=== PATIENT | male | born 1960 | race Caucasian/White ===

== ENCOUNTER 2020-04-16 09:23 | Outpatient (REF) | payer MEDICARE, MEDICAID, SELFPAY ==
[2020-04-16 09:49] LABS: MANUAL DIFF FLAG NO
[2020-04-16 09:50] LABS: Basophils Percent Auto 0.5 % (0-2); Eosinophils Absolute Auto 0.1 X10*3/uL (0.0-0.4); Hematocrit 41.1 % (42-52); Hemoglobin 13.5 g/dl (14.0-18.0); Imm Gran Abs Auto 0.03 X10*3/uL (0.00-0.03); Imm Gran Pct Auto 0.5 % (0.0-0.4); Lymphocytes Absolute Auto 1.3 X10*3/uL (1.2-4.9); Lymphocytes Percent Auto 20.7 % (20-40); Mean Corpuscular HGB Conc 32.8 g/dl (31.0-36.0); Mean Corpuscular Hemoglobin 26.8 pg (27.0-33.0); Mean Corpuscular Volume 81.5 fL (80-98); Mean Platelet Volume 10.6 fL (9.4-12.4); Monocytes Absolute Auto 0.4 X10*3/uL (0.1-1.2); Monocytes Percent Auto 6.7 % (2-11); Neutrophils Absolute Auto 4.5 X10*3/uL (2.0-8.3); Neutrophils Percent Auto 69.6 % (45-73); Platelet Count 139 X10*3/uL (160-400); Red Blood Count 5.04 X10*6/uL (4.60-5.80); White Blood Count 6.4 X10*3/uL (4.8-10.8)
[2020-04-16 10:25] LABS: Alanine Aminotransferase 26 U/L (0-40); Albumin Level 4.1 g/dL (3.5-5.0); Alkaline Phosphatase 112 U/L (39-117); Anion Gap 13 (12-20); Aspartate Amino Transferase 18 U/L (5-37); Bilirubin Total 0.5 mg/dL (0.0-1.0); Blood Urea Nitrogen 20 mg/dL (9-16); Calcium 8.1 mg/dL (8.4-10.2); Carbon Dioxide 23 mmol/L (22-29); Chloride 107 mmol/L (96-108); Estimated Glomerular Filt Rate 36; Glucose Random 222 mg/dL (60-115); Magnesium 2.1 mg/dL (1.6-2.6); Phosphorus 2.4 mg/dL (2.7-4.5); Sodium 139 mmol/L (135-145); Total Protein 6.4 g/dL (6.5-8.0)
[2020-04-17 11:41] LABS: Sirolimus 5.8 ng/mL (3.0-18.0)
== END 2020-04-16 09:24 | disposition home or self-care (01) ==
LOC: HO.LABR 09:23
PROVIDERS: PCP Internal Medicine; Visit Provider Internal Medicine
DX: Z94.4 Liver transplant status (principal)
CPT/HCPCS: 36415; 80053; 80195; 83735; 84100; 85025

== ENCOUNTER 2020-06-04 10:21 | Outpatient (REF) | payer MEDICARE, MEDICAID, SELFPAY ==
[2020-06-04 12:14] LABS: Cholesterol 275 mg/dL; HDL Cholesterol 34 mg/dL; LDL Cholesterol Calculated 198 mg/dl; Triglycerides 219 mg/dL
[2020-06-04 13:42] LABS: Reflex LDLD? No
[2020-06-05 07:23] LABS: Sirolimus 6.6 ng/mL (3.0-18.0)
== END 2020-06-04 10:22 | disposition home or self-care (01) ==
LOC: HO.LABR 10:21
PROVIDERS: Absent Provider Internal Medicine Endocrinology, Diabetes & Metabolism; PCP Internal Medicine; Visit Provider Internal Medicine
DX: E78.2 Mixed hyperlipidemia (principal)
CPT/HCPCS: 36415; 80061; 80195

== ENCOUNTER 2020-07-05 09:16 | Outpatient (REF) | payer MEDICARE, MEDICAID, SELFPAY ==
[2020-07-05 09:47] LABS: MANUAL DIFF FLAG NO
[2020-07-05 09:51] LABS: Basophils Percent Auto 0.3 % (0-2); Eosinophils Absolute Auto 0.2 X10*3/uL (0.0-0.4); Eosinophils Percent Auto 2.7 % (0-4); Hematocrit 40.4 % (42-52); Hemoglobin 13.3 g/dl (14.0-18.0); Imm Gran Abs Auto 0.03 X10*3/uL (0.00-0.03); Imm Gran Pct Auto 0.4 % (0.0-0.4); Lymphocytes Absolute Auto 1.3 X10*3/uL (1.2-4.9); Lymphocytes Percent Auto 19.4 % (20-40); Mean Corpuscular HGB Conc 32.9 g/dl (31.0-36.0); Mean Corpuscular Hemoglobin 27.1 pg (27.0-33.0); Mean Corpuscular Volume 82.3 fL (80-98); Mean Platelet Volume 11.3 fL (9.4-12.4); Monocytes Absolute Auto 0.5 X10*3/uL (0.1-1.2); Monocytes Percent Auto 7.1 % (2-11); Neutrophils Absolute Auto 4.7 X10*3/uL (2.0-8.3); Neutrophils Percent Auto 70.1 % (45-73); Platelet Count 150 X10*3/uL (160-400); Red Blood Count 4.91 X10*6/uL (4.60-5.80); Red Cell Distribution Width 14.2 % (11.0-16.0); White Blood Count 6.8 X10*3/uL (4.8-10.8)
[2020-07-05 10:18] LABS: Alanine Aminotransferase 40 U/L (0-40); Alkaline Phosphatase 112 U/L (39-117); Anion Gap 13 (12-20); Aspartate Amino Transferase 26 U/L (5-37); Bilirubin Total 0.6 mg/dL (0.0-1.0); Blood Urea Nitrogen 19 mg/dL (9-16); Calcium 8.5 mg/dL (8.4-10.2); Carbon Dioxide 23 mmol/L (22-29); Chloride 107 mmol/L (96-108); Estimated Glomerular Filt Rate 39; Glucose Random 212 mg/dL (60-115); Magnesium 2.1 mg/dL (1.6-2.6); Phosphorus 2.7 mg/dL (2.7-4.5); Potassium 4.2 mmol/L (3.3-5.1); Sodium 139 mmol/L (135-145); Total Protein 6.4 g/dL (6.5-8.0)
[2020-07-06 04:32] LABS: Sirolimus 3.8 ng/mL (3.0-18.0)
== END 2020-07-05 09:17 | disposition home or self-care (01) ==
LOC: HO.LAB 09:16
PROVIDERS: PCP Internal Medicine; Visit Provider Internal Medicine
DX: Z94.4 Liver transplant status (principal)
CPT/HCPCS: 36415; 80053; 80195; 83735; 84100; 85025

== ENCOUNTER 2020-09-02 09:13 | Outpatient (REF) | payer MEDICARE, MEDICAID, SELFPAY ==
[2020-09-02 11:05] LABS: Basophils Percent Auto 0.4 % (0-2); Monocytes Absolute Auto 0.4 X10*3/uL (0.1-1.2); Red Cell Distribution Width 14.1 % (11.0-16.0)
[2020-09-02 11:07] LABS: Eosinophils Absolute Auto 0.1 X10*3/uL (0.0-0.4); Eosinophils Percent Auto 2.6 % (0-4); Hematocrit 41.2 % (42-52); Hemoglobin 13.7 g/dl (14.0-18.0); Imm Gran Abs Auto 0.03 X10*3/uL (0.00-0.03); Imm Gran Pct Auto 0.6 % (0.0-0.4); Lymphocytes Absolute Auto 1.2 X10*3/uL (1.2-4.9); Lymphocytes Percent Auto 23.5 % (20-40); Mean Corpuscular HGB Conc 33.3 g/dl (31.0-36.0); Mean Corpuscular Hemoglobin 28.1 pg (27.0-33.0); Mean Corpuscular Volume 84.6 fL (80-98); Mean Platelet Volume 11.2 fL (9.4-12.4); Monocytes Percent Auto 8.1 % (2-11); Neutrophils Absolute Auto 3.2 X10*3/uL (2.0-8.3); Neutrophils Percent Auto 64.8 % (45-73); Platelet Count 122 X10*3/uL (160-400); Red Blood Count 4.87 X10*6/uL (4.60-5.80); White Blood Count 4.9 X10*3/uL (4.8-10.8)
[2020-09-02 11:09] LABS: MANUAL DIFF FLAG NO
[2020-09-02 11:25] LABS: Alanine Aminotransferase 25 U/L (0-40); Alkaline Phosphatase 102 U/L (39-117); Anion Gap 15 (12-20); Aspartate Amino Transferase 16 U/L (5-37); Bilirubin Total 0.4 mg/dL (0.0-1.0); Blood Urea Nitrogen 22 mg/dL (9-16); Calcium 8.3 mg/dL (8.4-10.2); Carbon Dioxide 21 mmol/L (22-29); Chloride 108 mmol/L (96-108); Estimated Glomerular Filt Rate 38; Glucose Random 167 mg/dL (60-115); Phosphorus 2.3 mg/dL (2.7-4.5); Sodium 140 mmol/L (135-145); Total Protein 6.3 g/dL (6.5-8.0)
== END 2020-09-02 09:14 | disposition home or self-care (01) ==
LOC: HO.LABR 09:13
PROVIDERS: PCP Internal Medicine; Visit Provider Internal Medicine
DX: Z94.4 Liver transplant status (principal); Z79.899 Other long term (current) drug therapy
CPT/HCPCS: 36415; 80053; 80195; 83735; 84100; 85025

== ENCOUNTER 2020-10-11 10:31 | Outpatient (REF) | payer MEDICARE, MEDICAID, SELFPAY ==
[2020-10-11 11:17] LABS: MANUAL DIFF FLAG NO
[2020-10-11 11:45] LABS: Cholesterol 263 mg/dL; HDL Cholesterol 33 mg/dL; Triglycerides 425 mg/dL
[2020-10-11 11:59] LABS: Alanine Aminotransferase 29 U/L (0-40); Albumin Level 4.2 g/dL (3.5-5.0); Alkaline Phosphatase 115 U/L (39-117); Anion Gap 13 (12-20); Aspartate Amino Transferase 20 U/L (5-37); Bilirubin Total 0.7 mg/dL (0.0-1.0); Blood Urea Nitrogen 19 mg/dL (9-16); Calcium 8.9 mg/dL (8.4-10.2); Carbon Dioxide 22 mmol/L (22-29); Chloride 106 mmol/L (96-108); Estimated Glomerular Filt Rate 40; Glucose Random 142 mg/dL (60-115); Magnesium 2.2 mg/dL (1.6-2.6); Phosphorus 2.4 mg/dL (2.7-4.5); Potassium 4.3 mmol/L (3.3-5.1); Sodium 137 mmol/L (135-145); Total Protein 6.9 g/dL (6.5-8.0)
[2020-10-11 12:02] LABS: Basophils Percent Auto 0.4 % (0-2); Eosinophils Absolute Auto 0.1 X10*3/uL (0.0-0.4); Eosinophils Percent Auto 1.9 % (0-4); Hematocrit 42.7 % (42-52); Hemoglobin 14.2 g/dl (14.0-18.0); Imm Gran Abs Auto 0.03 X10*3/uL (0.00-0.03); Imm Gran Pct Auto 0.4 % (0.0-0.4); Lymphocytes Absolute Auto 1.4 X10*3/uL (1.2-4.9); Lymphocytes Percent Auto 18.6 % (20-40); Mean Corpuscular HGB Conc 33.3 g/dl (31.0-36.0); Mean Corpuscular Volume 84.2 fL (80-98); Mean Platelet Volume 11.1 fL (9.4-12.4); Monocytes Absolute Auto 0.6 X10*3/uL (0.1-1.2); Monocytes Percent Auto 7.6 % (2-11); Neutrophils Absolute Auto 5.2 X10*3/uL (2.0-8.3); Neutrophils Percent Auto 71.1 % (45-73); Platelet Count 158 X10*3/uL (160-400); Red Blood Count 5.07 X10*6/uL (4.60-5.80); Red Cell Distribution Width 13.2 % (11.0-16.0); White Blood Count 7.3 X10*3/uL (4.8-10.8)
[2020-10-11 13:03] LABS: Reflex LDLD? Yes
[2020-10-12 05:41] LABS: Sirolimus 2.7 ng/mL (3.0-18.0)
[2020-10-12 12:57] LABS: LDL Cholesterol Direct 170 mg/dL (<100)
== END 2020-10-11 10:32 | disposition home or self-care (01) ==
LOC: HO.LAB 10:31
PROVIDERS: Absent Provider Internal Medicine Endocrinology, Diabetes & Metabolism; PCP Internal Medicine; Visit Provider Internal Medicine
DX: E78.2 Mixed hyperlipidemia (principal); Z94.4 Liver transplant status
CPT/HCPCS: 36415; 80053; 80061; 80195; 83721; 83735; 84100; 85025

== ENCOUNTER 2020-12-02 09:40 | Outpatient (REF) | payer MEDICARE, MEDICAID, SELFPAY ==
[2020-12-02 10:01] LABS: MANUAL DIFF FLAG NO
[2020-12-02 10:10] LABS: Basophils Percent Auto 0.3 % (0-2); Eosinophils Absolute Auto 0.2 X10*3/uL (0.0-0.4); Eosinophils Percent Auto 2.5 % (0-4); Hematocrit 41.3 % (42-52); Hemoglobin 14.1 g/dl (14.0-18.0); Imm Gran Abs Auto 0.02 X10*3/uL (0.00-0.03); Imm Gran Pct Auto 0.3 % (0.0-0.4); Lymphocytes Absolute Auto 1.2 X10*3/uL (1.2-4.9); Lymphocytes Percent Auto 18.2 % (20-40); Mean Corpuscular HGB Conc 34.1 g/dl (31.0-36.0); Mean Corpuscular Hemoglobin 29.1 pg (27.0-33.0); Mean Corpuscular Volume 85.3 fL (80-98); Mean Platelet Volume 11.1 fL (9.4-12.4); Monocytes Absolute Auto 0.4 X10*3/uL (0.1-1.2); Monocytes Percent Auto 6.7 % (2-11); Neutrophils Absolute Auto 4.6 X10*3/uL (2.0-8.3); Platelet Count 153 X10*3/uL (160-400); Red Blood Count 4.84 X10*6/uL (4.60-5.80); Red Cell Distribution Width 13.1 % (11.0-16.0); White Blood Count 6.4 X10*3/uL (4.8-10.8)
[2020-12-02 10:33] LABS: Alanine Aminotransferase 22 U/L (0-40); Albumin Level 4.1 g/dL (3.5-5.0); Alkaline Phosphatase 115 U/L (39-117); Anion Gap 13 (12-20); Aspartate Amino Transferase 17 U/L (5-37); Bilirubin Total 0.4 mg/dL (0.0-1.0); Blood Urea Nitrogen 20 mg/dL (9-16); Calcium 8.7 mg/dL (8.4-10.2); Carbon Dioxide 21 mmol/L (22-29); Chloride 110 mmol/L (96-108); Estimated Glomerular Filt Rate 37; Glucose Random 198 mg/dL (60-115); Phosphorus 2.5 mg/dL (2.7-4.5); Potassium 4.1 mmol/L (3.3-5.1); Sodium 140 mmol/L (135-145); Total Protein 6.7 g/dL (6.5-8.0)
[2020-12-03 18:37] LABS: Sirolimus 2.8 ng/mL (3.0-18.0)
== END 2020-12-02 09:41 | disposition home or self-care (01) ==
LOC: HO.LABR 09:40
PROVIDERS: PCP Internal Medicine; Visit Provider Internal Medicine
DX: Z94.4 Liver transplant status (principal)
CPT/HCPCS: 36415; 80053; 80195; 83735; 84100; 85025

== ENCOUNTER 2021-02-02 08:42 | Outpatient (REF) | payer MEDICARE, MEDICAID, SELFPAY ==
[2021-02-02 09:44] LABS: MANUAL DIFF FLAG NO
[2021-02-02 09:47] LABS: Basophils Percent Auto 0.3 % (0-2); Eosinophils Absolute Auto 0.1 X10*3/uL (0.0-0.4); Eosinophils Percent Auto 1.6 % (0-4); Hematocrit 42.8 % (42-52); Hemoglobin 14.7 g/dl (14.0-18.0); Imm Gran Abs Auto 0.02 X10*3/uL (0.00-0.03); Imm Gran Pct Auto 0.3 % (0.0-0.4); Lymphocytes Absolute Auto 1.5 X10*3/uL (1.2-4.9); Mean Corpuscular HGB Conc 34.3 g/dl (31.0-36.0); Mean Corpuscular Hemoglobin 28.9 pg (27.0-33.0); Mean Corpuscular Volume 84.3 fL (80-98); Mean Platelet Volume 11.1 fL (9.4-12.4); Monocytes Absolute Auto 0.4 X10*3/uL (0.1-1.2); Monocytes Percent Auto 6.4 % (2-11); Neutrophils Absolute Auto 4.4 X10*3/uL (2.0-8.3); Neutrophils Percent Auto 68.4 % (45-73); Platelet Count 156 X10*3/uL (160-400); Red Blood Count 5.08 X10*6/uL (4.60-5.80); Red Cell Distribution Width 13.2 % (11.0-16.0); White Blood Count 6.4 X10*3/uL (4.8-10.8)
[2021-02-02 10:25] LABS: Alanine Aminotransferase 24 U/L (0-40); Albumin Level 4.1 g/dL (3.5-5.0); Alkaline Phosphatase 119 U/L (39-117); Anion Gap 11 (12-20); Aspartate Amino Transferase 15 U/L (5-37); Bilirubin Total 0.5 mg/dL (0.0-1.0); Blood Urea Nitrogen 19 mg/dL (9-16); Carbon Dioxide 23 mmol/L (22-29); Chloride 109 mmol/L (96-108); Estimated Glomerular Filt Rate 38; Glucose Random 185 mg/dL (60-115); Magnesium 2.1 mg/dL (1.6-2.6); Potassium 3.9 mmol/L (3.3-5.1); Sodium 139 mmol/L (135-145); Total Protein 6.7 g/dL (6.5-8.0)
[2021-02-02 10:45] LABS: Phosphorus 2.3 mg/dL (2.7-4.5)
[2021-02-03 10:12] LABS: Sirolimus 4.1 ng/mL (3.0-18.0)
== END 2021-02-02 08:43 | disposition home or self-care (01) ==
LOC: HO.LABR 08:42
PROVIDERS: PCP Internal Medicine; Visit Provider Internal Medicine
DX: Z94.4 Liver transplant status (principal)
CPT/HCPCS: 36415; 80053; 80195; 83735; 84100; 85025

== ENCOUNTER 2021-03-30 09:28 | Outpatient (REF) | payer MEDICARE, MEDICAID, SELFPAY ==
[2021-03-30 09:45] LABS: MANUAL DIFF FLAG NO
[2021-03-30 10:30] LABS: Basophils Percent Auto 0.2 % (0-2); Eosinophils Absolute Auto 0.1 X10*3/uL (0.0-0.4); Eosinophils Percent Auto 1.4 % (0-4); Hematocrit 41.8 % (42.0-52.0); Hemoglobin 14.2 g/dl (14.0-18.0); Imm Gran Abs Auto 0.03 X10*3/uL (0.00-0.03); Imm Gran Pct Auto 0.5 % (0.0-0.4); Lymphocytes Absolute Auto 1.2 X10*3/uL (1.2-4.9); Mean Corpuscular Hemoglobin 28.6 pg (27.0-33.0); Mean Corpuscular Volume 84.1 fL (80.0-98.0); Mean Platelet Volume 11.4 fL (9.4-12.4); Monocytes Absolute Auto 0.5 X10*3/uL (0.1-1.2); Monocytes Percent Auto 6.9 % (2-11); Neutrophils Absolute Auto 4.7 x10*3/uL (2.0-8.3); Platelet Count 159 X10*3/uL (160-400); Red Blood Count 4.97 X10*6/uL (4.60-5.80); Red Cell Distribution Width 13.1 % (11.0-16.0); White Blood Count 6.5 X10*3/uL (4.8-10.8)
[2021-03-30 10:44] LABS: Alanine Aminotransferase 27 U/L (0-40); Albumin Level 4.3 g/dL (3.5-5.0); Alkaline Phosphatase 134 U/L (39-117); Anion Gap 12 (12-20); Aspartate Amino Transferase 22 U/L (5-37); Bilirubin Total 0.7 mg/dL (0.0-1.0); Blood Urea Nitrogen 15 mg/dL (9-16); Calcium 8.6 mg/dL (8.4-10.2); Carbon Dioxide 23 mmol/L (22-29); Chloride 108 mmol/L (96-108); Estimated Glomerular Filt Rate 37; Glucose Random 184 mg/dL (60-115); Magnesium 2.1 mg/dL (1.6-2.6); Phosphorus 2.3 mg/dL (2.7-4.5); Sodium 139 mmol/L (135-145); Total Protein 6.7 g/dL (6.5-8.0)
[2021-03-30 10:48] LABS: Cholesterol 171 mg/dL; HDL Cholesterol 32 mg/dL; LDL Cholesterol Calculated 94 mg/dl; Triglycerides 227 mg/dL
[2021-03-30 11:02] LABS: TSH reflex Free T4 2.19 uIU/mL (0.32-4.0)
[2021-03-30 11:03] LABS: Reflex LDLD? No
[2021-03-30 11:13] LABS: Vitamin B12 745 pg/mL (200-900)
[2021-03-31 11:31] LABS: Sirolimus 3.1 ng/mL (3.0-18.0)
== END 2021-03-30 09:29 | disposition home or self-care (01) ==
LOC: HO.LAB 09:28
PROVIDERS: Absent Provider Nurse Practitioner; PCP Internal Medicine; Visit Provider Internal Medicine
DX: Z94.4 Liver transplant status (principal); Z79.899 Other long term (current) drug therapy
CPT/HCPCS: 36415; 80053; 80061; 80195; 82607; 83735; 84100; 84443; 85025

== ENCOUNTER 2021-07-13 09:03 | Outpatient (REF) | payer MEDICARE, MEDICAID, SELFPAY ==
[2021-07-13 09:28] LABS: MANUAL DIFF FLAG NO
[2021-07-13 09:34] LABS: Basophils Percent Auto 0.2 % (0-2); Eosinophils Absolute Auto 0.1 X10*3/uL (0.0-0.4); Eosinophils Percent Auto 2.1 % (0-4); Hemoglobin 14.2 g/dl (14.0-18.0); Imm Gran Abs Auto 0.02 X10*3/uL (0.00-0.03); Imm Gran Pct Auto 0.4 % (0.0-0.4); Lymphocytes Absolute Auto 1.2 X10*3/uL (1.2-4.9); Lymphocytes Percent Auto 21.5 % (20-40); Mean Corpuscular HGB Conc 33.8 g/dl (31.0-36.0); Mean Corpuscular Hemoglobin 29.1 pg (27.0-33.0); Mean Corpuscular Volume 86.1 fL (80.0-98.0); Mean Platelet Volume 10.7 fL (9.4-12.4); Monocytes Absolute Auto 0.4 X10*3/uL (0.1-1.2); Monocytes Percent Auto 7.8 % (2-11); Neutrophils Absolute Auto 3.8 x10*3/uL (2.0-8.3); Platelet Count 145 X10*3/uL (160-400); Red Blood Count 4.88 X10*6/uL (4.60-5.80); Red Cell Distribution Width 12.9 % (11.0-16.0); White Blood Count 5.6 X10*3/uL (4.8-10.8)
[2021-07-13 10:53] LABS: Alanine Aminotransferase 42 U/L (0-40); Albumin Level 4.1 g/dL (3.5-5.0); Alkaline Phosphatase 125 U/L (39-117); Anion Gap 13 (12-20); Aspartate Amino Transferase 25 U/L (5-37); Bilirubin Total 0.6 mg/dL (0.0-1.0); Blood Urea Nitrogen 16 mg/dL (9-16); Calcium 9.1 mg/dL (8.4-10.2); Carbon Dioxide 23 mmol/L (22-29); Chloride 109 mmol/L (96-108); Estimated Glomerular Filt Rate 40; Glucose Random 141 mg/dL (60-115); Magnesium 2.1 mg/dL (1.6-2.6); Phosphorus 2.2 mg/dL (2.7-4.5); Potassium 4.2 mmol/L (3.3-5.1); Sodium 141 mmol/L (135-145); Total Protein 6.8 g/dL (6.5-8.0)
[2021-07-14 10:11] LABS: Sirolimus 2.3 ng/mL (3.0-18.0)
== END 2021-07-13 09:04 | disposition home or self-care (01) ==
LOC: HO.LABR 09:03
PROVIDERS: PCP Internal Medicine; Visit Provider Internal Medicine
DX: Z94.4 Liver transplant status (principal); Z79.899 Other long term (current) drug therapy
CPT/HCPCS: 36415; 80053; 80195; 83735; 84100; 85025

== ENCOUNTER 2021-10-18 10:44 | Outpatient (REF) | payer MEDICARE, MEDICAID, SELFPAY ==
[2021-10-18 11:01] LABS: MANUAL DIFF FLAG NO
[2021-10-18 11:13] LABS: Basophils Percent Auto 0.3 % (0-2); Eosinophils Absolute Auto 0.1 X10*3/uL (0.0-0.4); Eosinophils Percent Auto 1.2 % (0-4); Hematocrit 40.5 % (42.0-52.0); Hemoglobin 13.7 g/dl (14.0-18.0); Imm Gran Abs Auto 0.02 X10*3/uL (0.00-0.03); Imm Gran Pct Auto 0.3 % (0.0-0.4); Lymphocytes Absolute Auto 1.2 X10*3/uL (1.2-4.9); Lymphocytes Percent Auto 18.7 % (20-40); Mean Corpuscular HGB Conc 33.8 g/dl (31.0-36.0); Mean Corpuscular Hemoglobin 28.9 pg (27.0-33.0); Mean Corpuscular Volume 85.4 fL (80.0-98.0); Mean Platelet Volume 10.6 fL (9.4-12.4); Monocytes Absolute Auto 0.5 X10*3/uL (0.1-1.2); Monocytes Percent Auto 7.7 % (2-11); Neutrophils Absolute Auto 4.6 x10*3/uL (2.0-8.3); Neutrophils Percent Auto 71.8 % (45-73); Platelet Count 141 X10*3/uL (160-400); Red Blood Count 4.74 X10*6/uL (4.60-5.80); White Blood Count 6.5 X10*3/uL (4.8-10.8)
[2021-10-18 12:02] LABS: Alanine Aminotransferase 23 U/L (0-40); Alkaline Phosphatase 123 U/L (39-117); Anion Gap 10 (12-20); Aspartate Amino Transferase 16 U/L (5-37); Bilirubin Total 0.4 mg/dL (0.0-1.0); Blood Urea Nitrogen 18 mg/dL (9-16); Calcium 9.1 mg/dL (8.4-10.2); Carbon Dioxide 23 mmol/L (22-29); Chloride 110 mmol/L (96-108); Estimated Glomerular Filt Rate 39; Glucose Random 107 mg/dL (60-115); Magnesium 2.3 mg/dL (1.6-2.6); Potassium 4.2 mmol/L (3.3-5.1); Sodium 139 mmol/L (135-145); Total Protein 6.7 g/dL (6.5-8.0)
[2021-10-18 12:20] LABS: Phosphorus 2.2 mg/dL (2.7-4.5)
[2021-10-19 21:25] LABS: Sirolimus 2.6 ng/mL (3.0-18.0)
== END 2021-10-18 10:45 | disposition home or self-care (01) ==
LOC: HO.LABR 10:44
PROVIDERS: PCP Internal Medicine; Visit Provider Internal Medicine
DX: Z94.4 Liver transplant status (principal); Z79.899 Other long term (current) drug therapy
CPT/HCPCS: 36415; 80053; 80195; 83735; 84100; 85025

== ENCOUNTER 2021-12-01 09:25 | Outpatient (REF) | payer MEDICARE, MEDICAID, SELFPAY ==
[2021-12-01 09:52] LABS: MANUAL DIFF FLAG NO
[2021-12-01 09:57] LABS: Basophils Percent Auto 0.3 % (0-2); Eosinophils Absolute Auto 0.1 X10*3/uL (0.0-0.4); Eosinophils Percent Auto 1.9 % (0-4); Hematocrit 41.5 % (42.0-52.0); Imm Gran Abs Auto 0.02 X10*3/uL (0.00-0.03); Imm Gran Pct Auto 0.3 % (0.0-0.4); Lymphocytes Absolute Auto 1.2 X10*3/uL (1.2-4.9); Lymphocytes Percent Auto 18.8 % (20-40); Mean Corpuscular HGB Conc 33.7 g/dl (31.0-36.0); Mean Corpuscular Hemoglobin 28.6 pg (27.0-33.0); Mean Corpuscular Volume 84.7 fL (80.0-98.0); Mean Platelet Volume 10.2 fL (9.4-12.4); Monocytes Absolute Auto 0.5 X10*3/uL (0.1-1.2); Monocytes Percent Auto 7.4 % (2-11); Neutrophils Absolute Auto 4.6 x10*3/uL (2.0-8.3); Neutrophils Percent Auto 71.3 % (45-73); Platelet Count 152 X10*3/uL (160-400); Red Cell Distribution Width 12.9 % (11.0-16.0); White Blood Count 6.4 X10*3/uL (4.8-10.8)
[2021-12-01 10:17] LABS: Alanine Aminotransferase 32 U/L (0-40); Albumin Level 4.2 g/dL (3.5-5.0); Alkaline Phosphatase 138 U/L (39-117); Anion Gap 12 (12-20); Aspartate Amino Transferase 23 U/L (5-37); Bilirubin Total 0.5 mg/dL (0.0-1.0); Blood Urea Nitrogen 17 mg/dL (9-16); Calcium 8.6 mg/dL (8.4-10.2); Carbon Dioxide 25 mmol/L (22-29); Chloride 108 mmol/L (96-108); Estimated Glomerular Filt Rate 37; Glucose Random 140 mg/dL (60-115); Phosphorus 2.9 mg/dL (2.7-4.5); Potassium 4.9 mmol/L (3.3-5.1); Sodium 140 mmol/L (135-145); Total Protein 6.8 g/dL (6.5-8.0)
[2021-12-03 05:22] LABS: Sirolimus 2.1 ng/mL (3.0-18.0)
[2021-12-07 13:22] LABS: Vitamin D 25-OH, D2 <4 ng/mL; Vitamin D 25-OH, D3 35 ng/mL; Vitamin D 25-OH, Total 35 ng/mL (30-100)
== END 2021-12-01 09:26 | disposition home or self-care (01) ==
LOC: HO.LABR 09:25
PROVIDERS: PCP Internal Medicine; Visit Provider Internal Medicine
DX: Z94.4 Liver transplant status (principal); Z79.899 Other long term (current) drug therapy; E55.9 Vitamin D deficiency, unspecified
CPT/HCPCS: 36415; 80053; 80195; 82306; 83735; 84100; 85025

== ENCOUNTER 2022-03-24 09:42 | Outpatient (REF) | payer MEDICARE, MEDICAID, SELFPAY ==
[2022-03-24 10:00] LABS: MANUAL DIFF FLAG NO
[2022-03-24 10:34] LABS: Basophils Percent Auto 0.3 % (0-2); Eosinophils Absolute Auto 0.1 X10*3/uL (0.0-0.4); Eosinophils Percent Auto 1.4 % (0-4); Hematocrit 41.1 % (42.0-52.0); Hemoglobin 13.8 g/dl (14.0-18.0); Imm Gran Abs Auto 0.02 X10*3/uL (0.00-0.03); Imm Gran Pct Auto 0.3 % (0.0-0.4); Lymphocytes Absolute Auto 1.3 X10*3/uL (1.2-4.9); Lymphocytes Percent Auto 20.5 % (20-40); Mean Corpuscular HGB Conc 33.6 g/dl (31.0-36.0); Mean Corpuscular Hemoglobin 28.6 pg (27.0-33.0); Mean Corpuscular Volume 85.3 fL (80.0-98.0); Mean Platelet Volume 11.2 fL (9.4-12.4); Monocytes Absolute Auto 0.4 X10*3/uL (0.1-1.2); Monocytes Percent Auto 6.4 % (2-11); Neutrophils Absolute Auto 4.5 x10*3/uL (2.0-8.3); Neutrophils Percent Auto 71.1 % (45-73); Platelet Count 144 X10*3/uL (160-400); Red Blood Count 4.82 X10*6/uL (4.60-5.80); Red Cell Distribution Width 12.7 % (11.0-16.0); White Blood Count 6.3 X10*3/uL (4.8-10.8)
[2022-03-24 11:16] LABS: Alanine Aminotransferase 24 U/L (0-40); Alkaline Phosphatase 138 U/L (39-117); Anion Gap 16 (12-20); Aspartate Amino Transferase 18 U/L (5-37); Bilirubin Total 0.4 mg/dL (0.0-1.0); Blood Urea Nitrogen 17 mg/dL (9-16); Calcium 8.7 mg/dL (8.4-10.2); Carbon Dioxide 22 mmol/L (22-29); Chloride 107 mmol/L (96-108); Estimated Glomerular Filt Rate 39; Glucose Random 172 mg/dL (60-115); Magnesium 2.1 mg/dL (1.6-2.6); Phosphorus 2.3 mg/dL (2.7-4.5); Potassium 4.1 mmol/L (3.3-5.1); Sodium 141 mmol/L (135-145); Total Protein 6.5 g/dL (6.5-8.0)
[2022-03-26 05:23] LABS: Sirolimus 3.1 ng/mL (3.0-18.0)
== END 2022-03-24 09:43 | disposition home or self-care (01) ==
LOC: HO.LABR 09:42
PROVIDERS: PCP Internal Medicine; Visit Provider Internal Medicine
DX: Z94.4 Liver transplant status (principal); Z79.899 Other long term (current) drug therapy
CPT/HCPCS: 36415; 80053; 80195; 83735; 84100; 85025

== ENCOUNTER 2022-06-14 08:43 | Outpatient (REF) | payer MEDICARE, MEDICAID, SELFPAY ==
[2022-06-14 08:52] LABS: MANUAL DIFF FLAG NO
[2022-06-14 09:21] LABS: Basophils Percent Auto 0.3 % (0-2); Eosinophils Absolute Auto 0.1 X10*3/uL (0.0-0.4); Eosinophils Percent Auto 1.1 % (0-4); Hematocrit 42.4 % (42.0-52.0); Hemoglobin 14.4 g/dl (14.0-18.0); Imm Gran Abs Auto 0.02 X10*3/uL (0.00-0.03); Imm Gran Pct Auto 0.3 % (0.0-0.4); Lymphocytes Absolute Auto 1.8 X10*3/uL (1.2-4.9); Lymphocytes Percent Auto 24.8 % (20-40); Mean Corpuscular Hemoglobin 28.7 pg (27.0-33.0); Mean Corpuscular Volume 84.5 fL (80.0-98.0); Mean Platelet Volume 10.8 fL (9.4-12.4); Monocytes Absolute Auto 0.5 X10*3/uL (0.1-1.2); Neutrophils Absolute Auto 4.8 x10*3/uL (2.0-8.3); Neutrophils Percent Auto 66.5 % (45-73); Platelet Count 169 X10*3/uL (160-400); Red Blood Count 5.02 X10*6/uL (4.60-5.80); Red Cell Distribution Width 12.8 % (11.0-16.0); White Blood Count 7.1 X10*3/uL (4.8-10.8)
[2022-06-14 09:39] LABS: Alanine Aminotransferase 32 U/L (0-40); Albumin Level 4.3 g/dL (3.5-5.0); Alkaline Phosphatase 139 U/L (39-117); Anion Gap 15 (12-20); Aspartate Amino Transferase 19 U/L (5-37); Bilirubin Total 0.7 mg/dL (0.0-1.0); Blood Urea Nitrogen 29 mg/dL (9-16); Calcium 9.3 mg/dL (8.4-10.2); Carbon Dioxide 24 mmol/L (22-29); Chloride 109 mmol/L (96-108); Estimated Glomerular Filt Rate 33; Glucose Random 182 mg/dL (60-115); Magnesium 2.1 mg/dL (1.6-2.6); Phosphorus 2.7 mg/dL (2.7-4.5); Potassium 4.5 mmol/L (3.3-5.1); Sodium 143 mmol/L (135-145); Total Protein 6.8 g/dL (6.5-8.0)
[2022-06-15 11:42] LABS: Sirolimus 3.6 ng/mL (3.0-18.0)
== END 2022-06-14 08:44 | disposition home or self-care (01) ==
LOC: HO.LABR 08:43
PROVIDERS: PCP Internal Medicine; Visit Provider Internal Medicine
DX: Z94.4 Liver transplant status (principal); Z79.899 Other long term (current) drug therapy
CPT/HCPCS: 36415; 80053; 80195; 83735; 84100; 85025

== ENCOUNTER 2022-09-18 09:41 | Outpatient (REF) | payer MEDICARE, MEDICAID, SELFPAY ==
[2022-09-18 10:07] LABS: MANUAL DIFF FLAG NO
[2022-09-18 10:42] LABS: Basophils Percent Auto 0.3 % (0-2); Eosinophils Absolute Auto 0.1 X10*3/uL (0.0-0.4); Eosinophils Percent Auto 1.1 % (0-4); Hematocrit 41.3 % (42.0-52.0); Hemoglobin 13.8 g/dl (14.0-18.0); Imm Gran Abs Auto 0.02 X10*3/uL (0.00-0.03); Imm Gran Pct Auto 0.3 % (0.0-0.4); Lymphocytes Absolute Auto 1.2 X10*3/uL (1.2-4.9); Lymphocytes Percent Auto 18.8 % (20-40); Mean Corpuscular HGB Conc 33.4 g/dl (31.0-36.0); Mean Corpuscular Hemoglobin 28.4 pg (27.0-33.0); Mean Platelet Volume 11.6 fL (9.4-12.4); Monocytes Absolute Auto 0.4 X10*3/uL (0.1-1.2); Monocytes Percent Auto 6.1 % (2-11); Neutrophils Absolute Auto 4.8 x10*3/uL (2.0-8.3); Neutrophils Percent Auto 73.4 % (45-73); Platelet Count 131 X10*3/uL (160-400); Red Blood Count 4.86 X10*6/uL (4.60-5.80); Red Cell Distribution Width 12.9 % (11.0-16.0); White Blood Count 6.5 X10*3/uL (4.8-10.8)
== END 2022-09-18 09:42 | disposition home or self-care (01) ==
LOC: HO.LAB 09:41
PROVIDERS: PCP Internal Medicine; Visit Provider Internal Medicine
DX: Z94.4 Liver transplant status (principal)
CPT/HCPCS: 36415; 85025

== ENCOUNTER 2022-12-27 09:37 | Outpatient (REF) | payer MEDICARE, MEDICAID, SELFPAY ==
[2022-12-27 10:01] LABS: MANUAL DIFF FLAG NO
[2022-12-27 10:54] LABS: Basophils Percent Auto 0.3 % (0-2); Eosinophils Absolute Auto 0.1 X10*3/uL (0.0-0.4); Eosinophils Percent Auto 1.3 % (0-4); Hematocrit 42.7 % (42.0-52.0); Hemoglobin 13.9 g/dl (14.0-18.0); Imm Gran Abs Auto 0.02 X10*3/uL (0.00-0.03); Imm Gran Pct Auto 0.3 % (0.0-0.4); Lymphocytes Absolute Auto 1.4 X10*3/uL (1.2-4.9); Lymphocytes Percent Auto 22.4 % (20-40); Mean Corpuscular HGB Conc 32.6 g/dl (31.0-36.0); Mean Corpuscular Hemoglobin 27.9 pg (27.0-33.0); Mean Corpuscular Volume 85.7 fL (80.0-98.0); Mean Platelet Volume 11.3 fL (9.4-12.4); Monocytes Absolute Auto 0.4 X10*3/uL (0.1-1.2); Monocytes Percent Auto 6.7 % (2-11); Neutrophils Absolute Auto 4.4 x10*3/uL (2.0-8.3); Platelet Count 141 X10*3/uL (160-400); Red Blood Count 4.98 X10*6/uL (4.60-5.80); Red Cell Distribution Width 13.2 % (11.0-16.0); White Blood Count 6.3 X10*3/uL (4.8-10.8)
[2022-12-27 11:23] LABS: Alanine Aminotransferase 17 U/L (0-40); Albumin Level 4.1 g/dL (3.5-5.0); Alkaline Phosphatase 125 U/L (39-117); Anion Gap 14 (12-20); Aspartate Amino Transferase 14 U/L (5-37); Bilirubin Total 0.5 mg/dL (0.0-1.0); Blood Urea Nitrogen 17 mg/dL (9-16); Calcium 9.5 mg/dL (8.4-10.2); Carbon Dioxide 26 mmol/L (22-29); Chloride 108 mmol/L (96-108); Estimated Glomerular Filt Rate 35; Glucose Random 184 mg/dL (60-115); Magnesium 2.3 mg/dL (1.6-2.6); Phosphorus 2.2 mg/dL (2.7-4.5); Potassium 4.8 mmol/L (3.3-5.1); Sodium 143 mmol/L (135-145); Total Protein 7.1 g/dL (6.5-8.0)
[2022-12-29 04:34] LABS: Sirolimus 2.7 ng/mL (3.0-18.0)
== END 2022-12-27 09:38 | disposition home or self-care (01) ==
LOC: HO.LAB 09:37
PROVIDERS: PCP Internal Medicine; Visit Provider Internal Medicine
DX: D89.9 Disorder involving the immune mechanism, unspecified (principal); Z94.4 Liver transplant status; Z79.899 Other long term (current) drug therapy
CPT/HCPCS: 36415; 80053; 80195; 83735; 84100; 85025

== ENCOUNTER 2023-04-18 10:12 | Outpatient (REF) | payer MEDICARE, MEDICAID, SELFPAY ==
[2023-04-18 10:28] LABS: MANUAL DIFF FLAG NO
[2023-04-18 11:47] LABS: Basophils Percent Auto 0.5 % (0-2); Eosinophils Absolute Auto 0.1 X10*3/uL (0.0-0.4); Eosinophils Percent Auto 1.3 % (0-4); Imm Gran Abs Auto 0.02 X10*3/uL (0.00-0.03); Imm Gran Pct Auto 0.3 % (0.0-0.4); Lymphocytes Absolute Auto 1.4 X10*3/uL (1.2-4.9); Lymphocytes Percent Auto 23.7 % (20-40); Mean Corpuscular HGB Conc 33.3 g/dl (31.0-36.0); Mean Corpuscular Hemoglobin 29.1 pg (27.0-33.0); Mean Corpuscular Volume 87.3 fL (80.0-98.0); Mean Platelet Volume 10.9 fL (9.4-12.4); Monocytes Absolute Auto 0.4 X10*3/uL (0.1-1.2); Monocytes Percent Auto 7.3 % (2-11); Neutrophils Percent Auto 66.9 % (45-73); Platelet Count 153 X10*3/uL (160-400); Red Blood Count 4.81 X10*6/uL (4.60-5.80); Red Cell Distribution Width 12.9 % (11.0-16.0)
[2023-04-18 12:32] LABS: Alanine Aminotransferase 19 U/L (0-40); Albumin Level 4.1 g/dL (3.5-5.0); Alkaline Phosphatase 116 U/L (39-117); Anion Gap 13 (12-20); Aspartate Amino Transferase 14 U/L (5-37); Bilirubin Total 0.4 mg/dL (0.0-1.0); Blood Urea Nitrogen 22 mg/dL (9-16); Calcium 9.1 mg/dL (8.4-10.2); Carbon Dioxide 27 mmol/L (22-29); Chloride 107 mmol/L (96-108); Estimated Glomerular Filt Rate 40; Glucose Random 152 mg/dL (60-115); Magnesium 2.1 mg/dL (1.6-2.6); Phosphorus 2.7 mg/dL (2.7-4.5); Potassium 4.5 mmol/L (3.3-5.1); Sodium 142 mmol/L (135-145)
[2023-04-19 14:08] LABS: Sirolimus 3.1 ng/mL (3.0-18.0)
== END 2023-04-18 10:13 | disposition home or self-care (01) ==
LOC: HO.LAB 10:12
PROVIDERS: PCP Internal Medicine; Visit Provider Internal Medicine
DX: D89.9 Disorder involving the immune mechanism, unspecified (principal); Z94.4 Liver transplant status; Z79.899 Other long term (current) drug therapy
CPT/HCPCS: 36415; 80053; 80195; 83735; 84100; 85025

== ENCOUNTER 2023-07-05 09:49 | Outpatient (REF) | payer MEDICARE, MEDICAID, SELFPAY ==
[2023-07-05 10:01] LABS: MANUAL DIFF FLAG NO
[2023-07-05 11:10] LABS: Basophils Percent Auto 0.2 % (0-2); Eosinophils Absolute Auto 0.1 X10*3/uL (0.0-0.4); Eosinophils Percent Auto 1.6 % (0-4); Hematocrit 41.3 % (42.0-52.0); Hemoglobin 13.8 g/dl (14.0-18.0); Imm Gran Abs Auto 0.02 X10*3/uL (0.00-0.03); Imm Gran Pct Auto 0.4 % (0.0-0.4); Lymphocytes Absolute Auto 1.4 X10*3/uL (1.2-4.9); Lymphocytes Percent Auto 26.2 % (20-40); Mean Corpuscular HGB Conc 33.4 g/dl (31.0-36.0); Mean Corpuscular Hemoglobin 28.9 pg (27.0-33.0); Mean Corpuscular Volume 86.6 fL (80.0-98.0); Monocytes Absolute Auto 0.5 X10*3/uL (0.1-1.2); Monocytes Percent Auto 9.1 % (2-11); Neutrophils Absolute Auto 3.4 x10*3/uL (2.0-8.3); Neutrophils Percent Auto 62.5 % (45-73); Platelet Count 135 X10*3/uL (160-400); Red Blood Count 4.77 X10*6/uL (4.60-5.80); Red Cell Distribution Width 12.9 % (11.0-16.0); White Blood Count 5.5 X10*3/uL (4.8-10.8)
[2023-07-05 11:29] LABS: Alanine Aminotransferase 21 U/L (0-40); Albumin Level 3.9 g/dL (3.5-5.0); Alkaline Phosphatase 109 U/L (39-117); Anion Gap 12 (12-20); Aspartate Amino Transferase 15 U/L (5-37); Bilirubin Total 0.4 mg/dL (0.0-1.0); Blood Urea Nitrogen 18 mg/dL (9-16); Calcium 8.8 mg/dL (8.4-10.2); Carbon Dioxide 24 mmol/L (22-29); Chloride 112 mmol/L (96-108); Estimated Glomerular Filt Rate 40; Glucose Random 162 mg/dL (60-115); Magnesium 2.1 mg/dL (1.6-2.6); Sodium 144 mmol/L (135-145); Total Protein 6.6 g/dL (6.5-8.0)
[2023-07-06 10:04] LABS: Sirolimus 2.4 ng/mL (3.0-18.0)
== END 2023-07-05 09:50 | disposition home or self-care (01) ==
LOC: HO.LABR 09:49
PROVIDERS: PCP Internal Medicine; Visit Provider Internal Medicine
DX: D89.9 Disorder involving the immune mechanism, unspecified (principal); Z94.4 Liver transplant status; Z79.899 Other long term (current) drug therapy
CPT/HCPCS: 36415; 80053; 80195; 83735; 85025

== ENCOUNTER 2023-09-27 09:24 | Outpatient (REF) | payer MEDICARE, MEDICAID, SELFPAY ==
[2023-09-27 09:47] LABS: MANUAL DIFF FLAG NO
[2023-09-27 10:20] LABS: Basophils Percent Auto 0.3 % (0-2); Eosinophils Absolute Auto 0.1 X10*3/uL (0.0-0.4); Hematocrit 39.6 % (42.0-52.0); Hemoglobin 13.8 g/dl (14.0-18.0); Imm Gran Abs Auto 0.03 X10*3/uL (0.00-0.03); Imm Gran Pct Auto 0.4 % (0.0-0.4); Lymphocytes Absolute Auto 1.3 X10*3/uL (1.2-4.9); Mean Corpuscular HGB Conc 34.8 g/dl (31.0-36.0); Mean Corpuscular Hemoglobin 29.8 pg (27.0-33.0); Mean Corpuscular Volume 85.5 fL (80.0-98.0); Mean Platelet Volume 11.1 fL (9.4-12.4); Monocytes Absolute Auto 0.5 X10*3/uL (0.1-1.2); Monocytes Percent Auto 6.5 % (2-11); Neutrophils Absolute Auto 5.1 x10*3/uL (2.0-8.3); Neutrophils Percent Auto 73.8 % (45-73); Platelet Count 145 X10*3/uL (160-400); Red Blood Count 4.63 X10*6/uL (4.60-5.80)
[2023-09-27 10:53] LABS: Alanine Aminotransferase 23 U/L (0-40); Alkaline Phosphatase 123 U/L (39-117); Anion Gap 16 (12-20); Aspartate Amino Transferase 16 U/L (5-37); Bilirubin Total 0.4 mg/dL (0.0-1.0); Blood Urea Nitrogen 18 mg/dL (9-16); Calcium 8.8 mg/dL (8.4-10.2); Carbon Dioxide 20 mmol/L (22-29); Chloride 110 mmol/L (96-108); Estimated Glomerular Filt Rate 43; Glucose Random 163 mg/dL (60-115); Magnesium 2.1 mg/dL (1.6-2.6); Potassium 3.8 mmol/L (3.3-5.1); Sodium 142 mmol/L (135-145); Total Protein 6.7 g/dL (6.5-8.0)
== END 2023-09-27 09:25 | disposition home or self-care (01) ==
LOC: HO.LAB 09:24
PROVIDERS: Visit Provider Internal Medicine
DX: Z94.4 Liver transplant status (principal); D89.9 Disorder involving the immune mechanism, unspecified
CPT/HCPCS: 36415; 80053; 80195; 83735; 85025

== ENCOUNTER 2024-01-10 09:19 | Outpatient (REF) | payer MEDICARE, MEDICAID, SELFPAY ==
[2024-01-10 09:38] LABS: MANUAL DIFF FLAG NO
[2024-01-10 09:53] LABS: Basophils Percent Auto 0.5 % (0-2); Eosinophils Absolute Auto 0.1 X10*3/uL (0.0-0.4); Eosinophils Percent Auto 1.8 % (0-4); Hemoglobin 13.5 g/dl (14.0-18.0); Imm Gran Abs Auto 0.02 X10*3/uL (0.00-0.03); Imm Gran Pct Auto 0.3 % (0.0-0.4); Lymphocytes Absolute Auto 1.3 X10*3/uL (1.2-4.9); Lymphocytes Percent Auto 21.1 % (20-40); Mean Corpuscular HGB Conc 34.6 g/dl (31.0-36.0); Mean Corpuscular Hemoglobin 29.3 pg (27.0-33.0); Mean Corpuscular Volume 84.8 fL (80.0-98.0); Mean Platelet Volume 11.1 fL (9.4-12.4); Monocytes Absolute Auto 0.4 X10*3/uL (0.1-1.2); Monocytes Percent Auto 6.9 % (2-11); Neutrophils Absolute Auto 4.3 x10*3/uL (2.0-8.3); Neutrophils Percent Auto 69.4 % (45-73); Platelet Count 129 X10*3/uL (160-400); Red Cell Distribution Width 12.7 % (11.0-16.0); White Blood Count 6.2 X10*3/uL (4.8-10.8)
[2024-01-10 10:21] LABS: Alanine Aminotransferase 17 U/L (0-40); Albumin Level 3.9 g/dL (3.5-5.0); Alkaline Phosphatase 120 U/L (39-117); Anion Gap 12 (12-20); Aspartate Amino Transferase 13 U/L (5-37); Bilirubin Total 0.4 mg/dL (0.0-1.0); Blood Urea Nitrogen 16 mg/dL (9-16); Calcium 8.7 mg/dL (8.4-10.2); Carbon Dioxide 24 mmol/L (22-29); Chloride 109 mmol/L (96-108); Estimated Glomerular Filt Rate 38; Glucose Random 251 mg/dL (60-115); Sodium 141 mmol/L (135-145); Total Protein 6.6 g/dL (6.5-8.0)
[2024-01-11 20:09] LABS: Sirolimus 2.2 ng/mL (3.0-18.0)
== END 2024-01-10 09:20 | disposition home or self-care (01) ==
LOC: HO.LABR 09:19
PROVIDERS: PCP Internal Medicine; Visit Provider Internal Medicine
DX: Z94.4 Liver transplant status (principal); Z79.899 Other long term (current) drug therapy
CPT/HCPCS: 36415; 80053; 80195; 83735; 85025

== ENCOUNTER 2024-04-15 11:22 | Outpatient (REF) | payer MEDICARE, MEDICAID, SELFPAY ==
[2024-04-15 11:59] LABS: MANUAL DIFF FLAG NO
[2024-04-15 12:29] LABS: Basophils Percent Auto 0.4 % (0-2); Eosinophils Absolute Auto 0.1 X10*3/uL (0.0-0.4); Hematocrit 40.3 % (42.0-52.0); Hemoglobin 13.7 g/dl (14.0-18.0); Imm Gran Abs Auto 0.02 X10*3/uL (0.00-0.03); Imm Gran Pct Auto 0.3 % (0.0-0.4); Lymphocytes Absolute Auto 1.3 X10*3/uL (1.2-4.9); Lymphocytes Percent Auto 18.9 % (20-40); Mean Corpuscular Hemoglobin 29.3 pg (27.0-33.0); Mean Corpuscular Volume 86.1 fL (80.0-98.0); Mean Platelet Volume 10.8 fL (9.4-12.4); Monocytes Absolute Auto 0.5 X10*3/uL (0.1-1.2); Monocytes Percent Auto 6.7 % (2-11); Neutrophils Absolute Auto 5.1 x10*3/uL (2.0-8.3); Neutrophils Percent Auto 72.7 % (45-73); Platelet Count 142 X10*3/uL (160-400); Red Blood Count 4.68 X10*6/uL (4.60-5.80); Red Cell Distribution Width 12.8 % (11.0-16.0)
[2024-04-15 12:52] LABS: Alanine Aminotransferase 23 U/L (0-40); Albumin Level 4.1 g/dL (3.5-5.0); Alkaline Phosphatase 136 U/L (39-117); Anion Gap 12 (12-20); Aspartate Amino Transferase 22 U/L (5-37); Bilirubin Total 0.4 mg/dL (0.0-1.0); Blood Urea Nitrogen 15 mg/dL (9-16); Calcium 9.1 mg/dL (8.4-10.2); Carbon Dioxide 24 mmol/L (22-29); Chloride 107 mmol/L (96-108); Estimated Glomerular Filt Rate 40; Glucose Random 177 mg/dL (60-115); Magnesium 2.1 mg/dL (1.6-2.6); Potassium 4.4 mmol/L (3.3-5.1); Sodium 139 mmol/L (135-145); Total Protein 6.6 g/dL (6.5-8.0)
[2024-04-16 15:43] LABS: Sirolimus 4.4 ng/mL (3.0-18.0)
== END 2024-04-15 11:23 | disposition home or self-care (01) ==
LOC: HO.LABR 11:22
PROVIDERS: Visit Provider Internal Medicine
DX: Z94.4 Liver transplant status (principal)
CPT/HCPCS: 36415; 80053; 80195; 83735; 85025

== ENCOUNTER 2024-06-20 09:09 | Outpatient (REF) | payer MEDICARE, MEDICAID, SELFPAY ==
[2024-06-20 09:22] LABS: MANUAL DIFF FLAG NO
[2024-06-20 09:30] LABS: Basophils Percent Auto 0.4 % (0-2); Eosinophils Absolute Auto 0.1 X10*3/uL (0.0-0.4); Eosinophils Percent Auto 2.3 % (0-4); Hematocrit 38.8 % (42.0-52.0); Hemoglobin 13.5 g/dl (14.0-18.0); Imm Gran Abs Auto 0.02 X10*3/uL (0.00-0.03); Imm Gran Pct Auto 0.4 % (0.0-0.4); Lymphocytes Absolute Auto 1.5 X10*3/uL (1.2-4.9); Lymphocytes Percent Auto 26.2 % (20-40); Mean Corpuscular HGB Conc 34.8 g/dl (31.0-36.0); Mean Corpuscular Volume 83.4 fL (80.0-98.0); Mean Platelet Volume 10.1 fL (9.4-12.4); Monocytes Absolute Auto 0.5 X10*3/uL (0.1-1.2); Monocytes Percent Auto 8.7 % (2-11); Neutrophils Absolute Auto 3.5 x10*3/uL (2.0-8.3); Platelet Count 130 X10*3/uL (160-400); Red Blood Count 4.65 X10*6/uL (4.60-5.80); Red Cell Distribution Width 12.6 % (11.0-16.0); White Blood Count 5.6 X10*3/uL (4.8-10.8)
--- OUTSIDE RECORDS SUMMARY | 2024-06-20 09:37 | XMS_ITS | Encounter Summary ---
Author Organization [facility] Address [address] [place] [address] Care Team Providers Care Filer Finish Name Role Phone Nikhil Parisi Primary Care Provider [phone] Encounter Details Date Type Department Care Team (Late st Contact Info) Description 05/22/2024 Mindset Studiohart Message [facility] [address] [place] [address] Mychart, Generic Provider [address] [place], [place] [id number] Important medication hold for procedure with Dr. Francis on 05/28/2024 Social History Tobacco Use Types Packs/Day Years Used Date Smoking Tobacco: Never Smokeless Tobacco: Never Comments:: Alcohol Use Standard Drinks/Week Comments No 0 (1 standard drink = 0.6 oz pur e alcohol) Sex and Gender Information Value Date Recorded Sex Assigned at Male 2021 11:20 AM EDT Legal Sex Male 6:55 AM EDT Gender Identity Male 2021 11:20 AM EDT Sexual Orientation Choose not to disclose 2020 11:20 AM EDT Occupation Industry Job Start Date Job End Date On disability Not on file Not on file Not on file documented as of this encounter Plan of Treatment Upcoming Encounters Date Type Department Care Team (Late st Contact Info) Description 06/26/2024 10:30 AM EST Follow-Up [facility] [address] [place] [address] Herman Francis MD [address] [place] [address] 05/05/2025 8:30 AM EST Office Visit [facility] [address] [place], [place] [phone] Car Park Attendant: Sandra Schaffer, Abraham Ellison MD [address], [place] [phone] documented as of this encounter Visit Diagnoses Not on filedocumented in this encounter Additional Health Concerns 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
--- OUTSIDE RECORDS SUMMARY | 2024-06-20 09:37 | XMS_ITS | Encounter Summary ---
Author Organization [facility] Address [address] [place] [address] Care Team Providers Care Brass Chaser Name Role Phone Nikhil Parisi Primary Care Provider [phone] Reason for Visit * Reason Onset Date Comments Transportation 05/22/2024 Encounter Details Date Type Department Care Team (Late st Contact Info) Description 05/22/2024 Documentation [facility] Transplant Department [address] [place] [id number] Adia Elizondo LICSW [address] [place] [address] Trans[address] [address] Transportation Social History Tobacco Use Types Packs/Day Years [...] on file documented as of this encounter Progress Notes * ASTON Matute - 05/22/2024 2:47 PM EST Per patient request, transplant SW submitted a PT-1 for MH rides to [facility]. See summary below: PT-1 Request [id number] Pending . For pending submissions, please check the portal periodically for updates. An email notification has been sent to the provider on behalf of whom the PT-1 request was submitted. To update the email address, please visit your profile page. Below are the details of your pending request. Trip Summary Member Home: [id number], [address] [facility] [id number] Treating Location: [id number] [address]p [id number] Treatment Details Treating facility within member's locality No Medical treatment type: [id number] - Diseases of the digestive system Duration: 12 Month(s) Frequency: 6 visit(s) per Month Transportation Details Member will require a wheelchair van No Member will be accompanied by an escort Yes Member will require a service animal No For any assistance, please contact [employer] at (TTY: ). documented in this encounter Plan of Treatment Upcoming Encounters Date Type Department Care Team (Late st Contact Info) Description 06/26/2024 10:30 AM EST Follow-Up [facility] [address] [place] [id number] Herman Francis MD [address] [place] [phone] 05/05/2025 8:30 AM EST Office Visit [facility] [address] [place] [address] Paint Roller Winder: Abraham Amador MD [address] [place] [phone] documented as of this encounter Visit Diagnoses Not on filedocumented in this encounter Additional Health Concerns Infection Onset Date Last Indicated Resolved Time 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
--- OUTSIDE RECORDS SUMMARY | 2024-06-20 09:37 | XMS_ITS | Clinical Summary ---
Author Organization [facility] Address [address] [place] [address] Care Team Providers Care Test Engine Evaluator Name Role Phone Nikhil Parisi Primary Care Provider [phone] Allergies No known active allergies Medications mycophenolate mofetil (CELLCEPT) 250 mg capsuleIndicati ons:Liver replaced by transplant (HCC) Take 1 capsule (250 mg total) by mouth 2 times a day. 60 capsule 11 05/23/2024 7:41 AM EST 4 06/30/19 25 Active multivitamin (THERAGRAN) tablet TAKE ONE TABLET BY MOUTH DAILY 90 tablet 3 05/13/2024 9:13 AM EST 4 08/12/19 25 Active dulaglutide (Trulicity) 1.5 mg/0.5 mL injection doseIndications :Post-transplan t diabetes mellitus (CMS/HCC) (HCC) Inject 0.5 mL (1.5 mg total) under the skin once a week. 2 mL 11 04/28/2024 9:41 AM EST 4 01/14/20 25 Active tamsulosin (FLOMAX) 0.4 mg capsule Take 1 capsule (0.4 mg total) by mouth once a day. 30 capsule 5 06/10/2024 1:22 PM EST 4 01/25/20 25 Active amLODIPine (NORVASC) 10 mg tablet Take 1 tablet (10 mg total) by mouth daily. 90 tablet 3 03/26/2024 9:16 PM EST 4 01/25/20 25 Active metoprolol tartrate (LOPRESSOR) 25 mg tabletIndicatio ns:History of liver transplant (CMS/HCC) (HCC) TAKE ONE TABLET BY MOUTH TWO TIMES A DAY 60 tablet 11 06/10/2024 1:22 PM EST 4 01/25/20 25 Active busPIRone (BUSPAR) 15 mg tablet Take 1 tablet (15 mg total) by mouth every morning AND 2 tablets (30 mg total) every evening. 90 tablet 5 06/10/2024 1:22 PM EST 4 Active Freestyle Lite test stripsIndicatio ns:Post-transpl ant diabetes mellitus (CMS/HCC) (HCC) Use to test blood sugar once daily. 100 strip 3 05/26/2024 7:47 AM EST 4 Active blood glucose diagnostic lancet 28 gaugeIndication s:Post-transpla nt diabetes mellitus (CMS/HCC) (HCC) Use one daily 200 each 3 04/11/2024 4:08 AM EST 4 04/09/20 25 Active atorvastatin (LIPITOR) 10 mg tablet Take 1 tablet (10 mg total) by mouth once a day. 30 tablet 11 06/10/2024 1:22 PM EST 4 04/11/20 25 Active cyanocobalamin (vitamin B-12) 1,000 mcg tablet Take 1 tablet (1,000 mcg total) by mouth daily. 90 tablet 3 04/28/2024 9:41 AM EST 4 Active mirtazapine (REMERON) 15 mg tabletIndicatio ns:Other depression Take 1 tablet by mouth at bedtime 30 tablet 11 05/23/2024 7:41 AM EST 4 Active terazosin (HYTRIN) 1 mg capsule TAKE 1 CAPSULE BY MOUTH AT BEDTIME NIGHTLY. 30 capsule 11 4 05/09/20 25 Active sirolimus (RAPAMUNE) 0.5 mg tabletIndicatio ns:History of liver transplant (CMS/HCC) (HCC) Take 1 tablet (0.5 mg total) by mouth daily. 30 tablet 11 06/10/2024 1:22 PM EST 5 06/09/19 26 Active buPROPion SR (WELLBUTRIN SR) 100 mg tablet Take 1 tablet by mouth daily for 1 week then increase to 1 tablet twice daily 60 tablet 2 08/09/2018 3:04 PM EDT 9 10/01/19 19 Discontinu ed(Side effects) Active Problems Problem Noted Date Diagnosed Date Type 2 diabetes mellitus wit h stage 3 chronic kidney disease, without long-term current use of insulin, unspecified whether stage 3a or 3b CKD 05/05/2024 Dyslipidemia 08/01/2020 Age-related nuclear cataract of both eyes 2018 Refractive error 05/01/2019 Overview (05/01/2019): spec Rx Mixed hyperlipidemia 01/27/2019 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/2017 B12 deficiency 07/17/2017 Subclinical hypothyroidism 04/23/2015 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 Generalized anxiety disorder 02/27/2014 Immunosuppression 12/26/2013 History of liver transplant 04/03/2013 Social anxiety disorder 03/06/2013 Depression 03/06/2013 Resolved Problems Problem Noted Date Diagnosed Date Resolved Date Chronic hepatitis C virus infection 10/29/2013 07/17/2019 Encounters Date Type Department Care Team Description 06/06/2024 Refill [facility] [address] [place] [address] Herman Francis MD History of liver transplant (CMS/HCC) (HCC) 05/28/2024 2:45 PM EST - 05/28/2024 3:25 PM EST Surgery [facility] [address] [place] [address] Herman Francis MD COLONOSCOPY SCREENING, LOW RISK WITH POSSIBLE MODERATE SEDATION [G0121] 05/28/2024 2:03 PM EST - 05/28/2024 4:00 PM EST Hospital Encounter [facility] [address] [place] [address] Herman Francis MD Discharge Disposition: Home or Self Care (01) 05/27/2024 Orders Only [facility] Transplant Department [address] [place] [phone] Qing Christianson, CHAPIN Liver replaced by transplant (HCC) (Primary Dx); Encounter for immunosuppression management after liver transplant (HCC) 05/22/2024 Documentation [facility] [address] [place] [phone] Kemar-Adia Terrell, MANAGER DOCUMENTATION Transportation 05/22/2024 myChart Message [facility] [address] [place] [phone] Mychart, Generic Provider Important medication hold for procedure with Dr. Francis on 05/28/2024 05/09/2024 Refill [facility] [address] [place] [address] Herman Francis MD Other depression 05/05/2024 8:30 AM EST Office Visit [facility] [address] [place] [phone] Knot Tier: Edelmira Martinez NP Post-transplant diabetes mellitus (CMS/HCC) (HCC) (Primary Dx); Subclinical hypothyroidism; B12 deficiency; Type 2 diabetes mellitus without complication, without long-term current use of insulin (CMS/HCC) (HCC); Type 2 diabetes mellitus with stage 3 chronic kidney disease, without long-term current use of insulin, unspecified whether stage 3a or 3b CKD (HCC); 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, without long-term current use of insulin (HCC) 04/23/2024 Refill [facility] [address] [place] [address] Leiva, Mitzi 04/21/2024 Abstract [facility] [address] [place] [phone] Herman Francis MD 04/16/2024 myChart Message [facility] [address] [place] [phone] Knot Tier: Nicole Perry LPN Glucose Testing 04/15/2024 Telephone [facility] [address] [place] [phone] Knot Tier: Abraham Amador MD 04/11/2024 Refill [facility] [address] [place] [address] Herman Francis MD 04/09/2024 Prep for Case [facility] [address] [place] [phone] Knot Tier: Herman Xie MD 04/09/2024 Refill [facility] [address] [place] [phone] Madelyn Leivaellen Post-transplant diabetes mellitus (CMS/HCC) ([facility]) 04/07/2024 Orders Only [facility] [address] [place] [phone] Knot Tier: Edelmira Martinez NP 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, with long-term current use of insulin (HCC) 03/21/2024 Refill [facility] [address] [place] [phone] Adelfo Garzon MD from Last 3 Months Immunizations Name Administration Dates Next Due Covid-19, Pfizer, mRNA, [place] valent, PF 30 mcg/0.3 mL dose (for ages 12 and older) 09/28/2020,09/07/2020 Family History Medical History Relation Name Comments Alcohol abuse Father Cirrhosis Father Paternal histor y of Cirrhosis Diabetes type II Father's Brother COPD Mother Relation Name Status Comments Father Father's Brother Mother Social History Tobacco Use Types Packs/Day Years Used Date Smoking Tobacco: Never Smokeless Tobacco: Never Tobacco Cessation:Counseling Given: Not Answered Comments:: Alcohol Use Standard Drinks/Week Comments No 0 (1 standard drink = 0.6 oz pur e alcohol) 2010 Sex and Gender Information Value Date Recorded Sex Assigned at Male 2021 11:20 AM EDT Legal Sex Male 6:55 AM EDT Gender Identity Male 2021 11:20 AM EDT Sexual Orientation Choose not to disclose 2020 11:20 AM EDT Occupation Industry Job Start Date Job End Date On disability Not on file Not on file Not on file Last Filed Vital Signs Vital Sign Reading Time Taken Comments Blood Pressure 117/64 05/28/2024 4:11 PM EST Pulse 69 05/28/2024 4:11 PM EST Temperature 37.1 ??C (98.8 ??F) 05/28/2024 2:51 PM ES T Respiratory Rate 15 05/28/2024 4:11 PM EST Oxygen Saturation 95% 05/28/2024 4:11 PM EST Inhaled Oxygen Concentration - - Weight 98.9 kg (218 lb) 05/28/2024 2:51 PM EST Height 185.4 cm (6' 1 ) 05/28/2024 2:51 PM EST Body Mass Index 28.76 05/28/2024 2:51 PM EST Plan of Treatment Upcoming Encounters Date Type Department Care Team (Late st Contact Info) Description 06/26/2024 10:30 AM EST Follow-Up [facility] [address] [place] [phone] Herman Francis MD [address] [place] [phone] 05/05/2025 8:30 AM EST Office Visit [facility] [address] [place] [address] Knot Tier: Sandra Schaffer, Abraham Ellison MD [address] [place] [address] Health Maintenance Due Date Last Done Comments Cologuard 1960 FOBT / Fit Test 1960 Sigmoidoscopy 1960 Pneumococcal Vaccine: Pediat loan (0-5 Years) and At-Risk Patients (6-64 Years) (1 of 2 - PCV) 1967 Zoster Vaccines (1 of 2) 02/22/1980 DTaP,Tdap,and Td Vaccines (1 - Tdap) 1983 25 Hydroxy / Vitamin D 04/03/2014 04/03/2013 PTH 04/03/2014 04/03/2013 Phosphorus 04/03/2014 04/03/2013, 02/19, 03/06/2013, Additional history exists Hepatitis B Vaccines (1 of 3 - Risk 3-dose series) 2021 RSV Vaccine (60+ years old a nd patients) (1 - Risk 60-74 years 1-dose series) 2021 Basic Metabolic Panel 06/29/2023 12/27/2022 , 10/10/2021, 10/11/2020, Additional history exists Ophthalmology Exam 10/24/2023 10/23/2022, 0 10/23/2022, 10/23/2022, Additional history exists COVID-19 Vaccine (4 - 2023-2 5 season) 2024 04/01/2021, 09/28/2020, 09/07/2020 Influenza Vaccine (#1) 2024 Alcohol/Substance Use Screening 05/21/2024 Depression Evaluation 05/21/2024 Social Drivers of Health Diane ual Screening 05/21/2024 Hemoglobin A1C 11/03/2024 05/05/2024, 12/19, 05/03/2023, Additional history exists Urine Microalbumin 01/06/2025 01/07/2024, 0 12/19/2022, 10/10/2021, Additional history exists Hemoglobin 04/15/2025 04/15/2024, 12/20, 09/27/2023, Additional history exists Colon Cancer Screening 05/28/2034 Colonoscopy 05/28/2034 05/28/2024, 12/2024, 08/22/2023, Additional history exists Tobacco Screening 05/21/2042 05/28/2024 HIV Screening Completed 01/07/2013, 12/06/2012 Hepatitis C Screening Completed 06/08/2015 , 05/10/2015, 03/15/2015, Additional history exists Statin Therapy Completed 04/11/2024 Procedures * Due to [place] state law, this organization might not be sharing negative HIV tests. Procedure Name Priority Date/Time Associated Diagnosis Comments NH COLON CA SCRN NOT HI RSK IND 05/28/2024 3:08 PM EST Colon cancer screening POCT GLUCOSE Routine 05/28/2024 3:05 PM EST COLONOSCOPY 05/28/2024 T4, FREE Routine 05/05/2024 9:33 AM EST Subclinical hypothyroidism LIPID PANEL W/REFLEX TO DIRECT LDL Routine 05/05/2024 9:33 AM EST Type 2 diabetes mellitus without complication, without long-term current use of insulin (CMS/HCC) (HCC) VITAMIN B12 Routine 05/05/2024 9:33 AM EST B12 deficiency TSH REFLEX FREE T4 Routine 05/05/2024 9: 33 AM EST Subclinical hypothyroidism POCT GLUCOSE Routine 05/05/2024 8:55 AM EST POCT GLYCOSYLATED HEMOGLOBIN (HGB A1C) Routine 05/05/2024 8:49 AM EST LIVER POST EXTERNAL PANEL Routine 04/15/2024 11:57 AM EST MICROALBUMIN, RANDOM URINE WITH CREATININE Routine 01/07/2024 8:57 AM EDT Post-transplant diabetes mellitus (CMS/HCC) (HCC) COMPREHENSIVE METABOLIC PANEL, OUTSIDE LAB Routine 12/27/2022 9:59 AM EDT HCV PCR QUAL, OUTSIDE LAB Routine 06/08/2015 12:01 AM EST VITAMIN D, 25-HYDROXY, TOTAL, IMMUNOASSAY STAT 04/03/2013 9:11 AM EST PTH, INTACT (WITHOUT CALCIUM) STAT 04/03/2013 9:11 AM EST PHOSPHORUS STAT 04/03/2013 9:11 AM EST HIV-1/2 ANTIGEN/ANTIBODIES 4TH GENERATION W/REFLEX Routine 01/07/2013 4:27 AM EDT from Last 3 Months or Most Recently Relevant to Health Maintenance Results * Due to [place] state law, this organization might not be sharing negative HIV tests. * (ABNORMAL) POCT Glucose, interfaced (05/28/2024 3:05 PM EST) Only the most recent of2 resultswithin the time period is included. [facility] Signature Glucose, POCT 129(H) 70 - 99 mg/dL 05/28/2024 3:09 PM EST [facility] Comment: The desk top publisher has not determined the efficacy of this test in Critically ill patients. ??[facility] defines Critically ill patients for the purpose of blood glucose monitoring (BGM) by glucometer, as patients meeting one or more of the following criteria: Hypotension- non-ICU patients (systolic blood pressure Less than 90 mmHg) due to shock Hypotension -ICU patients ??(Mean Arterial Pressure (MAP) <60 mmHg or systolic blood pressure < 90 mmHg due to shock Patients receiving Vasopressors (phenylephrine, vasopressin or norepinephrine) Anasarca In all locations, BGM test results should not be relied upon in the above situations, unless these results confirmed with lab-based glucose values. Blood 05/28/2024 3:05 PM EST 05/28/2024 3:08 PM EST us Herman Francis MD LAB POCT ORDERABLES - DEVICE Final Result [facility] [address] [place] [address], [place] * COLONOSCOPY (05/28/2024) Narrative Procedure Note Herman Francis MD - 05/28/2024 2:56 PM EST [facility] Gastroenterology Patient Name: Nhan Rawls Procedure Date: 05/28/2024 2:56 PM Date of : 1960 Admit Type: Outpatient Age: 64 Room: [place] [address] Gender: Male Note Status: Finalized Attending MD: Herman Francis MD Procedure: Colonoscopy Indications: Screening for colorectal malignant neoplasm Comorbidities Providers: Herman Francis MD Referring MD: Requesting Provider: Medicines: Midazolam 5 mg IV, Fentanyl 125 micrograms IV Complications: No immediate complications. Estimated Blood Loss: Estimated blood loss: none. Procedure: Pre-Anesthesia Assessment: - Prior to the procedure, a History and Physicalwas performed, and patient medications and allergieswere reviewed. The patient is competent. The risks and benefits of the procedure and the sedation optionsand risks were discussed with the patient. Allquestions were answered and informed consent was obtained. Patient identification and proposed procedure were verified by the physician and the nurse in the procedure room. Mental Status Examination: alertand oriented. Airway Examination: normal oropharyngeal airway and neck mobility. Respiratory Examination: clear to auscultation. CV Examination: normal. Prophylactic Antibiotics: The patient does notrequire prophylactic antibiotics. Prior Anticoagulants: The patient has taken no anticoagulant or antiplatelet agents. ASA Grade Assessment: II - A patient withmild systemic disease. After reviewing the risks and benefits, the patient was deemed in satisfactory condition to undergo the procedure. The anesthesia plan was to use moderate sedation / analgesia (conscious sedation). Immediately prior to administration of medications, the patient was re-assessed for adequacy to receive sedatives. The heart rate, respiratory rate, oxygen saturations, blood pressure, adequacy of pulmonary ventilation,and response to care were monitored throughout the procedure. The physical status of the patient was re-assessed after the procedure. After I obtained informed consent, the scope was passed under direct vision. Throughout theprocedure, the patient's blood pressure, pulse, and oxygen saturations were monitored continuously. The Colonoscope was introduced through the anus and advanced to the cecum, identified by appendiceal orifice and ileocecal valve. The colonoscopy was performed without difficulty. The patient tolerated the procedure well. The quality of the bowel preparation was good. The quality of the bowel preparation was evaluated using the BBPS (BostonBowel Preparation Scale) with scores of: Right Colon = 3, Transverse Colon = 3 and Left Colon = 3 (entiremucosa seen well with no residual staining, smallfragments of stool or opaque liquid). The total BBPS score equals 9. The bowel preparation used was GoLYTELYvia split dose instruction. Findings: Hemorrhoids were found on perianal exam. Internal hemorrhoids were found during retroflexion. The hemorrhoids were mild. The exam was otherwise without abnormality. Impression: - Hemorrhoids found on perianal exam. - Internal hemorrhoids. - The examination was otherwise normal. - No specimens collected. Recommendation: - Discharge patient to home (ambulatory). - Repeat colonoscopy in 10 years for screening purposes. - Return to referring physician. Herman Francis MD 05/28/2024 3:36:23 PM This report has been signed electronically. Number of Addenda: 0 Note Initiated On: 05/28/2024 2:56 PM us Herman Francis MD PROVATION PROCEDURES Final Re sult * (ABNORMAL) TSH Reflex Free T4 (05/05/2024 9:33 AM EST) TSH 3.930(H) 0.280 - 3.890 uIU/mL 05/05/2024 11:49 AM EST [facility] Blood Structure of peripheral vein / Unknown Venipuncture / Unknown 05/05/2024 9:33 AM EST 05/05/2024 11:04 AM EST us Edelmira Shah [facility] BLOOD ORDERABLES Final Res ult [facility] [address] [place] [address], * (ABNORMAL) Lipid Panel w/Reflex to Direct LDL (05/05/2024 9:33 AM EST) Cholesterol 177 <=199 mg/dL 05/05/2024 11:49 AM EST [facility] Triglycerides 364(H) <=149 mg/dL 05/05/2024 11:49 AM EST [facility] Cholesterol, HDL 33(L) 40 - 59 mg/dL 05/05/2024 11:49 AM EST [facility] Cholesterol, Non-HDL 144 mg/dL 05/05/2024 11:49 AM EST [facility] LDL Cholesterol 71 <100 mg/dL 05/05/2024 11:49 AM EST [facility] VLDL 72.8 mg/dL 05/05/2024 11:49 AM EST [facility] Cholesterol/HDL Ratio 5.4(H) <5.0 05/05/2024 11:49 AM EST [facility] Blood Structure of peripheral vein / Unknown Venipuncture / Unknown 05/05/2024 9:33 AM EST 05/05/2024 11:04 AM EST Narrative [facility] - 05/05/2024 11:49 AM EST Adult Treatment Panel III Guidelines of NCEP 2000 ? Category: ? Total Cholesterol (mg/dL) ?Desirable ?<200 ?Borderline High ? 200-239 ?High ?>=240 ? Category: ? LDL Cholesterol (mg/dL) ?Optimal ?<100 ?Near Optimal/Above Optimal ?100-129 ?Borderline High ? 130-159 ?High ?160-189 ?Very High ? >=190 ? Category: ? HDL Cholesterol (mg/dL) ?Low ?<40 ?High ?>=60 NCEP's Expert Panel on Blood Cholesterol in Children and Adolescents ? Category: ? Total Cholesterol (mg/dL) ?Desirable ?<170 ?Borderline High ? 170-199 ?High ?>=200 ? Category: ? LDL Cholesterol (mg/dL) ?Desirable ?<110 ?Borderline High ? 110-129 ?High ?>=130 us Edelmira H Sidhom [facility] BLOOD ORDERABLES Final Res ult [facility] [address] [place] [address], * T4, Free (05/05/2024 9:33 AM EST) Free T4 1.18 0.93 - 1.70 ng/dL 05/05/2024 12:42 PM EST [facility] Comment: Females: (ng/dL) First Trimester ? 0.95-1.58 ng/dL Second Trimester ?0.76-1.24 ng/dL Third Trimester ? 0.70-1.25 ng/dL Dietary supplements containing biotin may interfere in assays and may skew analyte results to be falsely high. ?? For patients receiving the recommended daily doses of biotin, draw samples at least 8 hours following the last biotin supplementation. ?? For patients on edith-doses of biotin supplements, draw samples at least 72 hours following the last biotin supplementation. Blood Structure of peripheral vein / Unknown Venipuncture / Unknown 05/05/2024 9:33 AM EST 05/05/2024 11:04 AM EST [facility] LAB BLOOD ORDERABLES Final Res ult Performing Organization Address City/[facility]/ZIP Co de Phone Number [facility] [address] [place] [address], * Vitamin B12 (05/05/2024 9:33 AM EST) Vitamin B12 880 232 - 1,245 pg/mL 05/05/2024 11:49 AM EST [facility] Blood Structure of peripheral vein / Unknown Venipuncture / Unknown 05/05/2024 9:33 AM EST 05/05/2024 11:04 AM EST [facility] LAB BLOOD ORDERABLES Final Res ult Performing Organization Address City/[facility]/ZIP Co de Phone Number [facility] [address] [place] [address] * (ABNORMAL) POCT Glycosylated Hemoglobin (HGB A1C), interfaced (05/05/2024 8:49 AM EST) Hemoglobin A1C, POCT 6.2(H) <=5.6 % 05/05/2024 9:03 AM EST [facility] Comment: A1C Recommendation for Non- Adults with Diabetes: <7.0% ADA 2011 Standards of Medical Care in Diabetes Blood 05/05/2024 8:49 AM EST 05/05/2024 9:03 AM EST us Edelmira Shah [facility] POCT ORDERABLES - DEVICE F inal Result Performing Organization Address City/[facility]/ZIP Co de Phone Number [facility] [address] [place] [address], [place] * LIVER POST EXTERNAL PANEL (04/15/2024 11:57 AM EST) Sodium 139 mmol/L [facility] Potassium 4.4 [facility] Chloride 107 [facility] Carbon Dioxide 24 [facility] Glucose 177 [facility] BUN 15 mg/dL [facility] Creatinine 1.72 mg/dL [facility] Calcium 9.1 mg/dL [facility] Total Protein 6.6 g/dL [facility] Albumin 4.1 g/dL [facility] Bilirubin, Total 0.4 mg/dL [facility] Alkaline Phosphatase 136 U/L [facility] AST 22 U/L [facility] ALT 23 U/L [facility] Magnesium 2.10 mg/dL [facility] Hgb 13.7 [facility] Hematocrit 40.3 % [facility] Platelets 142 10*3/uL [facility] 04/15/2024 11:5 7 AM EST us Herman Francis MD LAB BLOOD ORDERABLES Final Re sult Performing Organization Address City/[facility]/ZIP Co de Phone Number [facility] [address] [place] [address] * Microalbumin, Random Urine with Creatinine (01/07/2024 8:57 AM EDT) Microalbumin, Urine 2.9 mg/dL 01/07/2024 10:08 AM EDT [facility] Creatinine, Urine 211 22 - 328 mg/dL 01/07/2024 10:08 AM EDT [facility] Microalb/Creat Ratio, Random Urine 13.7 <30.0 mcg/mgCr 01/07/2024 10:08 AM EDT [facility] Comment: Microalbumin Reference Range: Normal ? <30 mcg/mg Creatinine Microalbuminuria ? 30-300 mcg/mg Creatinine Clinical Albuminuria >300 mcg/mg Creatinine Reference: ADA Guideline. Diabetes Care. 2004;27 (suppl 1) Urine Voided urine specimen / Unknown Non-Blood Collection / Unknown 01/07/2024 8:57 AM EDT 01/07/2024 9:29 AM EDT us Abraham Schaffer MD LAB URINE ORDERABLES Final R esult [facility] [address] [place] [address], * Comprehensive Metabolic Panel, Outside Lab (12/27/2022 9:59 AM EDT) Sodium 143 mmol/L [facility] [facility] Potassium 4.8 [facility] Chloride 108 [facility] Carbon Dioxide 26 [facility] Glucose 184 [facility] BUN 17 mg/dL [facility] Creatinine 1.95 mg/dL [facility] Calcium 9.5 mg/dL [facility] Total Protein 7.1 g/dL [facility] Albumin 4.1 g/dL [facility] Bilirubin, Total 0.5 mg/dL [facility] Alkaline Phosphatase 125 U/L [facility] AST 14 U/L [facility] ALT 17 U/L [facility] Blood Structure of peripheral vein / Unknown 12/27/2022 9:59 AM EDT us Herman Francis MD LAB BLOOD ORDERABLES Edited R esult - Final [facility] [address] [place] [address] * HCV PCR QUAL, OUTSIDE LAB (06/08/2015 12:01 AM EST) HCV PCR Qual Not Detected [facility] 06/08/2015 12:0 1 AM EST us Historical Conversion Provider LAB BLOOD ORDERAB LES Final Result [facility] [address] [place], [place] [phone] * Vitamin D, 25-Hydroxy, Total, Immunoassay (04/03/2013 9:11 AM EST) Vitamin D 25 Oh 33 30 - 100 ng/mL [facility] Comment: Vitamin D Status 25-OH Vitamin D Deficiency: <10 ng/mL Insufficiency: 10-29 ng/mL Sufficiency: 30-100 ng/mL Toxicity: >100 ng/mL 04/03/2013 9:11 AM EST 04/03/2013 9:43 AM EST us Blaine Nava MD LAB BLOOD ORDERABLES Final Result Performing Organization Address City/[facility]/ZIP Co de Phone Number [facility] [address] [place] [address], [place] * Phosphorus (04/03/2013 9:11 AM EST) Phosphorus Blood 3.6 2.5 - 4.5 mg/dL [facility] 04/03/2013 9:11 AM EST 04/03/2013 9:39 AM EST us Blaine Nava MD LAB BLOOD ORDERABLES Final Result [facility] [address] * PTH, Intact (without Calcium) (04/03/2013 9:11 AM EST) Parathyroid Intact 24 12 - 65 pg/mL [facility] 04/03/2013 9:11 AM EST 04/03/2013 9:43 AM EST us Blaine Nava MD LAB BLOOD ORDERABLES Final Result [facility] [address] * HIV-1/2 Antigen/Antibodies 4th Generation w/Reflex (01/07/2013 4:27 AM EDT) HIV 1,2 Ab/Ag Stat NEGATIVE NEGATIVE [facility] 01/07/2013 4:27 AM EDT 01/07/2013 8:30 AM EDT us Cedric Lopez MD LAB BLOOD ORDERABLES Final Re sult [facility] [address] [place] [address] from Last 3 Months or Most Recently Relevant to Health Maintenance Additional Health Concerns Infection Onset 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 Insurance MEDICARE [facility] Advance Directives Documents on File Type Date Recorded Patient Specialty Molder Expl [facility] Health Care Proxy 12/06/2012 12:00 AM 11/18 * Full Code (Latest Code Status on File) Date Activated Date Inactivated Comments 05/28/2024 3:42 PM 06/02/2024 10:22 AM * Full Code Date Activated Date Inactivated Comments 08/22/2023 10:17 AM 08/22/2023 4:27 PM Care Teams Test Engine Evaluator Relationship Specialty Start Date End Date Nikhil Parisi [address] [place] [address] [place] [address] PCP - General 12/07/16
--- OUTSIDE RECORDS SUMMARY | 2024-06-20 09:37 | XMS_ITS ---
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 History Noted Survival Infection Treatment Organism Resolved 10/29/2013 309 days Chronic hepatitis C virus infection 07/17/2019 Donor Information Organ ABO Source Meets Risk Criteria HLA Match Mismatches Cross Match Liver Transplanted A DBD No A: B: DR: Liver Donor Serology Results Anti-CMV CMV IgG: Positive EBV IgG EBV VCA IgG: Positive Anti-HBcAb HBC Total: Negative HBsAg HBsAg: Negative HBV DNA No results on file Anti-HCV HCV: Negative Anti-HIV I/II HIV-1: Negative Anti-HTLV I/II HTLV: Not Done RPR/VDRL RPR: Negative EBV IgM EBV VCA IgM: Negative HBsAb HBsAb: Not Done EBNA No results on file HBC Total HBC Total: Negative SARS CoV-2 No results on file Care Team Name Role Phone Fax Email Qing Christianson RN Liver Coordinator N/A N/A N/A Herman Francis MD Cutting Pressman [phone] [email or web address] Nikhil Parisi Referring Physician [phone] N/A Events Post-Transplant Pre-Transplant Admitted: 12/05/2012 Referred: 11/18/2012 Transplanted: 12/24/2012 Evaluation began: 3 Discharged: 01/10/2013 Committee: 12/06/2012 Center waitlisted: 3 Appointments (05/20/2024 - 07/18/2024) When With Visit Type Description 06/26/2024 Transplant - Alfredo Francis Follow Up
--- OUTSIDE RECORDS SUMMARY | 2024-06-20 09:37 | XMS_ITS | Encounter Summary ---
Author Organization [facility] Address [address] [place] [address] Care Team Providers Care Contour Sander Name Role Phone Nikhil Pariis Primary Care Provider [phone] Encounter Details Date Type Department Care Team (Latest Contact Info) Description 05/27/2024 Orders Only [facility] Transplant Department [address] [place] [address] Qing Christianson RN Liver replaced by transplant (HCC) (Primary Dx); Encounter for immunosuppression management after liver transplant (HCC) Social History Tobacco Use Types Packs/Day Years [...] Info) Description 06/26/2024 10:30 AM EST Follow-Up [facility] Liver Transplant Services [address] [place] [address] Herman Francis MD [address] [place] [address] 05/05/2025 8:30 AM EST Office Visit [facility] [address] [place] [address] Msws: Sandra Schaffer, Abraham Ellison MD [address] [place] [address] Scheduled Orders Name Type Priority Associated Diagnoses Orde r Schedule CBC Auto Differential Lab Routine Liver replaced by transplant (HCC) Every 12 Weeks for 22 Occurrences starting 05/27/2024 until 11/23/2024 Magnesium Lab Routine Liver replaced by transplant (HCC) Every 12 Weeks for 22 Occurrences starting 05/27/2024 until 11/23/2024 Sirolimus level Lab Routine Liver replaced by transplant (HCC) Encounter for immunosuppression management after liver transplant (HCC) Every 12 Weeks for 22 Occurrences starting 05/27/2024 until 11/23/2024 Comprehensive Metabolic Panel Lab Routine Liver replaced by transplant (HCC) Every 12 Weeks for 22 Occurrences starting 05/27/2024 until 11/23/2024 CBC Auto Differential Lab Routine Liver replaced by transplant (HCC) Expected: 05/27/2024, Expires: 05/27/2025 Magnesium Lab Routine Liver replaced by transplant (HCC) Expected: 05/27/2024, Expires: 05/27/2025 Sirolimus level Lab Routine Liver replaced by transplant (HCC) Encounter for immunosuppression management after liver transplant (HCC) Expected: 05/27/2024, Expires: 05/27/2025 Comprehensive Metabolic Panel Lab Routine Liver replaced by transplant (HCC) Expected: 05/27/2024, Expires: 05/27/2025 documented as of this encounter Visit Diagnoses Diagnosis Liver replaced by transplant (HCC)- Primary Liver replaced by transplant Encounter for immunosuppression management after liver transplant (HCC) documented in this encounter Additional Health Concerns Infection Onset Date Last Indicated 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
--- OUTSIDE RECORDS SUMMARY | 2024-06-20 09:37 | XMS_ITS | Referral Summary ---
Author Organization [facility] Address [address] [place] [address] Care Team Providers Care Food Adviser Name Role Phone Nikhil Parisi Primary Care Provider [phone] Encounters Date Type Department Care Team Description 06/06/2024 Refill [facility] Liver Transplant Services [address] [place] [address] Herman Francis MD History of liver transplant (CMS/HCC) (HCC) 05/28/2024 2:45 PM EST - 05/28/2024 3:25 PM EST Surgery [facility] Endoscopy [address] [place] [address] Herman Francis MD COLONOSCOPY SCREENING, LOW RISK WITH POSSIBLE MODERATE SEDATION [[id number]] 05/28/2024 2:03 PM EST - 05/28/2024 4:00 PM EST Hospital Encounter [facility] Endoscopy [address] [place] [address] Herman Francis MD Discharge Disposition: Home or Self Care (01) 05/27/2024 Orders Only [facility] Transplant Department [address] [place] [address] Qing Christianson RN Liver replaced by transplant (HCC) (Primary Dx); Encounter for immunosuppression management after liver transplant (HCC) 05/22/2024 Documentation [facility] Transplant Department [address] [place] [phone] Kemar-Adia Terrell, [facility] Transportation 05/22/2024 myChart Message [facility] Endoscopy [address] [place] [phone] Mychart, Generic Provider Important medication hold for procedure with Dr. Francis on 05/28/2024 05/09/2024 Refill [facility] Liver Transplant Services [address] [place] [address] Herman Francis MD Other depression 05/05/2024 8:30 AM EST Office Visit [facility] Diabetes Clinic [address] [place] [phone] Sand Screener: Edelmira Martinez NP Post-transplant diabetes mellitus (CMS/HCC) [...] use of insulin (HCC) 04/23/2024 Refill [facility] Transplant Department [address] [place] [address] Mitzi Leiva 04/21/2024 Abstract [facility] Transplant Department [address] [place] [address] Herman Francis MD 04/16/2024 myChart Message [facility] Diabetes [facility] [address] [place] [address] Sand Screener: Nicole Perry LPN Glucose Testing 04/15/2024 Telephone [facility] Endocrinology Clinic [address] [place] [address] Sand Screener: Abraham Amador MD 04/11/2024 Refill [facility] Liver Transplant Services [address] [place] [address] Herman Francis MD 04/09/2024 Prep for Case [facility] Gastroenterology Clinic [address] [place] [phone] Sand Screener: Herman Xie MD 04/09/2024 Refill [facility] Transplant Department [address] [place] [address] Mitzi Leiva Post-transplant diabetes mellitus (CMS/HCC) ([facility]) 04/07/2024 Orders Only [facility] Diabetes [facility] [address] [place] [address] Sand Screener: Edelmira Martinez NP 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, with long-term current use of insulin ([facility]) 03/21/2024 Refill [facility] Liver Transplant Services [address] [place] [address] Adelfo Garzon MD from Last 3 Months Allergies No known active allergies Medications mycophenolate [...] injection doseIndications :Post-transplan t diabetes mellitus (CMS/HCC) ([facility]) Inject 0.5 mL (1.5 mg total) under [...] Chronic hepatitis C virus infection 10/29/2013 07/17/2019 Immunizations Name Administration Dates Next Due Covid-19, Pfizer, mRNA, [place] valent, PF 30 mcg/0.3 mL dose (for ages 12 and older) 09/28/2020,09/07/2020 Social History Tobacco Use Types Packs/Day Years [...] Description 06/26/2024 10:30 AM EST Follow-Up [facility] Liver Transplant Services [address] [place] [address] Herman Francis MD [address] [place] [address] 05/05/2025 8:30 AM EST Office Visit [facility] [address] [place] [address] Sand Screener: Sandra Schaffer, Abraham Ellison MD [address] [place] [address] [phone] (work) Procedures * Due to [place] state law, this organization might not be sharing negative HIV tests. Procedure Name Priority Date/Time Associated Diagnosis Comments MS COLON CA SCRN NOT HI RSK IND [...] to Health Maintenance Results * Due to [place] state law, this organization might not be sharing negative HIV tests. * (ABNORMAL) POCT Glucose, interfaced (05/28/2024 3:05 PM EST) Only the most recent of2 resultswithin the time period is included. Glucose, POCT 129(H) 70 - 99 mg/dL 05/28/2024 3:09 PM EST [facility] Comment: The construction plumber has not determined the efficacy of this test in Critically ill patients. ??[facility] defines Critically ill patients for the purpose [...] LAB POCT ORDERABLES - DEVICE Final Result [facility] [address] [place] [address], * COLONOSCOPY (05/28/2024) Narrative Procedure Note Herman Francis MD - 05/28/2024 2:56 PM EST [facility] Gastroenterology Patient Name: Nhan Rawls Procedure Date: 05/28/2024 2:56 PM Date of : 1960 Admit Type: Outpatient Age: 64 Room: [place] [address] Gender: Male Note Status: Finalized Attending MD: [...] - 3.890 uIU/mL 05/05/2024 11:49 AM EST [facility] Blood Structure of peripheral vein / Unknown Venipuncture / Unknown 05/05/2024 9:33 AM EST 05/05/2024 11:04 AM EST us Edelmira Wang [facility] LAB BLOOD ORDERABLES Final Res ult [facility] [address] [place] [address], * (ABNORMAL) Lipid Panel w/Reflex to Direct LDL (05/05/2024 9:33 AM EST) Cholesterol 177 <=199 mg/dL 05/05/2024 11:49 AM EST [facility] Triglycerides 364(H) <=149 mg/dL 05/05/2024 11:49 AM EST [facility] Cholesterol, HDL 33(L) 40 - 59 mg/dL 05/05/2024 11:49 AM EST [facility] Cholesterol, Non-HDL 144 mg/dL 05/05/2024 11:49 AM EST [facility] LDL Cholesterol 71 <100 mg/dL 05/05/2024 11:49 AM EST [facility] VLDL 72.8 mg/dL 05/05/2024 11:49 AM EST [facility] Cholesterol/HDL Ratio 5.4(H) <5.0 05/05/2024 11:49 AM EST [facility] Blood Structure of peripheral vein / Unknown Venipuncture / Unknown 05/05/2024 9:33 AM EST 05/05/2024 11:04 AM EST Narrative [facility] - 05/05/2024 11:49 AM [...] High ? 110-129 ?High ?>=130 us Edelmira Shah FOLDER TAPER OPERATOR LAB BLOOD ORDERABLES Final Res ult [facility] [address] [place] [address], * T4, Free (05/05/2024 9:33 AM EST) Free T4 1.18 0.93 - 1.70 ng/dL 05/05/2024 12:42 PM EST [facility] Comment: Females: (ng/dL) First [...] AM EST 05/05/2024 11:04 AM EST Edelmira Shah FOLDER TAPER OPERATOR LAB BLOOD ORDERABLES Final Res ult Performing Organization Address [facility] de Phone Number [facility] [address] [place] [address], * Vitamin B12 (05/05/2024 9:33 AM EST) Vitamin B12 880 232 - 1,245 pg/mL 05/05/2024 11:49 AM EST [facility] Blood Structure of peripheral vein / Unknown Venipuncture / Unknown 05/05/2024 9:33 AM EST 05/05/2024 11:04 AM EST Edelmira Shah LAB BLOOD ORDERABLES Final Res ult Performing Organization Address [facility] Phone Number [facility] [address] [place] [address], * (ABNORMAL) POCT Glycosylated Hemoglobin (HGB A1C), interfaced (05/05/2024 8:49 AM EST) Hemoglobin A1C, POCT 6.2(H) <=5.6 % 05/05/2024 9:03 AM EST [facility] Comment: A1C Recommendation for Non- Adults with Diabetes: <7.0% ADA 2011 Standards of Medical Care in Diabetes Blood 05/05/2024 8:49 AM EST 05/05/2024 9:03 AM EST Edelmira Shah FOLDER TAPER OPERATOR LAB POCT ORDERABLES - DEVICE F inal Result Performing Organization Address [facility] de Phone Number [facility] [address] [place] [address], [place] * LIVER POST EXTERNAL PANEL (04/15/2024 11:57 AM EST) Sodium 139 mmol/L [facility] Potassium 4.4 [facility] Chloride 107 [facility] Carbon Dioxide 24 [facility] Glucose 177 [facility] BUN 15 mg/dL [facility] Creatinine 1.72 mg/dL [facility] Calcium 9.1 mg/dL [facility] Total Protein 6.6 g/dL [facility] Albumin 4.1 g/dL [facility] Bilirubin, Total 0.4 mg/dL [facility] Alkaline Phosphatase 136 U/L [facility] AST 22 U/L [facility] ALT 23 U/L [facility] Magnesium 2.10 mg/dL [facility] Hgb 13.7 [facility] Hematocrit 40.3 % [facility] Platelets 142 10*3/uL [facility] 04/15/2024 11:5 7 AM EST us Herman Francis MD LAB BLOOD ORDERABLES Final Re sult [facility] [address] [place] [address] * Microalbumin, Random Urine with Creatinine (01/07/2024 8:57 AM EDT) Microalbumin, Urine 2.9 mg/dL 01/07/2024 10:08 AM EDT [facility] Creatinine, Urine 211 22 - 328 mg/dL 01/07/2024 10:08 AM EDT [facility] Microalb/Creat Ratio, Random Urine 13.7 <30.0 mcg/mgCr 01/07/2024 10:08 AM EDT [facility] Comment: Microalbumin Reference Range: Normal ? <30 mcg/mg Creatinine Microalbuminuria ? 30-300 mcg/mg Creatinine Clinical Albuminuria >300 mcg/mg Creatinine Reference: ADA Guideline. Diabetes Care. 2004;27 (suppl 1) Urine Voided urine specimen / Unknown Non-Blood Collection / Unknown 01/07/2024 8:57 AM EDT 01/07/2024 9:29 AM EDT us Abraham Schaffer MD LAB URINE ORDERABLES Final R esult Performing Organization Address City/[facility]/ZIP Co de Phone Number [facility] [address] [place] [address], * Comprehensive Metabolic Panel, Outside Lab (12/27/2022 9:59 AM EDT) Sodium 143 mmol/L [facility] Potassium 4.8 [facility] Chloride 108 [facility] Carbon Dioxide 26 [facility] Glucose 184 [facility] BUN 17 mg/dL [facility] Creatinine 1.95 mg/dL [facility] Calcium 9.5 mg/dL [facility] Total Protein 7.1 g/dL [facility] Albumin 4.1 g/dL [facility] Bilirubin, Total 0.5 mg/dL [facility] Alkaline Phosphatase 125 U/L [facility] AST 14 U/L [facility] ALT 17 U/L [facility] Blood Structure of peripheral vein / Unknown 12/27/2022 9:59 AM EDT Herman Francis MD LAB BLOOD ORDERABLES Edited R esult - Final Performing Organization Address [facility]/ZIP Co de Phone Number [facility] [address] [place] [address] * HCV PCR QUAL, OUTSIDE LAB (06/08/2015 12:01 AM EST) HCV PCR Qual Not Detected [facility] 06/08/2015 12:0 1 AM EST us Historical Conversion Provider LAB BLOOD ORDERAB LES Final Result Performing Organization Address City/State/[facility] Co de Phone Number [facility] [address] [place], [place] [phone] * Vitamin D, 25-Hydroxy, Total, Immunoassay (04/03/2013 9:11 AM EST) Vitamin D 25 Oh 33 30 - 100 ng/mL [facility] Comment: Vitamin D Status 25-OH Vitamin D Deficiency: <10 ng/mL Insufficiency: 10-29 ng/mL Sufficiency: 30-100 ng/mL Toxicity: >100 ng/mL 04/03/2013 9:11 AM EST 04/03/2013 9:43 AM EST Blaine Nava MD LAB BLOOD ORDERABLES Final Result Performing Organization Address City/[facility] Co de Phone Number [facility] [address] [place] [address], [place] * Phosphorus (04/03/2013 9:11 AM EST) Phosphorus Blood 3.6 2.5 - 4.5 mg/dL [facility] 04/03/2013 9:11 AM EST 04/03/2013 9:39 AM EST Blaine Nava MD LAB BLOOD ORDERABLES Final Result Performing Organization Address [facility] Co de Phone Number [facility] [address] [place] [address], [place] * PTH, Intact (without Calcium) (04/03/2013 9:11 AM EST) Parathyroid Intact 24 12 - 65 pg/mL [facility] 04/03/2013 9:11 AM EST 04/03/2013 9:43 AM EST Blaine Nava MD LAB BLOOD ORDERABLES Final Result [facility] [address] [place] [address], * HIV-1/2 Antigen/Antibodies 4th Generation w/Reflex (01/07/2013 4:27 AM EDT) HIV 1,2 Ab/Ag Stat NEGATIVE NEGATIVE [facility] 01/07/2013 4:27 AM EDT 01/07/2013 8:30 AM EDT us Cedric Lopez MD LAB BLOOD ORDERABLES Final Re sult Performing Organization Address City/[facility]/ZIP Co de Phone Number [facility] [address] [place] [address], from Last 3 Months or Most Recently Relevant to Health Maintenance Additional Health Concerns Infection Onset 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
--- OUTSIDE RECORDS SUMMARY | 2024-06-20 09:38 | XMS_ITS | Encounter Summary ---
Author Organization [facility] Address [address] [place] [address] Care Team Providers Care Parking Lot Supervisor Name Role Phone Nikhil Parisi Primary Care Provider [phone] Reason for Visit * Auth/Cert (Routine) Specialty Diagnoses / Procedures Referred By Juve car Referred To Contact Diagnoses Colon cancer screening Colon cancer screening [Z12.11] Procedures PA COLON CA SCRN NOT HI RSK IND COLONOSCOPY SCREENING, LOW RISK WITH POSSIBLE MODERATE SEDATION Referral ID Status Reason Start Date Expiration Date Visits Re quested Visits Authorized [id number] [phone] Encounter Details Date Type Department Care Team (Latest Contact Info) Description 05/28/2024 2:03 PM EST - 05/28/2024 4:00 PM [facility] Hospital Encounter [facility] Endoscopy [address], [place] [id number] Herman Francis MD [address], [place] [phone] Discharge Disposition: Home or Self Care () Social History Tobacco Use Types Packs/Day Years [...] on file documented as of this encounter Last Filed Vital Signs Vital Sign Reading Time Taken Comments Blood Pressure 119/62 05/28/2024 3:56 PM EST Pulse 71 05/28/2024 3:56 PM EST Temperature 37.1 ??C (98.8 ??F) 05/28/2024 2:51 PM ES T Respiratory Rate 13 05/28/2024 3:56 PM EST Oxygen Saturation 95% 05/28/2024 3:56 PM EST Inhaled Oxygen Concentration - - Weight 98.9 kg (218 lb) 05/28/2024 2:51 PM EST Height 185.4 cm (6' 1 ) 05/28/2024 2:51 PM EST Body Mass Index 28.76 05/28/2024 2:51 PM EST documented in this encounter Discharge Instructions * Discharge Instructions* Eliza Harris RN - 05/28/2024 3:47 PM EST Provation and education reviewed with patient. Patient sedated. documented in this encounter Medications at Time of Discharge amLODIPine (NORVASC) 10 mg tablet Take 1 tablet (10 mg total) by mouth daily. 90 tablet 3 03/26/2024 9:16 PM EST 01/25/2024 01/24/2025 atorvastatin (LIPITOR) 10 mg tablet Take 1 tablet (10 mg total) by mouth once a day. 30 tablet 11 06/10/2024 1:22 PM EST 04/11/2024 04/11/2025 blood glucose diagnostic lancet 28 gaugeIndications: Post-transplant diabetes mellitus (CMS/HCC) (HCC) Use one daily 200 each 3 04/11/2024 4:08 AM EST 04/09/2024 04/09/2025 busPIRone (BUSPAR) 15 mg tablet Take 1 tablet (15 mg total) by mouth every morning AND 2 tablets (30 mg total) every evening. 90 tablet 5 06/10/2024 1:22 PM EST 03/21/2024 cyanocobalamin (vitamin B-12) 1,000 mcg tablet Take 1 tablet (1,000 mcg total) by mouth daily. 90 tablet 3 04/28/2024 9:41 AM EST 04/23/2024 dulaglutide (Trulicity) 1.5 mg/0.5 mL injection doseIndications:P ost-transplant diabetes mellitus (CMS/HCC) (HCC) Inject 0.5 mL (1.5 mg total) under the skin once a week. 2 mL 11 04/28/2024 9:41 AM EST 01/14/2024 01/13/2025 Freestyle Lite test stripsIndications :Post-transplant diabetes mellitus (CMS/HCC) (HCC) Use to test blood sugar once daily. 100 strip 3 05/26/2024 7:47 AM EST 04/08/2024 metoprolol tartrate (LOPRESSOR) 25 mg tabletIndications :History of liver transplant (CMS/HCC) (HCC) TAKE ONE TABLET BY MOUTH TWO TIMES A DAY 60 tablet 11 06/10/2024 1:22 PM EST 01/25/2024 01/24/2025 mirtazapine (REMERON) 15 mg tabletIndications :Other depression Take 1 tablet by mouth at bedtime 30 tablet 11 05/23/2024 7:41 AM EST 05/09/2024 multivitamin (THERAGRAN) tablet TAKE ONE TABLET BY MOUTH DAILY 90 tablet 3 05/13/2024 9:13 AM EST 07/26/2023 08/11/2024 mycophenolate mofetil (CELLCEPT) 250 mg capsuleIndication s:Liver replaced by transplant (HCC) Take 1 capsule (250 mg total) by mouth 2 times a day. 60 capsule 11 05/23/2024 7:41 AM EST 06/27/2023 06/30/2024 tamsulosin (FLOMAX) 0.4 mg capsule Take 1 capsule (0.4 mg total) by mouth once a day. 30 capsule 5 06/10/2024 1:22 PM EST 01/25/2024 01/24/2025 terazosin (HYTRIN) 1 mg capsule TAKE 1 CAPSULE BY MOUTH AT BEDTIME NIGHTLY. 30 capsule 11 05/09/2024 05/09/2025 documented as of this encounter H&P Notes * Herman Francis MD - 05/28/2024 3:04 PM EST Endoscopy History and Physical Nhan Rawls is an 64 y.o. male who is here for a(n) Colonoscopy at [facility]. The indication for the procedure is screening. Past Medical History: Diagnosis Date Alcohol dependence in remission 02/27/2014 Anxiety Chronic hepatitis C virus infection 10/29/2013 Chronic kidney disease (CKD) stage G3a/A1, moderately decreased glomerular filtration rate (GFR) between 45-59 mL/min/1.73 square meter and albuminuria creatinine ratio less than 30 mg/g 02/27/2014 Past Surgical History: Procedure Laterality Date CYST REMOVAL 1970 LIVER TRANSPLANT 12/24/2012 PA COLON CA SCRN NOT HI RSK IND Left 08/22/2023 Procedure: COLONOSCOPY SCREENING, LOW RISK WITH POSSIBLE MODERATE SEDATION; Surgeon: Herman Francis MD; Location: [facility]; Service: Gastroenterology There is no additional cardiovascular, pulmonary, or neurological medical problems. There is no personal or family history of sedation complications unless otherwise documented. No current facility-administered medications on file prior to encounter. Current Outpatient Medications on File Prior to Encounter Medication Sig [DISCONTINUED] buPROPion SR (WELLBUTRIN SR) 100 mg tablet Take 1 tablet by mouth daily for 1 week then increase to 1 tablet twice daily multivitamin (THERAGRAN) tablet TAKE ONE TABLET BY MOUTH DAILY mycophenolate mofetil (CELLCEPT) 250 mg capsule Take 1 capsule (250 mg total) by mouth 2 times a day. sirolimus (RAPAMUNE) 0.5 mg tablet Take 1 tablet (0.5 mg total) by mouth daily. No Known Allergies Objective BP 135/66 (BP Location: Left arm, Patient Position: Sitting) Pulse 83 Temp 37.1 ??C (98.8 ??F) (Temporal) Resp (!) 13 Ht 1.854 m (6' 1 ) Wt 98.9 kg (218 lb) SpO2 99% BMI 28.76 kg/m?? Physical Exam Constitutional: Appearance: Normal appearance. Cardiovascular: Rate and Rhythm: Normal rate and regular rhythm. Pulses: Normal pulses. Heart sounds: Normal heart sounds. Pulmonary: Effort: Pulmonary effort is normal. Breath sounds: Normal breath sounds. Abdominal: General: Bowel sounds are normal. Palpations: Abdomen is soft. Musculoskeletal: Cervical back: Normal range of motion. Neurological: Mental Status: He is alert. Sedation Plan Pre-sedation assessment: Time since last food or drink: > 6 hours ASA classification: class 2 - patient with mild systemic disease Neck mobility: normal Mouth opening: Normal Dentition: Own teeth Thyromental distance: <3 finger breadths Mallampati score: II - soft palate, uvula, fauces visible History of difficult intubation: no Pre-sedation assessment completed: 05/28/2024 3:05 PM Assessment & Plan The patient is appropriate for the scheduled procedure. The patient will receive moderate sedation. documented in this encounter Procedure Notes * Herman Francis MD - 05/28/2024 2:56 PM ESTAssociated Order(s): COLONOSCOPY [facility] Gastroenterology Patient Name: Nhan Rawls Procedure Date: 05/28/2024 2:56 PM Date of : 1960 Admit Type: Outpatient Age: 64 Room: [place] [address] Gender: Male Note Status: Finalized Attending MD: Herman Francis MD Procedure: Colonoscopy Indications: Screening for colorectal malignant neoplasm Comorbidities Providers: Herman Francis MD Referring MD: Requesting Provider: Medicines: Midazolam 5 mg IV, Fentanyl 125 micrograms IV Complications: No immediate complications. Estimated Blood Loss: Estimated blood loss: none. Procedure: Pre-Anesthesia Assessment: - Prior to the procedure, a History and Physical was performed, and patient medications and allergies were reviewed. The patient is competent. The risks and benefits of the procedure and the sedation options and risks were discussed with the patient. All questions were answered and informed consent was obtained. Patient identification and proposed procedure were verified by the physician and the nurse in the procedure room. Mental Status Examination: alert and oriented. Airway Examination: normal oropharyngeal airway and neck mobility. Respiratory Examination: clear to auscultation. CV Examination: normal. Prophylactic Antibiotics: The patient does not require prophylactic antibiotics. Prior Anticoagulants: The patient has taken no anticoagulant or antiplatelet agents. ASA Grade Assessment: II - A patient with mild systemic disease. After reviewing the risks and benefits, the patient was deemed in satisfactory condition to undergo the procedure. The anesthesia plan was to use moderate sedation / analgesia (conscious sedation). Immediately prior to administration of medications, the patient was re-assessed for adequacy to receive sedatives. The heart rate, respiratory rate, oxygen saturations, blood pressure, adequacy of pulmonary ventilation, and response to care were monitored throughout the procedure. The physical status of the patient was re-assessed after the procedure. After I obtained informed consent, the scope was passed under direct vision. Throughout the procedure, the patient's blood pressure, pulse, and oxygen saturations were monitored continuously. The Colonoscope was introduced through the anus and advanced to the cecum, identified by appendiceal orifice and ileocecal valve. The colonoscopy was performed without difficulty. The patient tolerated the procedure well. The quality of the bowel preparation was good. The quality of the bowel preparation was evaluated using the BBPS ([place] Bowel Preparation Scale) with scores of: Right Colon = 3, Transverse Colon = 3 and Left Colon = 3 (entire mucosa seen well with no residual staining, small fragments of stool or opaque liquid). The total BBPS score equals 9. The bowel preparation used was GoLYTELY via split dose instruction. Findings: Hemorrhoids were found [...] 0 Note Initiated On: 05/28/2024 2:56 PM documented in this encounter Plan of Treatment Upcoming Encounters Date Type Department Care Team (Late st Contact Info) Description 06/26/2024 10:30 AM EST Follow-Up [facility] Liver Transplant Services [address] [place] [address] Herman Francis MD [address] [place] [address] 05/05/2025 8:30 AM EST Office Visit [facility] Building Diabetes Clinic [address] [place] [address] Die Attacher: Sandra Schaffer, Abraham Ellison MD [address] [place] [address] documented as of this encounter Procedures * Due to [place] [employer] law, this organization might not be sharing negative HIV tests. Procedure Name Priority Date/Time Associated Diagnosis Comments PA COLON CA SCRN NOT HI RSK IND 05/28/2024 3:08 PM EST Colon cancer screening POCT GLUCOSE Routine 05/28/2024 3:05 PM EST COLONOSCOPY 05/28/2024 documented in this encounter Results * Due to [place] [employer] law, this organization might not be sharing negative HIV tests. * (ABNORMAL) POCT Glucose, interfaced (05/28/2024 3:05 PM EST) Glucose, POCT 129(H) 70 - 99 mg/dL 05/28/2024 3:09 PM EST [facility] Comment: The foreclosure home inspector has not determined the efficacy of this test in Critically ill patients. ??[facility] defines Critically ill patients for the purpose [...] LAB POCT ORDERABLES - DEVICE Final Result [facility] [address] [place] [address], [place] * COLONOSCOPY (05/28/2024) Narrative Procedure Note Herman Francis MD - 05/28/2024 2:56 PM EST [facility] Gastroenterology Patient Name: Nhan Rawsl Procedure Date: 05/28/2024 2:56 PM Date of : 1960 Admit Type: Outpatient Age: 64 Room: [place] [address] Gender: Male Note Status: Finalized Attending MD: [...] 0 Note Initiated On: 05/28/2024 2:56 PM Herman Francis MD PROVATION PROCEDURES Final Re sult documented in this encounter Visit Diagnoses Not on filedocumented in this encounter Administered Medications Inactive Administered Medications - up to 3 most recent administrations Medication Order MAR Action Action Date Dose Rate Site sodium chloride 0.9% flush 3-10 mL 3-10 mL, intravenous, PRN Flush, line care, Flush peripheral line with a minimum of 3 mL, before and after use or every 12 hours., Starting on Sun05/28/24 at 1413, Until 06/02/24 at 1022, Preprocedure (GI) documented in this encounter Active and Recently Administered Medications Times are shown in EST. PRN Medication Order 05/26/2024 05/27/2024 05/28/2024 fentaNYL (PF) injection (CANCELED) intravenous, As needed, Starting on Sun05/28/24 at 1512, Until Sun05/28/24 at 1533, Intra-op 1512 (Given - Provid er: Anita Staples RN)1514 (Given - Provider: Anita Staples RN)1518 (Given - Provider: Anita Staples RN) flumazeniL (ROMAZICON) injection 0.2 mg 0.2 mg, intravenous, Every 5 min PRN, Respiratory Distress or Over Sedation, Starting on Sun05/28/24 at 1542, 3 doses, Until Sun06/02/24 at 1022, Recovery (GI) midazolam (VERSED) injection (CANCELED) intravenous, As needed, Starting on Sun05/28/24 at 1512, Until Sun05/28/24 at 1533, Intra-op 1512 (Given - Provid er: Anita Staples RN)151 (Given - Provider: Anita Staples RN)151 (Given - Provider: Anita Staples RN) naloxone 0.04 mg injection 0.04 mg, intravenous, Every 3 minutes as needed, opioid reversal, respiratory depression, Starting on Sun05/28/24 at 1542, 3 doses, Until Sun06/02/24 at 1022, Recovery (GI), Draw up 1 mL from 0.4 mg/mL injection and add 9 mL NS for a final concentration of 0.04 mg/mL. 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
--- OUTSIDE RECORDS SUMMARY | 2024-06-20 09:38 | XMS_ITS | Encounter Summary ---
Author Organization [facility] Address [address] [place] [address] Care Team Providers Care Director Instrumentation Name Role Phone Nikhil Parisi Primary Care Provider [phone] Encounter Details Date Type Department Care Team (Late st Contact Info) Description 05/29/2016 Orders Only [facility] Building [address] [place] [address] Adelfo Garzon MD [address] [place] [address] Social History Tobacco Use Types Packs/Day Years Used Date Smoking Tobacco: Never Assessed Sex and Gender Information Value Date Recorded Sex Assigned at Male 2021 11:20 AM EDT Legal Sex Male 6:55 AM EDT Gender Identity Male 2021 11:20 AM EDT Sexual Orientation Choose not to disclose 2020 11:20 AM EDT documented as of this encounter Plan of Treatment Upcoming Encounters Date Type Department Care Team (Late st Contact Info) Description 06/26/2024 10:30 AM EST Follow-Up [facility] Liver Transplant Services [address] [place] [address] Herman Francis MD [address] [place] [address] 05/05/2025 8:30 AM EST Office Visit [facility] Building Diabetes Clinic [address] [place] [address] Mangle Press Catcher: Abraham Amador J., MD [address] [place] [address] documented as of this encounter Visit Diagnoses Not on filedocumented in this encounter Additional Health Concerns Infection Onset Date Last Indicated Resolved Time 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
--- OUTSIDE RECORDS SUMMARY | 2024-06-20 09:38 | XMS_ITS | Encounter Summary ---
Author Organization [facility] Address [address] [place] [address] Care Team Providers Care Data Warehouse Manager Name Role Phone Nikhil Parisi Primary Care Provider [phone] Encounter Details Date Type Department Care Team (Late st Contact Info) Description 08/21/2016 Orders Only [facility] Building [address] [place] [address] Adelfo Garzon MD [address] [place] [address] Social History Tobacco Use Types Packs/Day Years [...] Info) Description 06/26/2024 10:30 AM EST Follow-Up [facility] Liver Transplant Services [address] [place] [address] Herman Francis MD [address] [place] [address] 05/05/2025 8:30 AM EST Office Visit [facility] Building Diabetes Clinic [address] [place] [address] Development Executive: Abraham Amador J., MD [address] [place] [address] documented as of this encounter Visit Diagnoses Not on filedocumented in this encounter Additional Health Concerns Infection Onset Date Last Indicated Resolved Time 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
--- OUTSIDE RECORDS SUMMARY | 2024-06-20 09:38 | XMS_ITS | Encounter Summary ---
Author Organization [facility] Address [address] [place] [address] Care Team Providers Care Certified Addiction Counselor Name Role Phone Nikhil Parisi Primary Care Provider [phone] Encounter Details Date Type Department Care Team (Late st Contact Info) Description 01/08/2017 Orders Only [facility] Building [address] [place] [address] David Bowie MD [address] [place] [address] Endocr[place] [address] Social History Tobacco Use Types Packs/Day Years [...] Info) Description 06/26/2024 10:30 AM EST Follow-Up [facility] Liver Transplant Services [address] [place] [address] Herman Francis MD [address] [place] [address] 05/05/2025 8:30 AM EST Office Visit [facility] Building Diabetes Clinic [address] [place] [address] Internet Project Manager: Abraham Amador J., MD [address] [place] [address] documented as of this encounter Visit Diagnoses Not on filedocumented in this encounter Additional Health Concerns Infection Onset Date Last Indicated Resolved Time 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
--- OUTSIDE RECORDS SUMMARY | 2024-06-20 09:38 | XMS_ITS | Encounter Summary ---
Author Organization [facility] Address [address] [place] [address] Care Team Providers Care Biomass Plant Manager Name Role Phone Nikhil Parisi Primary Care Provider [phone] Encounter Details Date Type Department Care Team (Late st Contact Info) Description 07/28/2016 Orders Only [facility] Building [address] [place] [address] Patito Carpenter MD [address] [place] [address] Social History Tobacco Use Types Packs/Day Years [...] Info) Description 06/26/2024 10:30 AM EST Follow-Up 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
--- OUTSIDE RECORDS SUMMARY | 2024-06-20 09:38 | XMS_ITS | Encounter Summary ---
Author Organization [facility] Address [address] [place] [address] Care Team Providers Care Brim Edge Trimmer Name Role Phone Nikhil Parisi Primary Care Provider [phone] Encounter Details Date Type Department Care Team (Late st Contact Info) Description 10/30/2016 Orders Only [facility] Building [address] [place] [address] Adelfo Garzon MD [address] [place] [address] Social History Tobacco Use Types Packs/Day Years [...] Info) Description 06/26/2024 10:30 AM EST Follow-Up [facility] Liver Transplant Services [address] [place] [address] Herman Francis MD [address] [place] [address] 05/05/2025 8:30 AM EST Office Visit [facility] Building Diabetes Clinic [address] [place] [address] Utility Bill Collection Clerk: Abraham Amador J., MD [address] [place] [address] documented as of this encounter Visit Diagnoses Not on filedocumented in this encounter Additional Health Concerns Infection Onset Date Last Indicated Resolved Time 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
--- OUTSIDE RECORDS SUMMARY | 2024-06-20 09:38 | XMS_ITS | Encounter Summary ---
Author Organization [facility] Address [address] [place] [address] Care Team Providers Care Endocrinology Teacher Name Role Phone Nikhil Parisi Primary Care Provider [phone] Encounter Details Date Type Department Care Team (Late st Contact Info) Description 12/15/2015 Orders Only [facility] Building [address] [place] [address] David Bowie MD [address] [place] [address] Endocr[place] [address] Social History Tobacco Use Types Packs/Day Years [...] Info) Description 06/26/2024 10:30 AM EST Follow-Up [facility] Liver Transplant Services [address] [place] [address] Herman Francis MD [address] [place] [address] 05/05/2025 8:30 AM EST Office Visit [facility] Building Diabetes Clinic [address] [place] [address] Scientific Database Curator: Abraham Amador J., MD [address] [place] [address] documented as of this encounter Visit Diagnoses Not on filedocumented in this encounter Additional Health Concerns Infection Onset Date Last Indicated Resolved Time 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
--- OUTSIDE RECORDS SUMMARY | 2024-06-20 09:38 | XMS_ITS | Encounter Summary ---
Author Organization [facility] Address [address] [place] [address] Care Team Providers Care Engine Lathe Tender Name Role Phone Nikhil Parisi Primary Care Provider [phone] Encounter Details Date Type Department Care Team (Late st Contact Info) Description 07/04/2016 Orders Only [facility] Specialty Pharmacy [facility] Building [address] [place] [address] Blaine Nava MD [address] [place] [address] Social History Tobacco Use Types Packs/Day Years [...] Info) Description 06/26/2024 10:30 AM EST Follow-Up [facility] Liver Transplant Services [address] [place] [address] Herman Francis MD [address] [place] [address] 05/05/2025 8:30 AM EST Office Visit [facility] Building Diabetes Clinic [address] [place] [address] Center Hole Reamer: Abraham Amador., MD [address] [place] [address] documented as of this encounter Visit Diagnoses Not on filedocumented in this encounter Additional Health Concerns Infection Onset Date Last Indicated Resolved Time 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
--- OUTSIDE RECORDS SUMMARY | 2024-06-20 09:38 | XMS_ITS | Encounter Summary ---
Author Organization [facility] Address [address] [place] [address] Care Team Providers Care Paper Cone Drying Machine Operator Name Role Phone Nikhil Parisi Primary Care Provider [phone] Encounter Details Date Type Department Care Team (Late st Contact Info) Description 02/04/2016 Orders Only [facility] Specialty Pharmacy [facility] Building [address] [place] [address] Adelfo Garzon MD [address] [place] [address] Social History Tobacco Use Types Packs/Day Years [...] Info) Description 06/26/2024 10:30 AM EST Follow-Up [facility] Liver Transplant Services [address] [place] [address] Herman Francis MD [address] [place] [address] 05/05/2025 8:30 AM EST Office Visit [facility] Building Diabetes Clinic [address] [place] [address] Balloon Dipper: Abraham Amador J., MD [address] [place] [address] documented as of this encounter Visit Diagnoses Not on filedocumented in this encounter Additional Health Concerns Infection Onset Date 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
--- OUTSIDE RECORDS SUMMARY | 2024-06-20 09:38 | XMS_ITS | Encounter Summary ---
Author Organization [facility] Address [address] [place] [address] Care Team Providers Care Bottle Tester Name Role Phone Nikhil Parisi Primary Care Provider [phone] Encounter Details Date Type Department Care Team (Late st Contact Info) Description 01/17/2016 Orders Only [facility] Specialty Pharmacy [facility] Building [address] [place] [address] Vangie Epstein Social History Tobacco Use Types Packs/Day Years [...] Info) Description 06/26/2024 10:30 AM EST Follow-Up [facility] Liver Transplant Services [address] [place] [address] Herman Francis MD [address] [place] [address] 05/05/2025 8:30 AM EST Office Visit [facility] Building Diabetes Clinic [address] [place] [address] Carbonating Stone Cleaner: Sandra Schaffer, Abraham Ellison MD [address] [place] [address] documented as of this encounter Visit Diagnoses Not on filedocumented in this encounter Additional Health Concerns Infection Onset Date Last Indicated Resolved Time 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
--- OUTSIDE RECORDS SUMMARY | 2024-06-20 09:38 | XMS_ITS | Encounter Summary ---
Author Organization [facility] Address [address] [place] [address] Care Team Providers Care Veneer Cutter Name Role Phone Nikhil Parisi Primary Care Provider [phone] Encounter Details Date Type Department Care Team (Late st Contact Info) Description 2017 Transplant Conversio n Encounter [facility] Health Information Management [address] [place] [address] Provider, Historical Conversion [place] Social History Tobacco Use Types Packs/Day Years Used Date Smoking Tobacco: Never Comments:: Sex and Gender Information Value Date Recorded Sex Assigned at Male 2021 11:20 AM EDT Legal Sex Male 6:55 AM EDT Gender Identity Male 2021 11:20 AM EDT Sexual Orientation Choose not to disclose 2020 11:20 AM EDT documented as of this encounter Plan of Treatment Upcoming Encounters Date Type Department Care Team (Late st Contact Info) Description 06/26/2024 10:30 AM EST Follow-Up [facility] Liver Transplant Services [address] [place] [address] Herman Francis MD [address] [place] [address] 05/05/2025 8:30 AM EST Office Visit [facility] Building Diabetes Clinic [address] [place] [address] Chief Passenger Ship Steward/Stewardess: Sandra Schaffer, Abraham Ellison MD [address] [place] [address] documented as of this encounter Visit Diagnoses Not on filedocumented in this encounter Additional Health Concerns Infection Onset Date Last Indicated Resolved Time 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
--- OUTSIDE RECORDS SUMMARY | 2024-06-20 09:38 | XMS_ITS | Encounter Summary ---
Author Organization [facility] Address [address] [place] [address] Care Team Providers Care Wallpaper Printer Helper Name Role Phone Nikhil Parisi Primary Care Provider [phone] Encounter Details Date Type Department Care Team (Late st Contact Info) Description 07/03/2016 Orders Only [facility] Specialty Pharmacy [facility] Building [address] [place] [address] Vangie Epstein Social History Tobacco Use Types [...] Info) Description 06/26/2024 10:30 AM EST Follow-Up [facility] Liver Transplant Services [address] [place] [address] Herman Francis MD [address] [place] [address] 05/05/2025 8:30 AM EST Office Visit [facility] Building Diabetes Clinic [address] [place] [address] Chronometer Tester: Sandra Schaffer, Abraham Ellison MD [address] [place] [address] documented as of this encounter Visit Diagnoses Not on filedocumented in this encounter Additional Health Concerns Infection Onset Date Last Indicated Resolved Time 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
--- OUTSIDE RECORDS SUMMARY | 2024-06-20 09:38 | XMS_ITS | Encounter Summary ---
Author Organization [facility] Address [address] [place] [address] Care Team Providers Care High Rigger Name Role Phone Nikhil Parisi Primary Care Provider [phone] Encounter Details Date Type Department Care Team (Late st Contact Info) Description 08/24/2016 Orders Only [facility] Specialty Pharmacy [facility] Building [address] [place] [address] Vangie Epstein Social History Tobacco Use Types [...] Info) Description 06/26/2024 10:30 AM EST Follow-Up [facility] Liver Transplant Services [address] [place] [address] Herman Francis MD [address] [place] [address] 05/05/2025 8:30 AM EST Office Visit [facility] Building Diabetes Clinic [address] [place] [address] Stucco Worker: Sandra Schaffer, Abraham Ellison MD [address] [place] [address] documented as of this encounter Visit Diagnoses Not on filedocumented in this encounter Additional Health Concerns Infection Onset Date Last Indicated Resolved Time 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
--- OUTSIDE RECORDS SUMMARY | 2024-06-20 09:38 | XMS_ITS | Encounter Summary ---
Author Organization [facility] Address [address] [place] [address] Care Team Providers Care Railroad Car Cleaning Supervisor Name Role Phone Nikhil Parisi Primary Care Provider [phone] Reason for Visit * Reason Comments Med Refill Encounter Details Date Type Department Care Team (Late st Contact Info) Description 06/06/2024 Refill [facility] Liver Transplant Services [address] [place] [address] [phone] Herman Francis MD [address] [place] [address] [phone] History of liver transplant (CMS/HCC) (HCC) Social History Tobacco Use Types Packs/Day [...] Encounters Date Type Department Care Team (Late Contact Info) Description 06/26/2024 10:30 AM EST Follow-Up [facility] Liver Transplant Services [address] [place] [address] [phone] Herman Francis MD [address] [place] [address] [phone] 05/05/2025 8:30 AM EST Office Visit [facility] Diabetes Clinic [address] [place], [place] [phone] Sample Driller: Sandra Schaffer, Abraham Ellison MD [address] [place] [address] [phone] documented as of this encounter Visit Diagnoses Diagnosis History of liver transplant (CMS/HCC) (HCC) Liver replaced by transplant documented in this encounter Additional Health Concerns Infection Onset Date Last Indicated Resolved Time 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
--- OUTSIDE RECORDS SUMMARY | 2024-06-20 09:38 | XMS_ITS | Encounter Summary ---
Author Organization [facility] Address [address] [place] [address] Care Team Providers Care Finishing Pan Operator Name Role Phone Nikhil Parisi Primary Care Provider [phone] Encounter Details Date Type Department Care Team (Late st Contact Info) Description 08/27/2016 Orders Only [facility] Specialty Pharmacy [facility] Building [address] [place] [address] Blaine Nava MD [address] [place] [address] Social History Tobacco Use Types Packs/Day Years [...] Info) Description 06/26/2024 10:30 AM EST Follow-Up 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
--- OUTSIDE RECORDS SUMMARY | 2024-06-20 09:38 | XMS_ITS | Encounter Summary ---
Author Organization [facility] Address [address] [place] [address] Care Team Providers Care Photogrammetry Airplane Pilot Name Role Phone Nikhil Parisi Primary Care Provider [phone] Encounter Details Date Type Department Care Team (Late st Contact Info) Description 06/28/2016 Orders Only [facility] Specialty Pharmacy [facility] Building [address] [place] [address] Blaine Nava MD [address] [place] [address] Social History Tobacco Use Types Packs/Day Years [...] Info) Description 06/26/2024 10:30 AM EST Follow-Up [facility] Liver Transplant Services [address] [place] [address] Herman Francis MD [address] [place] [address] 05/05/2025 8:30 AM EST Office Visit [facility] Building Diabetes Clinic [address] [place] [address] News Specialist: Abraham Amador., MD [address] [place] [address] documented as of this encounter Visit Diagnoses Not on filedocumented in this encounter Additional Health Concerns Infection Onset Date Last Indicated Resolved Time 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
--- OUTSIDE RECORDS SUMMARY | 2024-06-20 09:38 | XMS_ITS | Encounter Summary ---
Author Organization [facility] Address [address] [place] [address] Care Team Providers Care Laborer Yard Name Role Phone Nikhil Parisi Primary Care Provider [phone] Encounter Details Date Type Department Care Team (Late st Contact Info) Description 11/14/2016 Orders Only [facility] Specialty Pharmacy [facility] Building [address] [place] [address] Blaine Nava MD [address] [place] [address] Social History Tobacco Use Types Packs/Day Years [...] Info) Description 06/26/2024 10:30 AM EST Follow-Up [facility] Liver Transplant Services [address] [place] [address] Herman Francis MD [address] [place] [address] 05/05/2025 8:30 AM EST Office Visit [facility] Building Diabetes Clinic [address] [place] [address] Angular Js Developer: Abraham Amador., MD [address] [place] [address] documented as of this encounter Visit Diagnoses Not on filedocumented in this encounter Additional Health Concerns Infection Onset Date Last Indicated Resolved Time 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
--- OUTSIDE RECORDS SUMMARY | 2024-06-20 09:38 | XMS_ITS | Encounter Summary ---
Author Organization [facility] Address [address] [place] [address] Care Team Providers Care Sales Office Coordinator Name Role Phone Nikhil Parisi Primary Care Provider [phone] Reason for Visit * Auth/Cert (Routine) Specialty Diagnoses / Procedures Referred By Juve [place] Referred To Contact Diagnoses Colon cancer screening Colon cancer screening [Z12.11] Procedures [place] COLON CA SCRN NOT HI RSK IND COLONOSCOPY SCREENING, LOW RISK WITH POSSIBLE MODERATE SEDATION Referral ID Status Reason Start Date Expiration Date Visits Re quested Visits Authorized [id number] 99 [phone] Encounter Details Date Type Department Care Team (Late st Contact Info) Description 05/28/2024 2:45 PM EST - 05/28/2024 3:25 PM EST Surgery [facility] Endoscopy [address] [place] [address] Herman Francis MD [address] [place] [address] COLONOSCOPY SCREENING, LOW RISK WITH POSSIBLE MODERATE SEDATION [G0121] Social History Tobacco Use Types Packs/Day Years [...] Sign Reading Time Taken Comments Blood Pressure 117/63 05/28/2024 3:25 PM EST Pulse 75 05/28/2024 3:25 PM EST Temperature 37.1 ??C (98.8 ??F) 05/28/2024 2:51 PM ES T Respiratory Rate 10 05/28/2024 3:25 PM EST Oxygen Saturation 95% 05/28/2024 3:25 PM EST Inhaled Oxygen Concentration - - [...] who is here for a(n) Colonoscopy at [facility]. The indication for the procedure is screening. Past Medical History: Diagnosis Date Alcohol dependence in remission 02/27/2014 Anxiety Chronic hepatitis C virus infection 10/29/2013 Chronic kidney disease (CKD) stage G3a/A1, moderately decreased glomerular filtration rate (GFR) between 45-59 mL/min/1.73 square meter and albuminuria creatinine ratio less than 30 mg/g 02/27/2014 Past Surgical History: Procedure Laterality Date CYST REMOVAL 1970 LIVER TRANSPLANT 12/24/2012 [place] COLON CA SCRN NOT HI RSK IND Left 08/22/2023 Procedure: COLONOSCOPY SCREENING, LOW RISK WITH POSSIBLE MODERATE SEDATION; Surgeon: Herman Francis MD; Location: [facility]; Service: Gastroenterology There is no additional cardiovascular, [...] - 05/28/2024 2:56 PM ESTAssociated Order(s): COLONOSCOPY [facility] Patient Name: Nhan Rawls Procedure Date: 05/28/2024 2:56 PM Date of : 1960 Admit Type: Outpatient Age: 64 Room: [place] [address] Gender: Male Note Status: Finalized Attending MD: [...] bowel preparation was evaluated using the BBPS ([place] Bowel Preparation Scale) with scores of: Right [facility] [address] [place] [address] Herman Francis MD [address] [place] [address] 05/05/2025 8:30 AM EST Office Visit [facility] Building Diabetes Clinic [address] [place] [address] Header Machine Operator: Sandra Schaffer, Abraham Ellison MD [address] [place] [address] documented as of this encounter Procedures * Due to [place] law, this organization might not be sharing negative HIV tests. Procedure Name Priority Date/Time Associated Diagnosis Comments [place] COLON CA SCRN NOT HI RSK IND 05/28/2024 3:08 PM EST Colon cancer screening POCT GLUCOSE Routine 05/28/2024 3:05 PM EST COLONOSCOPY 05/28/2024 documented in this encounter Results * Due to [place] law, this organization might not be sharing negative HIV tests. * (ABNORMAL) POCT Glucose, interfaced (05/28/2024 3:05 PM EST) Glucose, POCT 129(H) 70 - 99 mg/dL 05/28/2024 3:09 PM EST [facility] Comment: The expeller operator has not determined the efficacy of this test in Critically ill patients. ??[facility] defines Critically ill patients for the [...] LAB POCT ORDERABLES - DEVICE Final Result [facility] [address] [place] [address], [place] * COLONOSCOPY (05/28/2024) Narrative Procedure Note Herman Francis MD - 05/28/2024 2:56 PM EST [facility] Patient Name: Nhan Rawls Procedure Date: 05/28/2024 2:56 PM Date of : 1960 Admit Type: Outpatient Age: 64 Room: [place] [address] Gender: Male Note Status: Finalized Attending MD: [...] sult documented in this encounter Visit Diagnoses Diagnosis Colon cancer screening Special screening for malignant neoplasms, colon documented in this encounter Administered Medications Inactive Administered Medications - up to 3 most recent administrations Medication Order MAR Action Action Date Dose Rate Site fentaNYL (PF) injection intravenous, As needed, Starting on Sun05/28/24 at 1512, Until Sun05/28/24 at 1533, Intra-op Given 05/28/2024 3:18 PM EST 25 mcg Given 05/28/2024 3:14 PM EST 50 mcg Given 05/28/2024 3:12 PM EST 50 mcg midazolam (VERSED) injection intravenous, As needed, Starting on Sun05/28/24 at 1512, Until Sun05/28/24 at 1533, Intra-op Given 05/28/2024 3:18 PM EST 1 mg Given 05/28/2024 3:14 PM EST 2 mg Given 05/28/2024 3:12 PM EST 2 mg sodium chloride 0.9% flush 3-10 mL 3-10 [...] at 1512, Until Sun05/28/24 at 1533, Intra-op 151 (Given - Provid er: Anita Staples RN)151 (Given - Provider: Anita Staples RN)151 (Given - Provider: Anita Staples RN) [email or web address] [...] documented as of this encounter Care Teams Sales Office Coordinator Relationship Specialty Start Date End Date Nikhil Parisi [address] [place] [address] [place] [address] PCP - General 12/07/16 documented as of this encounter
--- OUTSIDE RECORDS SUMMARY | 2024-06-20 09:38 | XMS_ITS | Encounter Summary ---
Author Organization [facility] Address [address] [place] [address] Care Team Providers Care Waist Fitter Name Role Phone Nikhil Parisi Primary Care Provider [phone] Encounter Details Date Type Department Care Team (Late st Contact Info) Description 02/14/2016 Orders Only [facility] Specialty Pharmacy [facility] Building [address] [place] [address] Blaine Nava MD [address] [place] [address] Social History Tobacco Use Types Packs/Day Years [...] Info) Description 06/26/2024 10:30 AM EST Follow-Up [facility] Liver Transplant Services [address] [place] [address] Herman Francis MD [address] [place] [address] 05/05/2025 8:30 AM EST Office Visit [facility] Building Diabetes Clinic [address] [place] [address] Dinkey Engine Firer: Abraham Amador., MD [address] [place] [address] documented as of this encounter Visit Diagnoses Not on filedocumented in this encounter Additional Health Concerns Infection Onset Date Last Indicated Resolved Time 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
[2024-06-20 09:50] LABS: Alanine Aminotransferase 28 U/L (0-40); Albumin Level 3.9 g/dL (3.5-5.0); Alkaline Phosphatase 124 U/L (39-117); Anion Gap 13 (12-20); Aspartate Amino Transferase 20 U/L (5-37); Bilirubin Total 0.4 mg/dL (0.0-1.0); Blood Urea Nitrogen 15 mg/dL (9-16); Calcium 8.7 mg/dL (8.4-10.2); Carbon Dioxide 22 mmol/L (22-29); Chloride 110 mmol/L (96-108); Estimated Glomerular Filt Rate 49; Glucose Random 163 mg/dL (60-115); Magnesium 2.1 mg/dL (1.6-2.6); Potassium 3.8 mmol/L (3.3-5.1); Sodium 141 mmol/L (135-145); Total Protein 6.9 g/dL (6.5-8.0)
[2024-06-21 15:03] LABS: Sirolimus 3.4 ng/mL (3.0-18.0)
== END 2024-06-20 09:10 | disposition home or self-care (01) ==
LOC: HO.LABR 09:09
PROVIDERS: PCP Internal Medicine; Visit Provider Internal Medicine
DX: Z94.4 Liver transplant status (principal)
CPT/HCPCS: 36415; 80053; 80195; 83735; 85025

== ENCOUNTER 2024-09-12 12:27 | Outpatient (REF) | payer MEDICARE, MEDICAID, SELFPAY ==
[2024-09-12 12:45] LABS: MANUAL DIFF FLAG NO
--- OUTSIDE RECORDS SUMMARY | 2024-09-12 13:11 | XMS_ITS | Referral Summary ---
Author Organization [facility] Address [address] [place] [address] Care Team Providers Care Pick Up Attendant Name Role Phone Nikhil Parisi Primary Care Provider [phone] Encounters Date Type Department Care Team Description 07/18/2024 Refill [facility] G[facility]ology Clinic [address] [place] [address] Emergency Generator Mechanic: Herman Xie MD 06/26/2024 10:30 AM EST Follow-Up [facility] Liver Transplant Services [address] [place] [address] 9[address]38 Herman Francis MD Other cirrhosis of liver (Primary Dx); Encounter for immunosuppression management after liver transplant 06/23/2024 Abstract [facility] Transplant Department [address] [place] [address] 25075 Herman Francis MD 06/20/2024 Refill [facility] Transplant Services [address] [place] [address] 30997 Herman Francis MD Liver replaced by transplant from Last 3 Months Allergies No known active allergies Medications dulaglutide (Trulicity) 1.5 mg/0.5 mL injection doseIndications :Post-transplan t diabetes mellitus (HCC) Inject 0.5 mL (1.5 mg total) under the skin once a week. 2 mL 11 07/15/2024 4:15 AM EST 4 01/14/20 25 Active amLODIPine (NORVASC) 10 mg tablet Take 1 tablet (10 mg total) by mouth daily. 90 tablet 3 06/23/2024 12:18 PM EST 4 01/25/20 25 Active metoprolol tartrate (LOPRESSOR) 25 mg tabletIndicatio ns:History of liver transplant (HCC) TAKE ONE TABLET BY MOUTH TWO TIMES A DAY 60 tablet 11 09/08/2024 1:53 PM EDT 4 01/25/20 25 Active busPIRone (BUSPAR) 15 mg tablet Take 1 tablet (15 mg total) by mouth every morning AND 2 tablets (30 mg total) every evening. 90 tablet 5 09/08/2024 1:53 PM EDT 4 Active Freestyle Lite test stripsIndicatio ns:Post-transpl ant diabetes mellitus (HCC) Use to test blood sugar once daily. 100 strip 3 09/08/2024 1:53 PM EDT 4 Active blood glucose diagnostic lancet 28 gaugeIndication s:Post-transpla nt diabetes mellitus (HCC) Use one daily 200 each 3 04/11/2024 4:08 AM EST 4 04/09/20 25 Active atorvastatin (LIPITOR) 10 mg tablet Take 1 tablet (10 mg total) by mouth once a day. 30 tablet 11 09/08/2024 1:53 PM EDT 4 04/11/20 25 Active cyanocobalamin (vitamin B-12) 1,000 mcg tablet Take 1 tablet (1,000 mcg total) by mouth daily. 90 tablet 3 07/29/2024 11:57 AM EDT 4 Active mirtazapine (REMERON) 15 mg tabletIndicatio ns:Other depression Take 1 tablet by mouth at bedtime 30 tablet 11 09/08/2024 1:53 PM EDT 4 Active terazosin (HYTRIN) 1 mg capsule TAKE 1 CAPSULE BY MOUTH AT BEDTIME NIGHTLY. 30 capsule 11 07/29/2024 11:57 AM EDT 4 05/09/20 25 Active sirolimus (RAPAMUNE) 0.5 mg tabletIndicatio ns:History of liver transplant (HCC) Take 1 tablet (0.5 mg total) by mouth daily. 30 tablet 11 09/08/2024 1:53 PM EDT 5 06/09/19 26 Active mycophenolate mofetil (CELLCEPT) 250 mg capsuleIndicati ons:Liver replaced by transplant (HCC) Take 1 capsule (250 mg total) by mouth 2 times a day. 60 capsule 11 08/25/2024 10:22 AM EDT 5 06/20/19 26 Active multivitamin (THERAGRAN) tablet TAKE ONE TABLET BY MOUTH DAILY 90 tablet 3 08/04/2024 6:56 AM EDT 5 06/20/19 26 Active tamsulosin (FLOMAX) 0.4 mg capsule Take 1 capsule (0.4 mg total) by mouth once a day. 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 B12 deficiency 07/17/2017 Subclinical hypothyroidism 04/23/2015 Drug [...] hepatitis C virus infection 10/29/2013 07/17/2019 Immunizations Immunization Administration Dates Next Due Covid-19, Pfizer, mRNA, Bell valent, PF 30 mcg/0.3 mL dose (for [...] Sign Reading Time Taken Comments Blood Pressure 131/75 06/26/2024 10:23 AM EST Pulse 89 06/26/2024 10:23 AM EST Temperature 37 ??C (98.6 ??F) 06/26/2024 10:23 AM EST Respiratory Rate 18 06/26/2024 10:23 AM EST Oxygen Saturation 95% 06/26/2024 10:23 AM EST Inhaled Oxygen Concentration - - Weight 97.3 kg (214 lb 8.1 oz) 06/26/2024 10:23 AM EST Height 185.4 cm (6' 1 ) 05/28/2024 2:51 PM EST Body Mass Index 28.3 05/28/2024 2:51 PM EST Plan of Treatment Upcoming Encounters Date Type Department Care Team (Late st Contact Info) Description 05/05/2025 8:30 AM EST Office Visit [facility] Diabetes [facility] [address] [place], [place] [phone] Emergency Generator Mechanic: Sandra Schaffer, Abraham Ellison MD [address] [place] [address] 06/29/2025 9:00 AM EST Follow-Up [facility] Liver Transplant Services [address] [place] [address] 55157 Herman Francis MD [address] [place] [address] 306[address] Procedures * Due to [place] state law, this organization might not be sharing negative HIV tests. Procedure Name Priority Date/Time Associated Diagnosis Comments LIVER POST EXTERNAL PANEL Routine 06/20/2024 9:16 AM EST COLONOSCOPY 05/28/2024 POCT GLYCOSYLATED HEMOGLOBIN (HGB A1C) Routine 05/05/2024 8:49 AM EST MICROALBUMIN, RANDOM URINE WITH CREATININE Routine 01/07/2024 8:57 AM EDT Post-transplant diabetes mellitus COMPREHENSIVE METABOLIC PANEL, OUTSIDE LAB Routine 12/27/2022 [...] to Health Maintenance Results * Due to [place] [employer] law, this organization might not be sharing negative HIV tests. * LIVER POST EXTERNAL PANEL (06/20/2024 9:16 AM EST) Sirolimus 3.4 [facility] Sodium 141 mmol/L [facility] Potassium 3.8 [facility] Chloride 110 [facility] Carbon Dioxide 22 [facility] Glucose 163 [facility] BUN 15 mg/dL [facility] Creatinine 1.46 mg/dL [facility] Calcium 8.7 mg/dL [facility] Total Protein 6.9 g/dL [facility] Albumin 3.9 g/dL [facility] Bilirubin, Total 0.4 mg/dL [facility] Alkaline Phosphatase 124 U/L [facility] AST 20 U/L [facility] ALT 28 U/L [facility] Magnesium 2.10 mg/dL [facility] WBC 5.6 10*3/uL [facility] Hgb 13.5 [facility] Hematocrit 38.8 % [facility] Platelets 130 10*3/uL [facility] 06/20/2024 9:16 AM EST us Herman Francis MD LAB BLOOD ORDERABLES Final Re sult [facility] [address] [place] [address] * COLONOSCOPY (05/28/2024) Narrative Procedure Note Herman Francis MD - 05/28/2024 2:56 PM EST [facility] Gastroenterology Patient Name: Nhan Rawls Procedure Date: 05/28/2024 2:56 PM Date of : 1960 Admit Type: Outpatient Age: 64 Room: [facility] 01 Gender: Male Note Status: Finalized Attending MD: [...] PROVATION PROCEDURES Final Re sult * (ABNORMAL) POCT Glycosylated Hemoglobin (HGB A1C), interfaced (05/05/2024 8:49 AM EST) Hemoglobin A1C, POCT 6.2(H) <=5.6 % 05/05/2024 9:03 AM EST [facility] Comment: A1C Recommendation for Non- Adults with Diabetes: <7.0% ADA 2011 Standards of Medical Care in Diabetes Blood 05/05/2024 8:49 AM EST 05/05/2024 9:03 AM EST us Edelmira Wang [facility] NURSE LAB POCT ORDERABLES - DEVICE F inal Result Performing Organization Address [facility] Co de Phone Number [facility] [address] [place] [address], [place] * Microalbumin, Random Urine with Creatinine (01/07/2024 8:57 AM EDT) Microalbumin, Urine 2.9 mg/dL 01/07/2024 10:08 AM EDT [facility] Creatinine, Urine 211 22 - 328 mg/dL 01/07/2024 10:08 AM EDT [facility] Microalb/Creat Ratio, Random Urine 13.7 <30.0 mcg/mgCr 01/07/2024 10:08 AM EDT [facility] Comment: Microalbumin Reference Range: Normal ? <30 mcg/mg Creatinine Microalbuminuria ? 30-300 mcg/mg Creatinine Clinical Albuminuria >300 mcg/mg Creatinine Reference: ADA Guideline. Diabetes Care. 2004;27 (suppl 1) Urine Voided urine specimen / Unknown Non-Blood Collection / Unknown 01/07/2024 8:57 AM EDT 01/07/2024 9:29 AM EDT us Abraham Schaffer MD LAB URINE ORDERABLES Final R esult Performing Organization Address City/[facility]/ZIP Co de Phone Number [facility] [address] [place] [address], [place] * Comprehensive Metabolic Panel, Outside Lab (12/27/2022 9:59 AM EDT) Sodium 143 mmol/L [facility] Potassium 4.8 [facility] Chloride 108 [facility] Carbon Dioxide 26 [facility] Glucose 184 [facility] BUN 17 mg/dL [facility] Creatinine 1.95 mg/dL [facility] Calcium 9.5 mg/dL [facility] Total Protein 7.1 g/dL [facility] Albumin 4.1 g/dL [facility] Bilirubin, Total 0.5 mg/dL [facility] Alkaline Phosphatase 125 U/L [facility] AST 14 U/L [facility] ALT 17 U/L [facility] Blood Structure of peripheral vein / Unknown 12/27/2022 9:59 AM EDT us Herman Francis MD LAB BLOOD ORDERABLES Edited R esult - Final Performing Organization Address City/[facility]/ZIP Co de Phone Number [facility] [address] [place] [phone] * HCV PCR QUAL, OUTSIDE LAB (06/08/2015 12:01 AM EST) HCV PCR Qual Not Detected [facility] 06/08/2015 12:0 1 AM EST us Historical Conversion Provider LAB BLOOD ORDERAB LES Final Result Performing Organization Address [facility]/ZIP Co de Phone Number [facility] [address] [place] [address] * Vitamin D, 25-Hydroxy, Total, Immunoassay (04/03/2013 9:11 AM EST) Vitamin D 25 Oh 33 30 - 100 ng/mL [facility] Comment: Vitamin D Status 25-OH Vitamin D Deficiency: <10 ng/mL Insufficiency: 10-29 ng/mL Sufficiency: 30-100 ng/mL Toxicity: >100 ng/mL 04/03/2013 9:11 AM EST 04/03/2013 9:43 AM EST us Blaine Nava MD LAB BLOOD ORDERABLES Final Result Performing Organization Address City/[facility]/ZIP Co de Phone Number [facility] [address] [place] [address], [place] * Phosphorus (04/03/2013 9:11 AM EST) Phosphorus Blood 3.6 2.5 - 4.5 mg/dL [facility] 04/03/2013 9:11 AM EST 04/03/2013 9:39 AM EST us Blaine Nava MD LAB BLOOD ORDERABLES Final Result [facility] [address] [place] [address], * PTH, Intact (without Calcium) (04/03/2013 9:11 AM EST) Parathyroid Intact 24 12 - 65 pg/mL [facility] 04/03/2013 9:11 AM EST 04/03/2013 9:43 AM EST us Blaine Nava MD LAB BLOOD ORDERABLES Final Result [facility] [address] [place] [address], * HIV-1/2 Antigen/Antibodies 4th Generation w/Reflex (01/07/2013 4:27 AM EDT) HIV 1,2 Ab/Ag Stat NEGATIVE NEGATIVE [facility] 01/07/2013 4:27 AM EDT 01/07/2013 8:30 AM EDT us Cedric Lopez MD LAB BLOOD ORDERABLES Final Re sult [facility] [address] [place] [address] from Last 3 Months or Most Recently Relevant to Health Maintenance Additional Health Concerns Infection Onset 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 Insurance MEDICARE [facility] Advance Directives Documents on File Type Date Recorded Patient Otolaryngology Nurse Expl [facility] Health Care Proxy 12/06/2012 12:00 AM 11/18 * Full Code (Latest Code Status on File) Date Activated Date Inactivated Comments 05/28/2024 3:42 PM 06/02/2024 10:22 AM * Full Code Date Activated Date Inactivated Comments 08/22/2023 10:17 AM 08/22/2023 4:27 PM Care Teams Pick Up Attendant Relationship Specialty Start Date End Date Nikhil Parisi [address] [place] [address] [place] [address] PCP - General 12/07/16
--- OUTSIDE RECORDS SUMMARY | 2024-09-12 13:12 | XMS_ITS | Encounter Summary ---
Author Organization [facility] Address [address] [place] [address] Care Team Providers Care Beaver Trapper Name Role Phone Nikhil Parisi Primary Care Provider [phone] Encounter Details Date Type Department Care Team (Late st Contact Info) Description 08/27/2016 Orders Only [facility] Building [address] [place] [address] Blaine Nava MD [address] [place] [address] 91770 Social History Tobacco Use Types Packs/Day Years [...] Description 05/05/2025 8:30 AM EST Office Visit [facility] Diabetes Clinic [address] [place] [address] 17563 Coupon Collection Clerk: Sandra Schaffer, Abraham Ellison MD [address] [place] [address] 960[address] 06/29/2025 9:00 AM EST Follow-Up [facility] Liver Transplant Services [address] [place] [address] 13890 Herman Francis MD [address] [place] [address] 89275 documented as of this encounter Visit Diagnoses Not on filedocumented in this encounter Additional Health Concerns Infection Onset Date Last Indicated Resolved Time 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
--- OUTSIDE RECORDS SUMMARY | 2024-09-12 13:12 | XMS_ITS | Encounter Summary ---
Author Organization [facility] Address [address] [place] [address] Care Team Providers Care Associate Programmer Name Role Phone Nikhil Parisi Primary Care Provider [phone] Encounter Details Date Type Department Care Team (Late st Contact Info) Description 05/29/2016 Orders Only [facility] Building [address] [place] [address] 47[address] Adelfo Garzon MD [address] [place] [address]207 Social History Tobacco Use Types Packs/Day Years [...] Description 05/05/2025 8:30 AM EST Office Visit [facility] Building Diabetes Clinic [address] [place] [address]25 Sewer System Supervisor: Sandra Schaffer, Abraham Ellison MD [address] [place] [address] 06/29/2025 9:00 AM EST Follow-Up [facility] Liver Transplant Services [address] [place] [address] 03144 Herman Francis MD [address] [place] [address] 53880 documented as of this encounter Visit Diagnoses Not on filedocumented in this encounter Additional Health Concerns Infection Onset Date Last Indicated Resolved Time 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
--- OUTSIDE RECORDS SUMMARY | 2024-09-12 13:12 | XMS_ITS | Encounter Summary ---
Author Organization [facility] Address [address] [place] [address] Care Team Providers Care Daycare Manager Name Role Phone Nikhil Parisi Primary Care Provider [phone] Encounter Details Date Type Department Care Team (Late st Contact Info) Description 02/04/2016 Orders Only [facility] Building [address] [place] [address] 89[address] Adelfo Garzon MD [address] [place] [address] 0[address]14 Social History Tobacco Use Types Packs/Day Years [...] Description 05/05/2025 8:30 AM EST Office Visit [facility] Building Diabetes Clinic [address] [place] [address] 06970 Screen Printer: Sandra Schaffer, Abraham Ellison MD [address] [place] [address] 06/29/2025 9:00 AM EST Follow-Up [facility] Liver Transplant Services [address] [place] [address] 98039 Herman Francis MD [address] [place] [address] 75676 documented as of this encounter Visit Diagnoses Not on filedocumented in this encounter Additional Health Concerns Infection Onset Date Last Indicated Resolved Time 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
--- OUTSIDE RECORDS SUMMARY | 2024-09-12 13:12 | XMS_ITS | Encounter Summary ---
Author Organization [facility] Address [address] [place] [address] Care Team Providers Care Can Handler Name Role Phone Nikhil Parisi Primary Care Provider [phone] Encounter Details Date Type Department Care Team (Late st Contact Info) Description 02/14/2016 Orders Only [facility] Building [address] [place] [address]67[address] Blaine Nava MD [address] [place] [address] 76020 Social History Tobacco Use Types Packs/Day Years [...] Description 05/05/2025 8:30 AM EST Office Visit [facility] Diabetes Clinic [address] [place] [address] 24886 Crawler Dragline Operator: Sandra Schaffer, Abraham Ellison MD [address] [place] [address] 10261 06/29/2025 9:00 AM EST Follow-Up [facility] Liver Transplant Services [address] [place] [address]195 Herman Francis MD [address] [place] [address] 32184 documented as of this encounter Visit Diagnoses Not on filedocumented in this encounter Additional Health Concerns Infection Onset Date Last Indicated Resolved Time 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
--- OUTSIDE RECORDS SUMMARY | 2024-09-12 13:12 | XMS_ITS | Encounter Summary ---
Author Organization [facility] Address [address] [place] [address] Care Team Providers Care Propagator Laborer Name Role Phone Nikhil Parisi Primary Care Provider [phone] Encounter Details Date Type Department Care Team (Late st Contact Info) Description 10/30/2016 Orders Only [facility] Building [address] [place] [address] Adelfo Garzon MD [address] [place] [address] 52095 Social History Tobacco Use Types Packs/Day Years [...] Description 05/05/2025 8:30 AM EST Office Visit [facility] Building Diabetes Clinic [address] [place] [address] 89098 Lead Injection Mold Technician: Sandra Schaffer, Abraham Ellison MD [address] [place] [address] 06/29/2025 9:00 AM EST Follow-Up [facility] Liver Transplant Services [address] [place] [address] 41147 Herman Francis MD [address] [place] [address] 73762 documented as of this encounter Visit Diagnoses Not on filedocumented in this encounter Additional Health Concerns Infection Onset Date Last Indicated Resolved Time 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
--- OUTSIDE RECORDS SUMMARY | 2024-09-12 13:12 | XMS_ITS | Encounter Summary ---
Author Organization [facility] Address [address] [place] [address] Care Team Providers Care Merchandise For Resale Purchasing Agent Name Role Phone Nikhil Parisi Primary Care Provider Encounter Details Date Type Department Care Team (Late st Contact Info) Description 07/28/2016 Orders Only [facility] Building [address] [place] [address] Patito Carpenter MD [address] [place] [address] Social History Tobacco Use Types Packs/Day Years [...] Description 05/05/2025 8:30 AM EST Office Visit [facility] Building Diabetes Clinic [address] [place] [address] 10205 Painter And Body Mechanic Apprentice: Sandra Schaffer, Abraham Ellison MD [address] [place] [address] 06/29/2025 9:00 AM EST Follow-Up [facility] Liver Transplant Services [address] [place] [address]695 Herman Francis MD [address] [place] [address] 16066 documented as of this encounter Visit Diagnoses Not on filedocumented in this encounter Additional Health Concerns Infection Onset Date Last Indicated Resolved Time 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
--- OUTSIDE RECORDS SUMMARY | 2024-09-12 13:12 | XMS_ITS | Encounter Summary ---
Author Organization [facility] Address [address] [place] [address] Care Team Providers Care Process Environmental Technician Name Role Phone Nikhil Parisi Primary Care Provider [phone] Encounter Details Date Type Department Care Team (Late st Contact Info) Description 12/15/2015 Orders Only [facility] Building [address] [place] [address] David Bowie MD [address] [place] [address] Endocrinology [place] [address] Social History Tobacco Use Types Packs/Day Years [...] 05/05/2025 8:30 AM EST Office Visit [facility] Building Diabetes Clinic [address] [place] [address] 95768 Dinkey Motor Operator: Sandra Schaffer, Abraham Ellison MD [address] [place] [address] 06/29/2025 9:00 AM EST Follow-Up [facility] Liver Transplant Services [address] [place] [address]70 Herman Francis MD [address] [place] [address] 82632 documented as of this encounter Visit Diagnoses Not on filedocumented in this encounter Additional Health Concerns Infection Onset Date Last Indicated Resolved Time 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
--- OUTSIDE RECORDS SUMMARY | 2024-09-12 13:12 | XMS_ITS | Clinical Summary ---
Author Organization [facility] Address [address] [place] [address] Care Team Providers Care Electrolytic De Scaler Name Role Phone Nikhil Parisi Primary Care Provider [phone] Allergies No known active allergies Medications dulaglutide [...] Type Department Care Team Description 07/18/2024 Refill [facility] [address] [place] [address] Family Law Attorney: Herman Xie MD 06/26/2024 10:30 AM EST Follow-Up [facility] Liver Transplant Services [address] [place] [address] Herman Francis MD Other cirrhosis of liver (Primary Dx); Encounter for immunosuppression management after liver transplant 06/23/2024 Abstract [facility] Transplant Department [address] [place] [address] Herman Francis MD 06/20/2024 Refill [facility] Liver Transplant Services [address] [place] [address] Herman Francis MD Liver replaced by transplant from Last 3 Months Immunizations Immunization Administration Dates Next Due Covid-19, Pfizer, mRNA, [place] valent, PF 30 mcg/0.3 mL dose (for [...] Description 05/05/2025 8:30 AM EST Office Visit [facility] Building Diabetes Clinic [address] [place] [address] Family Law Attorney: Sandra Schaffer, Abraham Ellison MD [address] [place] [address] 06/29/2025 9:00 AM EST Follow-Up [facility] Liver Transplant Services [address] [place] [address] Herman Francis MD [address] [place] [address] Health Maintenance Due Date Last Done Comments Cologuard 1960 FOBT / Fit Test 1960 Sigmoidoscopy 1960 Medicare AWV 1961 Pneumococcal Vaccine: 50+ Ye ars (1 of 2 - PCV) 02/22/1980 Zoster Vaccines (1 of 2) 02/22/1980 DTaP,Tdap,and [...] 2023-2 5 season) 2024 04/01/2021, 09/28/2020, 09/07/2020 Alcohol/Substance Use Screening 05/21/2024 Depression Screening and Follow-Up 05/21/2024 Social [employer] Diane ual Screening 05/21/2024 Hemoglobin A1C 11/03/2024 05/05/2024, 12/19, 05/03/2023, Additional history exists Urine Microalbumin 01/06/2025 01/07/2024, 0 12/19/2022, 10/10/2021, Additional history exists Influenza Vaccine (Season Ended) 2025 Hemoglobin 06/20/2025 06/20/2024, 1110/2023, 01/10/2024, Additional history exists Colon Cancer Screening 05/28/2034 Colonoscopy 05/28/2034 05/28/2024, 12/2024, 08/22/2023, Additional history exists Tobacco Screening 05/21/2042 06/26/2024 HIV Screening Completed 01/07/2013, 12/06/2012 Hepatitis C Screening Completed 06/08/2015 , 05/10/2015, 03/15/2015, Additional history exists Statin Therapy Completed 04/11/2024 Procedures * Due to [place] state law, this organization might not be [...] to Health Maintenance Results * Due to [place] state law, this organization might not be sharing negative HIV tests. * LIVER POST EXTERNAL PANEL (06/20/2024 9:16 AM EST) Sirolimus 3.4 [facility] Sodium 141 mmol/L [facility] Potassium 3.8 [facility] Chloride 110 [facility] Carbon Dioxide 22 [facility] Glucose 163 [facility] BUN 15 mg/dL [facility] Creatinine 1.46 mg/dL [facility] Calcium 8.7 mg/dL [facility] Total Protein 6.9 g/dL [facility] Albumin 3.9 g/dL [facility] Bilirubin, Total 0.4 mg/dL [facility] Alkaline Phosphatase 124 U/L [facility] AST 20 U/L [facility] ALT 28 U/L [facility] Magnesium 2.10 mg/dL [facility] WBC 5.6 10*3/uL [facility] Hgb 13.5 [facility] Hematocrit 38.8 % [facility] Platelets 130 10*3/uL [facility] 06/20/2024 9:16 AM EST us Herman Francis MD LAB BLOOD ORDERABLES Final Re sult [facility] [address] [place] [address] * COLONOSCOPY (05/28/2024) Narrative Procedure Note Herman Francis MD - 05/28/2024 2:56 PM EST [facility] Gastroenterology Patient Name: Nhan Rawls Procedure Date: 05/28/2024 2:56 PM Date of : 1960 Admit Type: Outpatient Age: 64 Room: [facility] Gender: Male Note Status: Finalized Attending MD: [...] 6.2(H) <=5.6 % 05/05/2024 9:03 AM EST [facility] Comment: A1C Recommendation for Non- Adults with Diabetes: <7.0% ADA 2011 Standards of Medical Care in Diabetes Blood 05/05/2024 8:49 AM EST 05/05/2024 9:03 AM EST Edelmira Shah LAB POCT ORDERABLES - DEVICE F inal Result [facility] [address] [place] [address], [place] * Microalbumin, Random Urine with Creatinine (01/07/2024 8:57 AM EDT) Microalbumin, Urine 2.9 mg/dL 01/07/2024 10:08 AM EDT [facility] Creatinine, Urine 211 22 - 328 mg/dL 01/07/2024 10:08 AM EDT [facility] Microalb/Creat Ratio, Random Urine 13.7 <30.0 mcg/mgCr 01/07/2024 10:08 AM EDT [facility] Comment: Microalbumin Reference Range: Normal ? <30 mcg/mg Creatinine Microalbuminuria ? 30-300 mcg/mg Creatinine Clinical Albuminuria >300 mcg/mg Creatinine Reference: ADA Guideline. Diabetes Care. 2004;27 (suppl 1) Urine Voided urine specimen / Unknown Non-Blood Collection / Unknown 01/07/2024 8:57 AM EDT 01/07/2024 9:29 AM EDT us Abraham Schaffer MD LAB URINE ORDERABLES Final R esult [facility] [address] [place] [address], [place] * Comprehensive Metabolic Panel, Outside Lab (12/27/2022 9:59 AM EDT) Sodium 143 mmol/L [facility] Potassium 4.8 [facility] Chloride 108 [facility] Carbon Dioxide 26 [facility] Glucose 184 [facility] BUN 17 mg/dL [facility] Creatinine 1.95 mg/dL [facility] Calcium 9.5 mg/dL [facility] Total Protein 7.1 g/dL [facility] Albumin 4.1 g/dL [facility] Bilirubin, Total 0.5 mg/dL [facility] Alkaline Phosphatase 125 U/L [facility] AST 14 U/L [facility] ALT 17 U/L [facility] Blood Structure of peripheral vein / Unknown 12/27/2022 9:59 AM EDT Herman Francis MD LAB BLOOD ORDERABLES Edited R esult - Final Performing Organization Address [facility]/ZIP Co de Phone Number [facility] [address] [place] [address] * HCV PCR QUAL, OUTSIDE LAB (06/08/2015 12:01 AM EST) Pathologist [facility] HCV PCR Qual Not Detected [facility] 06/08/2015 12:0 1 AM EST Historical Conversion Provider LAB BLOOD ORDERAB LES Final Result Performing Organization Address [facility]/ZIP Co de Phone Number [facility] [address], [place] [phone] * Vitamin D, 25-Hydroxy, Total, Immunoassay (04/03/2013 9:11 AM EST) Vitamin D 25 Oh 33 30 - 100 ng/mL [facility] Comment: Vitamin D Status 25-OH Vitamin D Deficiency: <10 ng/mL Insufficiency: 10-29 ng/mL Sufficiency: 30-100 ng/mL Toxicity: >100 ng/mL 04/03/2013 9:11 AM EST 04/03/2013 9:43 AM EST us Blaine Nava MD LAB BLOOD ORDERABLES Final Result Performing Organization Address [facility]/ZIP Co de Phone Number [facility] [address] [place] [address], [place] * Phosphorus (04/03/2013 9:11 AM EST) Phosphorus Blood 3.6 2.5 - 4.5 mg/dL [facility] 04/03/2013 9:11 AM EST 04/03/2013 9:39 AM EST us Blaine Nava MD LAB BLOOD ORDERABLES Final Result Performing Organization Address [facility] Co de Phone Number [facility] [address] [place] [address], [place] * PTH, Intact (without Calcium) (04/03/2013 9:11 AM EST) Parathyroid Intact 24 12 - 65 pg/mL [facility] 04/03/2013 9:11 AM EST 04/03/2013 9:43 AM EST us Blaine Nava MD LAB BLOOD ORDERABLES Final Result Performing Organization Address [facility] Co de Phone Number [facility] [address] [place] [address], [place] * HIV-1/2 Antigen/Antibodies 4th Generation w/Reflex (01/07/2013 4:27 AM EDT) HIV 1,2 Ab/Ag Stat NEGATIVE NEGATIVE [facility] 01/07/2013 4:27 AM EDT 01/07/2013 8:30 AM EDT us Cedric Lopez MD LAB BLOOD ORDERABLES Final Re sult [facility] [address] [place] [address], from Last 3 Months or Most Recently Relevant to Health Maintenance 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
--- OUTSIDE RECORDS SUMMARY | 2024-09-12 13:12 | XMS_ITS | Encounter Summary ---
Author Organization [facility] Address [address] [place] [address] Care Team Providers Care Lining Stamper Name Role Phone Nikhil Parisi Primary Care Provider [phone] Encounter Details Date Type Department Care Team (Late st Contact Info) Description 08/21/2016 Orders Only [facility] Specialty Pharmacy [facility] Building [address] [place] [address] Adelfo Garzon MD [address] [place] [address] Social History Tobacco Use Types Packs/Day Years [...] Office Visit [facility] Building Diabetes Clinic [address] [place] [address] Layer Out: Sandra Schaffer, Abraham Ellison MD [address] [place] [address] 06/29/2025 9:00 AM EST Follow-Up [facility] Liver Transplant Services [address] [place] [address] Herman Francis MD [address] [place] [address] documented as of this encounter Visit Diagnoses Not on filedocumented in this encounter Additional Health Concerns Infection Onset Date Last Indicated 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
--- OUTSIDE RECORDS SUMMARY | 2024-09-12 13:12 | XMS_ITS | Encounter Summary ---
Author Organization [facility] Address [address] [place] [address] Care Team Providers Care Pig Machine Operator Name Role Phone Nikhil Parisi Primary Care Provider [phone] Encounter Details Date Type Department Care Team (Late st Contact Info) Description 07/04/2016 Orders Only [facility] Specialty Pharm[facility] Building [address] [place] [address] Blaine Nava MD [address] [place] [address] Social History Tobacco Use Types Packs/Day Years [...] Description 05/05/2025 8:30 AM EST Office Visit [facility] Diabetes Clinic [address] [place] [address] Seat Nailer: Sandra Schaffer, Abraham Ellison MD [address] [place] [address] 06/29/2025 9:00 AM EST Follow-Up [facility] Liver Transplant Services [address] [place] [address] Herman Francis MD [address] [place] [address] documented as of this encounter Visit Diagnoses Not on filedocumented in this encounter Additional Health Concerns Infection Onset Date 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
--- OUTSIDE RECORDS SUMMARY | 2024-09-12 13:12 | XMS_ITS | Encounter Summary ---
Author Organization [facility] Address [address] [place] [address] Care Team Providers Care Student Officer Name Role Phone Nikhil Parisi Primary Care Provider [phone] Encounter Details Date Type Department Care Team (Late st Contact Info) Description 01/08/2017 Orders Only [facility] Specialty Pharm[facility] Building [address] [place] [address] David Bowie MD [address] [place] [address] Endocrin[place] [address] Social History Tobacco Use Types Packs/Day Years [...] Description 05/05/2025 8:30 AM EST Office Visit [facility] Building Diabetes Clinic [address] [place] [address] Chemical Cell Changer: Sandra Schaffer, Abraham Ellison MD [address] [place] [address] 06/29/2025 9:00 AM EST Follow-Up 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
--- OUTSIDE RECORDS SUMMARY | 2024-09-12 13:12 | XMS_ITS | Encounter Summary ---
Author Organization [facility] Address [address] [place] [address] Care Team Providers Care Boarder Hand Name Role Phone Nikhil Parisi Primary Care Provider [phone] Encounter Details Date Type Department Care Team (Late st Contact Info) Description 11/14/2016 Orders Only [facility] Specialty Pharm[facility] Building [address] [place] [address] Blaine Nava MD [address] [place] [address] Social History Tobacco Use Types Packs/Day Years [...] Description 05/05/2025 8:30 AM EST Office Visit [facility] Diabetes Clinic [address] [place] [address] Senior Python Developer: Sandra Schaffer, Abraham Ellison MD [address] [place] [address] 06/29/2025 9:00 AM EST Follow-Up [facility] Liver Transplant Services [address] [place] [address] Herman Francis MD [address] [place] [address] documented as of this encounter Visit Diagnoses Not on filedocumented in this encounter Additional Health Concerns Infection Onset Date Last Indicated Resolved Time 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
--- OUTSIDE RECORDS SUMMARY | 2024-09-12 13:12 | XMS_ITS | Encounter Summary ---
Author Organization [facility] Address [address] [place] [address] Care Team Providers Care Kraft Digester Operator Name Role Phone Nikhil Parisi Primary Care Provider [phone] Encounter Details Date Type Department Care Team (Late st Contact Info) Description 05/22/2024 Apostrophe Appshart Message [facility] Endoscopy [address] [place] [address] Mychart, Generic Provider [facility] [place] [phone] Important medication hold for procedure with Dr. 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
--- OUTSIDE RECORDS SUMMARY | 2024-09-12 13:12 | XMS_ITS | Encounter Summary ---
Author Organization [facility] Address [address] [place] [address] Care Team Providers Care Measurement Analyst Name Role Phone Nikhil Parisi Primary Care Provider [phone] Encounter Details Date Type Department Care Team (Late st Contact Info) Description 01/17/2016 Orders Only [facility] Specialty Pharmacy [facility] Building [address] [place] [address] Vangie Epstein Social History Tobacco Use Types [...] Description 05/05/2025 8:30 AM EST Office Visit [facility] Diabetes Clinic [address] [place] [address] Trimming Assembler: Sandra Schaffer, Abraham Ellison MD [address] [place] [address] 06/29/2025 9:00 AM EST Follow-Up [facility] Liver Transplant Services [address] [place] [address] Herman Francis MD [address] [place] [address] documented as of this encounter Visit Diagnoses Not on filedocumented in this encounter Additional Health Concerns Infection Onset Date Last Indicated Resolved Time 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
--- OUTSIDE RECORDS SUMMARY | 2024-09-12 13:12 | XMS_ITS ---
Author Organization [facility] Address [address] [place] [address] Care Team Providers Care Superintendent Maintenance Name Role Phone Nikhil Parisi Primary Care Provider [phone] Transplant Episode Liver Recipient [facility] ([place], [place]) - [facility] Organ Received: Liver Transplanted on 12/24/2012 Marked as Active Follow-up on 12/24/2012 Liver CoordinatorQing Christianson RN Phone: N/A Fax: N/A Email: N/A [facility] Organ Diagnosis Organ Primary Contributory Liver Alcoholic [...] Coordinator N/A N/A N/A Herman Francis MD Operations Plant Attendant [phone] [email or web address] Nikhil Parisi Referring Physician [phone] N/A Events Post-Transplant Pre-Transplant Admitted: 12/05/2012 Referred: 11/18/2012 Transplanted: 12/24/2012 Evaluation began: 3 Discharged: 01/10/2013 Committee: 12/06/2012 Center waitlisted: 3
--- OUTSIDE RECORDS SUMMARY | 2024-09-12 13:12 | XMS_ITS | Encounter Summary ---
Author Organization [facility] Address [address] [place] [address] Care Team Providers Care Critical Care Nurse Practitioner Name Role Phone Nikhil Parisi Primary Care Provider [phone] Encounter Details Date Type Department Care Team (Late st Contact Info) Description 06/28/2016 Orders Only [facility] Specialty Pharmacy [facility] Building [address] [place] [address] Blaine Nava MD [address] [place] [address] Social History Tobacco Use Types Packs/Day Years [...] Description 05/05/2025 8:30 AM EST Office Visit [facility] Diabetes Clinic [address] [place] [address] Global Creative Chairman: Sandra Schaffer, Abraham Ellison MD [address] [place] [address] 06/29/2025 9:00 AM EST Follow-Up [facility] Liver Transplant Services [address] [place] [address] Herman Francis MD [address] [place] [address] documented as of this encounter Visit Diagnoses Not on filedocumented in this encounter Additional Health Concerns Infection Onset Date Last Indicated Resolved Time 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
--- OUTSIDE RECORDS SUMMARY | 2024-09-12 13:12 | XMS_ITS | Encounter Summary ---
Author Organization [facility] Address [address] [place] [address] Care Team Providers Care Art Instructor Name Role Phone Nikhil Parisi Primary Care Provider [phone] Encounter Details Date Type Department Care Team (Late st Contact Info) Description 2017 Transplant Conversio n Encounter [facility] Health Information Management [address] [place] [address] Provider, Historical Conversion [place] Social History Tobacco Use Types Packs/Day Years [...] Description 05/05/2025 8:30 AM EST Office Visit [facility] Building Diabetes Clinic [address] [place] [address] Plug Machine Operator: Sandra Schaffer, Abraham Ellison MD [address] [place] [address] 06/29/2025 9:00 AM EST Follow-Up [facility] Liver Transplant Services [address] [place] [address] Herman Francis MD [address] [place] [address] documented as of this encounter Visit Diagnoses Not on filedocumented in this encounter Additional Health Concerns Infection Onset Date Last Indicated Resolved Time 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
--- OUTSIDE RECORDS SUMMARY | 2024-09-12 13:12 | XMS_ITS | Encounter Summary ---
Author Organization [facility] Address [address] [place] [address] Care Team Providers Care Performing Artist Name Role Phone Nikhil Parisi Primary Care Provider [phone] Encounter Details Date Type Department Care Team (Late st Contact Info) Description 07/03/2016 Orders Only [facility] Building [address] [place] [address] Vangie Epstein Social History Tobacco Use Types [...] EST Office Visit [facility] [address] [place] [address] Head Up Operator: Sandra Schaffer, Abraham Ellison MD [address] [place] [address] 06/29/2025 9:00 AM EST Follow-Up [facility] Liver Transplant Services [address] [place] [address] Herman Francis MD [address] [place] [address] documented as of this encounter Visit Diagnoses Not on filedocumented in this encounter Additional Health Concerns Infection Onset Date Last Indicated Resolved Time 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
--- OUTSIDE RECORDS SUMMARY | 2024-09-12 13:12 | XMS_ITS | Encounter Summary ---
Author Organization [facility] Address [address] [place] [address] Care Team Providers Care Professional Nurse Name Role Phone Nikhil Parisi Primary Care Provider [phone] Encounter Details Date Type Department Care Team (Late st Contact Info) Description 08/24/2016 Orders Only [facility] Building [address] [place] [address] Vangie Epstein Social History Tobacco Use Types [...] Office Visit [facility] [address] [place] [address] Logistics Supervisor: Sandra Schaffer, Abraham Ellison MD [address] [place] [address] 06/29/2025 9:00 AM EST Follow-Up [facility] Liver Transplant Services [address] [place] [address] Herman Francis MD [address] [place] [address] documented as of this encounter Visit Diagnoses Not on filedocumented in this encounter Additional Health Concerns Infection Onset Date Last Indicated Resolved Time 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
[2024-09-12 13:38] LABS: Basophils Percent Auto 0.3 % (0-2); Eosinophils Absolute Auto 0.1 X10*3/uL (0.0-0.4); Eosinophils Percent Auto 1.2 % (0-4); Hematocrit 38.7 % (42.0-52.0); Hemoglobin 13.4 g/dl (14.0-18.0); Imm Gran Abs Auto 0.02 X10*3/uL (0.00-0.03); Imm Gran Pct Auto 0.3 % (0.0-0.4); Lymphocytes Absolute Auto 1.4 X10*3/uL (1.2-4.9); Lymphocytes Percent Auto 23.3 % (20-40); Mean Corpuscular HGB Conc 34.6 g/dl (31.0-36.0); Mean Corpuscular Hemoglobin 29.3 pg (27.0-33.0); Mean Corpuscular Volume 84.7 fL (80.0-98.0); Mean Platelet Volume 10.9 fL (9.4-12.4); Monocytes Absolute Auto 0.4 X10*3/uL (0.1-1.2); Monocytes Percent Auto 7.6 % (2-11); Neutrophils Absolute Auto 3.9 x10*3/uL (2.0-8.3); Neutrophils Percent Auto 67.3 % (45-73); Platelet Count 153 X10*3/uL (160-400); Red Blood Count 4.57 X10*6/uL (4.60-5.80); Red Cell Distribution Width 12.8 % (11.0-16.0); White Blood Count 5.8 X10*3/uL (4.8-10.8)
[2024-09-12 14:02] LABS: Alanine Aminotransferase 20 U/L (0-40); Albumin Level 4.2 g/dL (3.5-5.0); Alkaline Phosphatase 125 U/L (39-117); Anion Gap 10 (12-20); Aspartate Amino Transferase 22 U/L (5-37); Bilirubin Total 0.5 mg/dL (0.0-1.0); Blood Urea Nitrogen 13 mg/dL (9-16); Carbon Dioxide 23 mmol/L (22-29); Chloride 109 mmol/L (96-108); Estimated Glomerular Filt Rate 54; Glucose Random 138 mg/dL (60-115); Magnesium 1.9 mg/dL (1.6-2.6); Potassium 4.3 mmol/L (3.3-5.1); Sodium 138 mmol/L (135-145); Total Protein 6.8 g/dL (6.5-8.0)
[2024-09-13 12:18] LABS: Sirolimus 2.3 ng/mL (3.0-18.0)
== END 2024-09-12 12:28 | disposition home or self-care (01) ==
LOC: HO.LABR 12:27
PROVIDERS: Visit Provider Internal Medicine
DX: Z94.4 Liver transplant status (principal); Z79.899 Other long term (current) drug therapy
CPT/HCPCS: 36415; 80053; 80195; 83735; 85025

== ENCOUNTER 2024-12-05 08:53 | Outpatient (REF) | payer MEDICARE, MEDICAID, SELFPAY ==
--- OUTSIDE RECORDS SUMMARY | 2024-12-05 08:56 | XMS_ITS | Referral Summary ---
Author Organization [facility] Address [address] [place] [address] Care Team Providers Care Underwriter Mortgage Loan Name Role Phone Nikhil Parisi Primary Care Provider [phone] Encounters Date Type Department Care Team Description 11/18/2024 Refill [facility] [address] [place] [phone] Carpet Inspector: Edelmira Martinez GROUP FITNESS DEPARTMENT HEAD Post-transplant diabetes mellitus (HCC) 11/14/2024 Refill [facility] Endocrinology Clinic [address] [place] [phone] Carpet Inspector: Sandra Schaffer, Abraham Ellison MD Post-transplant diabetes mellitus (HCC) 11/10/2024 Orders Only [facility] Transplant Department [address] [place] [address] Qing Christianson, [place] Encounter for immunosuppression management after liver transplant (HCC) (Primary Dx); Liver replaced by transplant (HCC) 10/02/2024 Refill [facility] Liver Transplant Services [address] [place] [address] Adelfo Garzon MD 09/15/2024 Abstract [facility] Transplant Department [address] [place] [address] Herman Francis MD from Last 3 Months Allergies No known active allergies Medications amLODIPine (NORVASC) 10 mg tablet Take 1 tablet (10 mg total) by mouth daily. 90 tablet 3 09/22/2024 1:19 PM EDT 4 01/25/20 25 Active metoprolol tartrate (LOPRESSOR) 25 mg tabletIndicatio ns:History of liver transplant (HCC) TAKE ONE TABLET BY MOUTH TWO TIMES A DAY 60 tablet 11 12/01/2024 11:05 AM EDT 4 01/25/20 25 Active Freestyle Lite test stripsIndicatio ns:Post-transpl ant diabetes mellitus (HCC) Use to test blood sugar once daily. 100 strip 3 11/03/2024 3:48 PM EDT 4 Active blood glucose diagnostic lancet 28 gaugeIndication s:Post-transpla nt diabetes mellitus (HCC) Use one daily 200 each 3 04/11/2024 4:08 AM EST 4 04/09/20 25 Active atorvastatin (LIPITOR) 10 mg tablet Take 1 tablet (10 mg total) by mouth once a day. 30 tablet 11 12/01/2024 11:05 AM EDT 4 04/11/20 25 Active cyanocobalamin (vitamin B-12) 1,000 mcg tablet Take 1 tablet (1,000 mcg total) by mouth daily. 90 tablet 3 11/03/2024 3:48 PM EDT 4 Active mirtazapine (REMERON) 15 mg tabletIndicatio ns:Other depression Take 1 tablet by mouth at bedtime 30 tablet 11 12/01/2024 11:05 AM EDT 4 Active terazosin (HYTRIN) 1 mg capsule TAKE 1 CAPSULE BY MOUTH AT BEDTIME NIGHTLY. 30 capsule 11 10/20/2024 1:31 PM EDT 4 05/09/20 25 Active sirolimus (RAPAMUNE) 0.5 mg tabletIndicatio ns:History of liver transplant (HCC) Take 1 tablet (0.5 mg total) by mouth daily. 30 tablet 12/01/2024 11:05 AM EDT 5 06/09/19 26 Active mycophenolate mofetil (CELLCEPT) 250 mg capsuleIndicati ons:Liver replaced by transplant (HCC) Take 1 capsule (250 mg total) by mouth 2 times a day. 60 capsule 11 11/17/2024 2:53 PM EDT 5 06/20/19 26 Active multivitamin (THERAGRAN) tablet TAKE ONE TABLET BY MOUTH DAILY 90 tablet 3 11/03/2024 3:48 PM EDT 5 06/20/19 26 Active tamsulosin (FLOMAX) 0.4 mg capsule Take 1 capsule (0.4 mg total) by mouth once a day. 30 capsule 5 12/01/2024 11:05 AM EDT 5 07/18/19 26 Active busPIRone (BUSPAR) 15 mg tablet Take 1 tablet (15 mg total) by mouth every morning AND 2 tablets (30 mg total) every evening. 90 tablet 12/01/2024 11:05 AM EDT Active dulaglutide (Trulicity) 1.5 mg/0.5 mL injection doseIndications :Post-transplan t diabetes mellitus (HCC) Inject 0.5 mL (1.5 mg total) under the skin once a week. 2 mL 5 11/19/19 Active buPROPion SR (WELLBUTRIN SR) 100 mg [...] Administration Dates Next Due Covid-19, Pfizer, mRNA, [place] valent, PF 30 mcg/0.3 mL dose (for [...] 89 06/26/2024 10:23 AM EST Temperature 37 C (98.6 F) 06/26/2024 10:23 AM EST Respiratory Rate 18 [...] Description 05/05/2025 8:30 AM EST Office Visit [facility] Diabetes Clinic [address] [place] [address] Carpet Inspector: Sandra Schaffer, Abraham Ellison MD [address] [place] [address] 06/29/2025 9:00 AM EST Follow-Up [facility] Liver Transplant Services [address] [place] [address] Herman Francis MD [address] [place] [address] Procedures * Due to [place] state law, this organization might not be sharing negative HIV tests. Procedure Name Priority Date/Time Associated Diagnosis Comments LIVER POST EXTERNAL PANEL Routine 09/12/2024 12:44 PM EDT COLONOSCOPY 05/28/2024 POCT GLYCOSYLATED HEMOGLOBIN (HGB A1C) [...] to Health Maintenance Results * Due to [place] state law, this organization might not be sharing negative HIV tests. * LIVER POST EXTERNAL PANEL (09/12/2024 12:44 PM EDT) Sirolimus 2.3 [facility] Sodium 138 mmol/L [facility] Potassium 4.3 [facility] Chloride 109 [facility] Carbon Dioxide 23 [facility] Glucose 138 [facility] BUN 13 mg/dL [facility] Creatinine 1.3 mg/dL [facility] Calcium 9.0 mg/dL [facility] Total Protein 6.8 g/dL [facility] Albumin 4.2 g/dL [facility] Bilirubin, Total 0.5 mg/dL [facility] Alkaline Phosphatase 125 U/L [facility] AST 22 U/L [facility] ALT 20 U/L [facility] Magnesium 1.90 mg/dL [facility] WBC 5.8 10*3/uL [facility] Hgb 13.4 [facility] Hematocrit 38.7 % [facility] Platelets 153 10*3/uL [facility] 09/12/2024 12:4 4 PM EDT us Herman Francis MD LAB BLOOD ORDERABLES Final Re sult [facility] [address] [place] [address] * COLONOSCOPY (05/28/2024) Narrative Procedure Note Herman Francis MD - 05/28/2024 2:56 PM EST [facility] Gastroenterology Patient Name: Nhan Rawls Procedure Date: 05/28/2024 2:56 PM Date of : 1960 Admit Type: Outpatient Age: 64 Room: [place] [address] Gender: Male Note Status: Finalized Attending MD: [...] 6.2(H) <=5.6 % 05/05/2024 9:03 AM EST [facility] Comment: A1C Recommendation for Non- Adults with Diabetes: <7.0% ADA 2011 Standards of Medical Care in Diabetes Blood 05/05/2024 8:49 AM EST 05/05/2024 9:03 AM EST us Edelmira Felipe Shah [employer] DEPARTMENT HEAD LAB POCT ORDERABLES - DEVICE F inal Result Performing Organization Address City/[facility]/ZIP Co de Phone Number [facility] [address] [place] [address], [place] * Microalbumin, Random Urine with Creatinine (01/07/2024 8:57 AM EDT) Microalbumin, Urine 2.9 mg/dL 01/07/2024 10:08 AM EDT [facility] Creatinine, Urine 211 22 - 328 mg/dL 01/07/2024 10:08 AM EDT [facility] Microalb/Creat Ratio, Random Urine 13.7 <30.0 mcg/mgCr 01/07/2024 10:08 AM EDT [facility] Comment: Microalbumin Reference Range: Normal <30 mcg/mg Creatinine Microalbuminuria 30-300 mcg/mg Creatinine Clinical Albuminuria >300 mcg/mg Creatinine Reference: ADA Guideline. Diabetes Care. 2004;27 (suppl 1) Urine Voided urine specimen / Unknown Non-Blood Collection / Unknown 01/07/2024 8:57 AM EDT 01/07/2024 9:29 AM EDT us Abraham Schaffer MD LAB URINE ORDERABLES Final R esult Performing Organization Address City/[facility]/ZIP Co de Phone Number [facility] [address] [place] [address], [place] * Comprehensive Metabolic Panel, Outside Lab (12/27/2022 9:59 AM EDT) Sodium 143 mmol/L [facility] Potassium 4.8 [facility] Chloride 108 [facility] Carbon Dioxide 26 [facility] Glucose 184 [facility] BUN 17 mg/dL [facility] Creatinine 1.95 mg/dL [facility] Calcium 9.5 mg/dL [facility] Total Protein 7.1 g/dL [facility] Albumin 4.1 g/dL [facility] Bilirubin, Total 0.5 mg/dL [facility] Alkaline Phosphatase 125 U/L [facility] AST 14 U/L [facility] ALT 17 U/L [facility] Blood Structure of peripheral vein / Unknown 12/27/2022 9:59 AM EDT us Herman Francis MD LAB BLOOD ORDERABLES Edited R esult - Final Performing Organization Address City/[facility]/ZIP Co de Phone Number [facility] [address] [place] [address] * HCV PCR QUAL, OUTSIDE LAB (06/08/2015 12:01 AM EST) HCV PCR Qual Not Detected [facility] 06/08/2015 12:0 1 AM EST us Historical Conversion Provider LAB BLOOD ORDERAB LES Final Result Performing Organization Address [facility]/ZIP Co de Phone Number [facility] [address], [place] [phone] * Vitamin D, 25-Hydroxy, Total, Immunoassay (04/03/2013 9:11 AM EST) Vitamin D 25 Oh 33 30 - 100 ng/mL [facility] Comment: Vitamin D Status 25-OH Vitamin D Deficiency: <10 ng/mL Insufficiency: 10-29 ng/mL Sufficiency: 30-100 ng/mL Toxicity: >100 ng/mL 04/03/2013 9:11 AM EST 04/03/2013 9:43 AM EST us Blaine Nava MD LAB BLOOD ORDERABLES Final Result [facility] [address] [place] [address], * Phosphorus (04/03/2013 9:11 AM EST) Phosphorus Blood 3.6 2.5 - 4.5 mg/dL [facility] 04/03/2013 9:11 AM EST 04/03/2013 9:39 AM EST us Blaine Nava MD LAB BLOOD ORDERABLES Final Result Performing Organization Address [facility] Co de Phone Number [facility] [facility] [address] [place] [address] * PTH, Intact (without Calcium) (04/03/2013 9:11 AM EST) Parathyroid Intact 24 12 - 65 pg/mL [facility] 04/03/2013 9:11 AM EST 04/03/2013 9:43 AM EST us Blaine Nava MD LAB BLOOD ORDERABLES Final Result Performing Organization Address [facility] Co de Phone Number [facility] [address] [place] [address], * HIV-1/2 Antigen/Antibodies 4th Generation w/Reflex (01/07/2013 4:27 AM EDT) HIV 1,2 Ab/Ag Stat NEGATIVE NEGATIVE [facility] 01/07/2013 4:27 AM EDT 01/07/2013 8:30 AM EDT us Cedric Lopez MD LAB BLOOD ORDERABLES Final Re sult Performing Organization Address [facility] Co de Phone Number [facility] [address] [place] [address] from Last 3 Months or Most Recently Relevant to Health Maintenance Additional Health Concerns Infection Onset 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
--- OUTSIDE RECORDS SUMMARY | 2024-12-05 08:56 | XMS_ITS | Patient Health Record ---
Author Organization [facility] Address [address] [place] [phone] Care Team Providers Care Drag Down Name Role Phone Isak (RETIRED) Nikhil ROCKWELL Primary Care Provide r Unavailable Mansoor Snider Jr Unavailable Reason For Referral No Information Plan Of Treatment No Information Insurance Providers Payer Name Payer Address Payer Phone Subscriber Number Group Number Insured Name Patient Relationship to Insured Coverage Start Date Coverage End Date MEDICARE OF [facility][1] [address] [facility] [place] [id number] STEPAN ALCARAZ Self - patient is the insured
[2024-12-05 09:02] LABS: MANUAL DIFF FLAG NO
[2024-12-05 09:13] LABS: Hematocrit 39.9 % (42.0-52.0); Hemoglobin 13.7 g/dl (14.0-18.0); Imm Gran Abs Auto 0.03 X10*3/uL (0.00-0.03); Imm Gran Pct Auto 0.5 % (0.0-0.4); Lymphocytes Absolute Auto 1.4 X10*3/uL (1.2-4.9); Mean Corpuscular HGB Conc 34.3 g/dl (31.0-36.0); Mean Corpuscular Hemoglobin 29.1 pg (27.0-33.0); Mean Corpuscular Volume 84.7 fL (80.0-98.0); NRBC Abs Auto 0.000 X10*3/uL (0.0-0.012); NRBC Pct Auto 0.0 /100WBC (0.0-0.2); Platelet Count 171 X10*3/uL (160-400); Red Blood Count 4.71 X10*6/uL (4.60-5.80); White Blood Count 6.4 X10*3/uL (4.8-10.8)
[2024-12-05 09:36] LABS: Alanine Aminotransferase 20 U/L (0-40); Albumin Level 4.3 g/dL (3.5-5.0); Alkaline Phosphatase 125 U/L (39-117); Anion Gap 13 (12-20); Aspartate Amino Transferase 18 U/L (5-37); Blood Urea Nitrogen 15 mg/dL (9-16); Calcium 8.5 mg/dL (8.4-10.2); Carbon Dioxide 22 mmol/L (22-29); Chloride 110 mmol/L (96-108); Estimated Glomerular Filt Rate 39; Magnesium 2.2 mg/dL (1.6-2.6); Potassium 4.1 mmol/L (3.3-5.1); Sodium 141 mmol/L (135-145); Total Protein 7.0 g/dL (6.5-8.0)
== END 2024-12-05 08:54 | disposition home or self-care (01) ==
LOC: HO.LABR 08:53
PROVIDERS: PCP Physician Assistant; Visit Provider Internal Medicine
DX: Z79.899 Other long term (current) drug therapy (principal); Z94.4 Liver transplant status
CPT/HCPCS: 36415; 80053; 80195; 83735; 85025

== ENCOUNTER 2025-02-09 14:10 | Outpatient (AMB) | payer MEDICARE, MEDICAID, SELFPAY ==
[2025-02-09 14:20] VITALS: BP 120/64; PULSE 97; O2SAT 96; BMI 27.7
--- NOTE | 2025-02-09 14:20 | HO.NEPHOV_ITS ---
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 Valet Required: No Accompanied by: Self / Same As Patient Allergies No Known Allergies Allergy (Mild, Verified 02/09/25 14:22) NOT APPLICABLE Medication List - Last Reconciled 02/09/25 by Juan Seymour MD amlodipine 10 mg PO DAILY atorvastatin 10 mg PO DAILY buspirone 15 mg PO TID dulaglutide (Trulicity) mg subcut QWEEK metoprolol tartrate 25 mg PO BID mirtazapine 15 mg PO BEDTIME multivitamin 1 tab PO DAILY mycophenolate mofetil 500 mg PO BID sirolimus 0.5 mg PO DAILY terazosin 1 mg PO DAILY HPI Comments Details: - The patient is a 64-year-old male presenting for evaluation of chronic kidney disease. 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 - Diabetes Mellitus: Post-transplant diabetes, managed with Trulicity, stable glucose levels, significant weight loss. - Hypertension: Controlled with amlodipine and metoprolol. [facility], [facility] Medical History (Updated 01/20/25 @ 11:59 by JERRY Cole) BPH (benign prostatic hyperplasia) Insomnia Anxiety Hyperlipidemia Hypertension Diabetes CKD (chronic kidney disease) Surgical History History of liver transplant Family History Mother No problems noted. Father No problems noted. Social History Housing: Apartment Patient Tobacco Use Status: Never used Tobacco e-Cigarette/Vaping Use: Never Used service: No Current occupational status: retired and disabled Cognitive needs: No Hearing needs: No Vision needs: Yes (rx glasses) Review of Systems Const Denies fever(s) and Denies weight loss Card Denies chest pain Resp Denies cough and Denies hemoptysis GI Denies abdominal pain, Denies diarrhea and Denies nausea Musc Denies back pain Neuro Denies focal weakness Physical Exam Vital Signs: Last Vital Signs Pulse 97 02/09/25 14:20 BP 120/64 02/09/25 14:20 Pulse Ox 96 02/09/25 14:20 Oxygen Delivery Method Room Air 02/09/25 14:20 BMI result Body Mass Index 27.7 Comfortable Neck supple no JVD. Lungs entry equal no rales. Heart S1-S2 heard no gallop or rub. Abdomen soft nontender. Neuro alert awake oriented. No asterixis. Extremities no edema. Results Reviewed Nephrology Results: Hgb, (14.0-18.0) 13.7 g/dl L 12/05/24 WBC, (4.8-10.8) 6.4 X10*3/uL 12/05/24 Plt Count, (160-400) 171 X10*3/uL 12/05/24 Sodium, (135-145) 141 mmol/L 12/05/24 Potassium, (3.3-5.1) 4.1 mmol/L 12/05/24 Chloride, (96-108) 110 mmol/L H 12/05/24 Carbon Dioxide, (22-29) 22 mmol/L 12/05/24 BUN, (9-16) 15 mg/dL 12/05/24 Creatinine, (0.5-1.4) 1.77 mg/dL H 12/05/24 Calcium, (8.4-10.2) 8.5 mg/dL 12/05/24 Phosphorus, (2.7-4.5) 2.7 mg/dL 04/18/23 Assessment & Plan Assessment & Plan (1) CKD (chronic kidney disease): Code(s): N18.9 - Chronic kidney disease, unspecified Category: Medical Qualifiers: Chronic kidney disease stage: stage 3 (moderate) Chronic kidney disease stage 3 subtype: unspecified whether 3a or 3b Qualified Code(s): N18.30 - Chronic kidney disease, stage 3 unspecified Plan 1. Chronic Kidney Disease In the setting of liver transplant. Over the last 6 years serum creatinine has been around 1.6-2.0 mg/dL. This is probably his baseline. Routine baseline workup initiated - Renal ultrasound to assess echogenicity and to rule out hydronephrosis - Follow-up in three months. 2. History Of Liver Transplant - Continue sirolimus and mycophenolate. - Annual follow-up at [facility]. 3. Diabetes Mellitus - Continue Trulicity. - Regular glucose monitoring. Maintain A1c less than 7 4. Hypertension - Continue amlodipine and metoprolol. Maintain blood pressure less than 130/80 Avoid hypotension Encouraged to stand low-sodium diet - Regular blood pressure monitoring. Further management will be based on the outcome of the above baseline investigations. I will be happy to follow him along with the team Orders: Orders Total Protein Urine Random 6 Weeks N18.30 - Chronic kidney disease, stage 3 unspecified Comprehensive Met. Panel 6 Weeks N18.30 - Chronic kidney disease, stage 3 unspecified Creatinine Urine 6 Weeks N18.30 - Chronic kidney disease, stage 3 unspecified UA and rflx microscopic 6 Weeks N18.30 - Chronic kidney disease, stage 3 unspecified Complete Blood Count no Diff 6 Weeks N18.30 - Chronic kidney disease, stage 3 unspecified Vitamin D 25-OH Total 6 Weeks N18.30 - Chronic kidney disease, stage 3 u nspecified US renal BI Today N18.30 - Chronic kidney disease, stage 3 unspecified Coding Level of Care Code New Pt Level 4 (23783) Diagnoses Stage 3 chronic kidney disease, unspecified whether stage 3a or 3b CKD N18.30 Chronic kidney disease stage: stage 3 (moderate) Chronic kidney disease stage 3 subtype: unspecified whether 3a or 3b
--- OUTSIDE RECORDS SUMMARY | 2025-02-09 16:48 | XMS_ITS | Encounter Summary ---
Demographics Address [address] [address] Mobile Phone Home Phone Preferred Language Upper Sorbian Marital Status Caodaism Affiliation Unknown Race White
--- OUTSIDE RECORDS SUMMARY | 2025-02-09 16:48 | XMS_ITS | Encounter Summary ---
Author Organization [facility] Address [address] [place] [address] Care Team Providers Care Forensic Social Worker Name Role Phone Nikhil Parisi Primary Care Provider [phone]
== END 2025-02-09 14:44 | disposition home or self-care (01) ==
LOC: HO.HKA 14:11
PROVIDERS: PCP Physician Assistant Medical; Referring Provider Physician Assistant Medical; Visit Provider Internal Medicine Hypertension Specialist
DX: N18.30 Chronic kidney disease, stage 3 unspecified (principal)
CPT/HCPCS: 99204

== ENCOUNTER → 2025-02-09 14:10 | Outpatient (BNVA) | payer MEDICARE, MEDICAID, SELFPAY | PROVIDERS: PCP Physician Assistant Medical; Referring Provider Physician Assistant Medical; Visit Provider Internal Medicine Hypertension Specialist | DX: I12.9 Hypertensive chronic kidney disease with stage 1 through stage 4 chronic kidney disease, or unspecified chronic kidney disease (principal); E11.22 Type 2 diabetes mellitus with diabetic chronic kidney disease; N18.30 Chronic kidney disease, stage 3 unspecified; Z79.85 Long-term (current) use of injectable non-insulin antidiabetic drugs | CPT/HCPCS: 99202 ==

== ENCOUNTER 2025-02-27 10:13 | Outpatient (REF) | payer MEDICARE, MEDICAID, SELFPAY ==
--- NOTE | ~2025-02-27 | US_ITS ---
CLINICAL HISTORY: N18.30 - Chronic kidney disease, stage 3 unspecified US renal with Color Doppler Comparison: None Findings: Right kidney normal size and slightly echogenic, 10.6 cm length. No hydronephrosis calculus or mass. Normal color flow. Left kidney normal size and slightly echogenic, 10.1 cm length. No hydronephrosis calculus or mass. Normal color flow. Exophytic benign renal cortical cyst lower pole measuring 5.2 x 4.4 x 4.9 cm Impression: 1. Incidental benign renal cortical cyst left kidney. Slightly echogenic renal cortices can be seen in the setting of nonspecific medical renal disease. This document has been electronically signed by: Guillermo Buchanan MD on 02/28/2025 10:33:35
== END 2025-02-27 10:14 | disposition home or self-care (01) ==
LOC: HO.HMGCX 10:13
PROVIDERS: PCP Physician Assistant Medical; Visit Provider Internal Medicine Hypertension Specialist
DX: N18.30 Chronic kidney disease, stage 3 unspecified (principal)
CPT/HCPCS: 76775

== ENCOUNTER 2025-03-17 13:14 | Outpatient (REF) | payer MEDICARE, MEDICAID, SELFPAY ==
[2025-03-17 13:30] LABS: MANUAL DIFF FLAG NO
[2025-03-17 14:21] LABS: Hematocrit 40.7 % (42.0-52.0); Hemoglobin 13.9 g/dl (14.0-18.0); Imm Gran Abs Auto 0.02 X10*3/uL (0.00-0.03); Imm Gran Pct Auto 0.3 % (0.0-0.4); Lymphocytes Absolute Auto 1.3 X10*3/uL (1.2-4.9); Mean Corpuscular HGB Conc 34.2 g/dl (31.0-36.0); Mean Corpuscular Hemoglobin 28.9 pg (27.0-33.0); Mean Corpuscular Volume 84.6 fL (80.0-98.0); NRBC Abs Auto 0.000 X10*3/uL (0.0-0.012); NRBC Pct Auto 0.0 /100WBC (0.0-0.2); Platelet Count 144 X10*3/uL (160-400); Red Blood Count 4.81 X10*6/uL (4.60-5.80); White Blood Count 6.6 X10*3/uL (4.8-10.8)
[2025-03-17 14:49] LABS: Alanine Aminotransferase 18 U/L (0-40); Albumin Level 4.5 g/dL (3.5-5.0); Alkaline Phosphatase 130 U/L (39-117); Anion Gap 11 (12-20); Aspartate Amino Transferase 18 U/L (5-37); Blood Urea Nitrogen 17 mg/dL (9-16); Calcium 9.0 mg/dL (8.4-10.2); Carbon Dioxide 25 mmol/L (22-29); Chloride 109 mmol/L (96-108); Estimated Glomerular Filt Rate 43; Magnesium 2.0 mg/dL (1.6-2.6); Potassium 4.3 mmol/L (3.3-5.1); Sodium 141 mmol/L (135-145); Total Protein 7.1 g/dL (6.5-8.0)
--- OUTSIDE RECORDS SUMMARY | 2025-03-17 16:57 | XMS_ITS | Clinical Summary ---
Author Organization [facility] Address [address] [place] [address] Care Team Providers Care Health Aid Name Role Phone Nikhil Parisi Primary Care Provider [phone] Allergies No known active allergies Medications Freestyle Lite test stripsIndicatio ns:Post-transpl ant diabetes mellitus Use to test blood sugar once daily. 100 strip 3 02/24/2025 1:36 PM EDT 4 Active blood glucose diagnostic lancet 28 gaugeIndication s:Post-transpla nt diabetes mellitus Use one daily 200 each 3 04/11/2024 4:08 AM EST 4 04/09/20 25 Active atorvastatin (LIPITOR) 10 mg tablet Take 1 tablet (10 mg total) by mouth once a day. 30 tablet 11 02/24/2025 1:36 PM EDT 4 04/11/20 25 Active cyanocobalamin (vitamin B-12) 1,000 mcg tablet Take 1 tablet (1,000 mcg total) by mouth daily. 90 tablet 3 01/27/2025 3:34 PM EDT 4 Active mirtazapine (REMERON) 15 mg tabletIndicatio ns:Other depression Take 1 tablet by mouth at bedtime 30 tablet 11 02/24/2025 1:36 PM EDT 4 Active terazosin (HYTRIN) 1 mg capsule TAKE 1 CAPSULE BY MOUTH AT BEDTIME NIGHTLY. 30 capsule 11 01/13/2025 12:29 PM EDT 4 05/09/20 25 Active sirolimus (RAPAMUNE) 0.5 mg tabletIndicatio ns:History of liver transplant Take 1 tablet (0.5 mg total) by mouth daily. 30 tablet 11 02/24/2025 1:36 PM EDT 5 06/09/19 26 Active mycophenolate mofetil (CELLCEPT) 250 mg capsuleIndicati ons:Liver replaced by transplant Take 1 capsule (250 mg total) by mouth 2 times a day. 60 capsule 11 03/10/2025 1:55 AM EDT 5 06/20/19 26 Active multivitamin (THERAGRAN) tablet TAKE ONE TABLET BY MOUTH DAILY 90 tablet 3 01/27/2025 3:34 PM EDT 5 06/20/19 26 Active busPIRone (BUSPAR) 15 mg tablet Take 1 tablet (15 mg total) by mouth every morning AND 2 tablets (30 mg total) every evening. 90 tablet 5 02/24/2025 1:36 PM EDT 5 Active dulaglutide (Trulicity) 1.5 mg/0.5 mL injection doseIndications :Post-transplan t diabetes mellitus Inject 0.5 mL (1.5 mg total) under the skin once a week. 2 mL 01/13/2025 12:29 PM EDT 5 11/19/19 26 Active tamsulosin (FLOMAX) 0.4 mg capsule Take 1 capsule (0.4 mg total) by mouth once a day. 90 capsule 3 5 01/04/20 26 Active amLODIPine (NORVASC) 10 mg tablet Take 1 tablet (10 mg total) by mouth daily. 90 tablet 3 5 01/04/20 26 Active metoprolol tartrate (LOPRESSOR) 25 mg tabletIndicatio ns:History of liver transplant TAKE ONE TABLET BY MOUTH TWO TIMES A DAY 60 tablet 11 02/24/2025 1:36 PM EDT 5 01/27/20 26 Active buPROPion SR (WELLBUTRIN SR) 100 [...] Encounters Date Type Department Care Team Description 02/05/2025 CM Clinical Specialty Pharmacy [facility] [address] [place] [address] Freddie Estes RPh 01/26/2025 Refill [facility] Transplant Services [address] [place] [address] Herman Francis MD History of liver transplant (HCC) 01/02/2025 Refill [facility] Liver Transplant Services [address] [place] [address] Herman Francis MD 01/02/2025 Refill [facility] G[facility]ology [facility] [address] [place] [address]671 Manager Academic: Herman Xie MD from Last 3 Months Immunizations Immunization Administration Dates Next Due Covid-19, Pfizer, mRNA, [place] valent, PF 30 mcg/0.3 mL dose (for [...] Description 05/05/2025 8:30 AM EST Office Visit [facility] [address] [place] [address] Manager Academic: Abraham Amador MD [address] [place] [address] 06/29/2025 9:00 AM EST Follow-Up [facility] Liver Transplant Services [address] [place] [address] Herman Francis MD [address] [place] [address] Health Maintenance Due Date Last Done Comments [...] 10/23/2022, 0 10/23/2022, 10/23/2022, Additional history exists Alcohol/Substance Use Screening 05/21/2024 Depression Screening and Follow-Up 05/21/2024 Social Drivers of Health Diane ual Screening 05/21/2024 Hemoglobin A1C 11/03/2024 05/05/2024, 12/19, 05/03/2023, Additional history exists Urine Microalbumin 01/06/2025 01/07/2024, 0 12/19/2022, 10/10/2021, Additional history exists COVID-19 Vaccine ( - 2024-2 6 season) 2025 04/01/2021, 09/28/2020, 09/07/2020 Influenza Vaccine (#1) 2025 Hemoglobin 12/05/2025 12/05/2024, 04/2 09/2024, 06/20/2024, Additional history exists Colon Cancer Screening 05/28/2034 Colonoscopy 05/28/2034 05/28/2024, 12/2024, 08/22/2023, Additional history exists Tobacco Screening 05/21/2042 06/26/2024 HIV Screening Completed 01/07/2013, 12/06/2012 Hepatitis C Screening Completed 06/08/2015 , 05/10/2015, 03/15/2015, Additional history exists Statin Therapy Completed 04/11/2024 Procedures * Due to [place] state law, this organization might not be sharing negative HIV tests. Procedure Name Priority Date/Time Associated Diagnosis Comments LIVER POST EXTERNAL PANEL Routine 12/05/2024 9:01 AM EDT COLONOSCOPY 05/28/2024 POCT GLYCOSYLATED HEMOGLOBIN (HGB [...] to Health Maintenance Results * Due to [place] state law, this organization might not be sharing negative HIV tests. * LIVER POST EXTERNAL PANEL (12/05/2024 9:01 AM EDT) Sirolimus 3.8 [facility] Sodium 141 mmol/L [facility] Potassium 4.1 [facility] Chloride 110 [facility] Carbon Dioxide 22 [facility] Glucose 188 [facility] BUN 15 mg/dL [facility] Creatinine 1.77 mg/dL [facility] Calcium 8.5 mg/dL [facility] Total Protein 7.0 g/dL [facility] Albumin 4.3 g/dL [facility] Bilirubin, Total 0.4 mg/dL [facility] Alkaline Phosphatase 125 U/L [facility] AST 18 U/L [facility] ALT 20 U/L [facility] Magnesium 2.20 mg/dL [facility] WBC 6.4 10*3/uL [facility] Hgb 13.7 [facility] Hematocrit 39.9 % [facility] Platelets 171 10*3/uL [facility] 12/05/2024 9:01 AM EDT us Herman Francis MD LAB BLOOD ORDERABLES Final Re sult [facility] [address] [place] [address] * COLONOSCOPY (05/28/2024) Narrative Procedure Note Herman Francis MD - 05/28/2024 2:[address] [facility] Gastroenterology Patient Name: Nhan Rawls Procedure Date: 05/28/2024 2:56 PM Date of : 1960 Admit Type: Outpatient Age: 64 Room: [facility] Gender: Male Note Status: Finalized Attending MD: [...] AM EST 05/05/2024 9:03 AM EST Edelmira Felipe Shah BLADDER TRIMMER LAB POCT ORDERABLES - DEVICE F inal Result Performing Organization Address City/[facility]/ZIP Co de Phone Number [facility] [address] [place] [address], [place] * Microalbumin, Random Urine with Creatinine (01/07/2024 8:57 AM EDT) Microalbumin, Urine 2.9 mg/dL 01/07/2024 10:08 AM EDT [facility] Creatinine, Urine 211 22 - 328 mg/dL 01/07/2024 10:08 AM EDT [facility] Microalb/Creat Ratio, Random Urine 13.7 <30.0 mcg/mgCr 01/07/2024 10:08 AM EDT [facility] Comment: Microalbumin Reference Range: Normal <30 mcg/mg Creatinine Microalbuminuria 30-300 mcg/mg Creatinine Clinical Albuminuria >300 mcg/mg Creatinine Reference: ADA Guideline. Diabetes Care. 2004;27 (suppl 1) Urine Voided urine specimen / Unknown Non-Blood Collection / Unknown 01/07/2024 8:57 AM EDT 01/07/2024 9:29 AM EDT us Abraham Schaffer MD LAB URINE ORDERABLES Final R esult Performing Organization Address City/[facility]/ZIP Co de Phone Number [facility] [address] [place] [address], [place] * Comprehensive Metabolic Panel, Outside Lab (12/27/2022 9:59 AM EDT) Sodium 143 mmol/L [facility] Potassium 4.8 [facility] Chloride 108 [facility] Carbon Dioxide 26 [facility] Glucose 184 [facility] BUN 17 mg/dL [facility] Creatinine 1.95 mg/dL [facility] Calcium 9.5 mg/dL [facility] Total Protein 7.1 g/dL [facility] Albumin 4.1 g/dL [facility] Bilirubin, Total 0.5 mg/dL [facility] Alkaline Phosphatase 125 U/L [facility] AST 14 U/L [facility] ALT 17 U/L [facility] Blood Structure of peripheral vein / Unknown 12/27/2022 9:59 AM EDT us Herman Francis MD LAB BLOOD ORDERABLES Edited R esult - Final Performing Organization Address [facility]/ZIP Co de Phone Number [facility] [address] [place] [address] * HCV PCR QUAL, OUTSIDE LAB (06/08/2015 12:01 AM EST) HCV PCR Qual Not Detected [facility] 06/08/2015 12:0 1 AM EST us Historical Conversion Provider LAB BLOOD ORDERAB LES Final Result Performing Organization Address [facility] Co de Phone Number [facility] [address] [place] [address] * Vitamin D, 25-Hydroxy, Total, Immunoassay (04/03/2013 9:11 AM EST) Vitamin D 25 Oh 33 30 - 100 ng/mL [facility] Comment: Vitamin D Status 25-OH Vitamin D Deficiency: <10 ng/mL Insufficiency: 10-29 ng/mL Sufficiency: 30-100 ng/mL Toxicity: >100 ng/mL 04/03/2013 9:11 AM EST 04/03/2013 9:43 AM EST us Blaine Nava MD LAB BLOOD ORDERABLES Final Result Performing Organization Address City/[facility]/ZIP Co de Phone Number [facility] [address] [place] [address], * Phosphorus (04/03/2013 9:11 AM EST) Phosphorus Blood 3.6 2.5 - 4.5 mg/dL [facility] 04/03/2013 9:11 AM EST 04/03/2013 9:39 AM EST us Blaine Nava MD LAB BLOOD ORDERABLES Final Result [facility] [address] [place] [address], * PTH, Intact (without Calcium) (04/03/2013 9:11 AM EST) Parathyroid Intact 24 12 - 65 pg/mL [facility] 04/03/2013 9:11 AM EST 04/03/2013 9:43 AM EST us Blaine Nava MD LAB BLOOD ORDERABLES Final Result [facility] [address] [place] [address], * HIV-1/2 Antigen/Antibodies 4th Generation w/Reflex (01/07/2013 4:27 AM EDT) HIV 1,2 Ab/Ag Stat NEGATIVE NEGATIVE [facility] 01/07/2013 4:27 AM EDT 01/07/2013 8:30 AM EDT us Cedric Lopez MD LAB BLOOD ORDERABLES Final Re sult [facility] [address] [place] [address] from Last 3 Months or Most Recently Relevant to Health Maintenance Additional Health Concerns Infection Onset 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 Insurance MEDICARE [facility] Advance Directives Documents on File Type Date Recorded Patient Cyber Security Manager Expl anatreplaced by [facility] Proxy 12/06/2012 12:00 AM 11/18 * Full Code (Latest Code Status on File) Date Activated Date Inactivated Comments 05/28/2024 3:42 PM 06/02/2024 10:22 AM * Full Code Date Activated Date Inactivated Comments 08/22/2023 10:17 AM 08/22/2023 4:27 PM Care Teams Health Aid Relationship Specialty Start Date End Date Nikhil Parisi [address] [place] [address] [place] [address] PCP - General 12/07/16
--- OUTSIDE RECORDS SUMMARY | 2025-03-17 16:57 | XMS_ITS | Encounter Summary ---
Author Organization [facility] Address [address] [place] [address] Care Team Providers Care Inspector Health Care Facilities Name Role Phone Nikhil Parisi Primary Care Provider [phone] Encounter Details Date Type Department Care Team (Late st Contact Info) Description 07/04/2016 Orders Only [facility] Specialty Pharmacy [facility] Building [address] [place] [address] Blaine Nava MD [address] [place] [address] Social History Tobacco Use Types Packs/Day Years [...] Description 05/05/2025 8:30 AM EST Office Visit [facility] [address] [place] [address] Bilingual [employer] Teacher: Sandra Schaffer, Abraham Ellison MD [address] [place] [address] 06/29/2025 9:00 AM EST Follow-Up [facility] Liver Transplant Services [address] [place] [address] 20066 Herman Francis MD [address] [place] [address] documented as of this encounter Visit Diagnoses Not on filedocumented in this encounter Additional Health Concerns Infection Onset Date Last Indicated 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
--- OUTSIDE RECORDS SUMMARY | 2025-03-17 16:57 | XMS_ITS ---
Author Organization [facility] Address [address] [place] [address] Care Team Providers Care Spacecraft Systems Engineer Name Role Phone Nikhil Parisi Primary Care Provider [phone] Transplant Episode Liver Recipient [facility] [place] - [facility] Organ Received: Liver Transplanted on 12/24/2012 Marked as Active Follow-up on 12/24/2012 Liver CoordinatorQing Christianson RN Phone: N/A Fax: N/A Email: N/A [place] Organ Diagnosis Organ Primary Contributory Liver Alcoholic [...] Coordinator N/A N/A N/A Herman Francis MD Substitute Teacher [phone] [email or web address] Nikhil Parisi Referring Physician [phone] N/A Events Post-Transplant Pre-Transplant Admitted: 12/05/2012 Referred: 11/18/2012 Transplanted: 12/24/2012 Evaluation began: 3 Discharged: 01/10/2013 Committee: 12/06/2012 Center waitlisted: 3
--- OUTSIDE RECORDS SUMMARY | 2025-03-17 16:57 | XMS_ITS | Encounter Summary ---
Author Organization [facility] Address [address] [place] [address] Care Team Providers Care Printing Film Stripper Name Role Phone Nikhil Parisi Primary Care Provider [phone] Encounter Details Date Type Department Care Team (Late st Contact Info) Description 05/22/2024 MentiNovahart Message [facility] Endoscopy [address] [place] [address] Mychart, Generic Provider [facility] [place] [phone] Important medication hold for procedure with Dr. 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
--- OUTSIDE RECORDS SUMMARY | 2025-03-17 16:57 | XMS_ITS | Encounter Summary ---
Author Organization [facility] Address [address] [place] [address] Care Team Providers Care Licensed Marriage And Family Therapist Name Role Phone Nikhil Parisi Primary Care Provider Encounter Details Date Type Department Care Team (Late st Contact Info) Description 07/28/2016 Orders Only [facility] Specialty Pharmacy [facility] Building [address] [place] [address] Patito Carpenter MD [address] [place] [address] Social History Tobacco Use Types Packs/Day Years [...] Description 05/05/2025 8:30 AM EST Office Visit [facility] Building Diabetes Clinic [address] [place] [address] Outcome Analyst: Sandra Schaffer, Abraham Ellison MD [address] [place] [address] 06/29/2025 9:00 AM EST Follow-Up [facility] Liver Transplant Services [address] [place] [address] Herman Francis MD [address] [place] [address] documented as of this encounter Visit Diagnoses Not on filedocumented in this encounter Additional Health Concerns Infection Onset Date Last Indicated Resolved Time 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
--- OUTSIDE RECORDS SUMMARY | 2025-03-17 16:57 | XMS_ITS | Encounter Summary ---
Author Organization [facility] Address [address] [place] [address] Care Team Providers Care Herd Tester Name Role Phone Nikhil Parisi Primary Care Provider [phone] Encounter Details Date Type Department Care Team (Late st Contact Info) Description 02/04/2016 Orders Only [facility] Specialty Pharmacy [facility] Building [address] [place] [address] Adelfo Garzon MD [address] [place] [address] Social History Tobacco Use Types Packs/Day Years [...] Description 05/05/2025 8:30 AM EST Office Visit [facility] Building Diabetes Clinic [address] [place] [address] Aniline Press Worker: Sandra Schaffer, Abraham Ellison MD [address] [place] [address] 06/29/2025 9:00 AM EST Follow-Up [facility] Liver Transplant Services [address] [place] [address] Herman Francis MD [address] [place] [address] documented as of this encounter Visit Diagnoses Not on filedocumented in this encounter Additional Health Concerns Infection Onset Date Last Indicated Resolved Time 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
--- OUTSIDE RECORDS SUMMARY | 2025-03-17 16:57 | XMS_ITS | Encounter Summary ---
Author Organization [facility] Address [address] [place] [address] Care Team Providers Care Clinical Outcomes Manager Name Role Phone Nikhil Parisi Primary Care Provider [phone] Encounter Details Date Type Department Care Team (Late st Contact Info) Description 12/15/2015 Orders Only [facility] Specialty Pharmacy [facility] Building [address] [place] [address] David Bowie MD [address] [place] [address] Endocrin[place] [address] Social History Tobacco Use Types Packs/Day Years [...] Description 05/05/2025 8:30 AM EST Office Visit [facility] Building Diabetes Clinic [address] [place] [address] Waste Hand: Sandra Schaffer, Abraham Ellison MD [address] [place] [address] 06/29/2025 9:00 AM EST Follow-Up [facility] Liver Transplant Services [address] [place] [address] Herman Francis MD [address] [place] [address] documented as of this encounter Visit Diagnoses Not on filedocumented in this encounter Additional Health Concerns Infection Onset Date Last Indicated Resolved Time 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
--- OUTSIDE RECORDS SUMMARY | 2025-03-17 16:57 | XMS_ITS | Encounter Summary ---
Author Organization [facility] Address [address] [place] [address] Care Team Providers Care Treating Machine Operator Name Role Phone Nikhil Parisi Primary Care Provider [phone] Encounter Details Date Type Department Care Team (Late st Contact Info) Description 01/17/2016 Orders Only [facility] Specialty Pharmacy [facility] Building [address] [place] [address] Vangie Epstein Social History Tobacco Use Types [...] Description 05/05/2025 8:30 AM EST Office Visit [facility] Diabetes [facility] [address] [place] [address] Director Of Surgery: Sandra Schaffer, Abraham Ellison MD [address] [place] [address] 06/29/2025 9:00 AM EST Follow-Up [facility] Liver Transplant Services [address] [place] [address] Herman Francis MD [address] [place] [address] documented as of this encounter Visit Diagnoses Not on filedocumented in this encounter Additional Health Concerns Infection Onset Date Last Indicated Resolved Time 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
--- OUTSIDE RECORDS SUMMARY | 2025-03-17 16:58 | XMS_ITS | Encounter Summary ---
Author Organization [facility] Address [address] [place] [address] Care Team Providers Care Controls Engineer Name Role Phone Nikhil Parisi Primary Care Provider [phone] Encounter Details Date Type Department Care Team (Late st Contact Info) Description 07/03/2016 Orders Only [facility] Specialty Pharmacy [facility] Building [address] [place] [address] Vangie Epstein Social History Tobacco Use Types [...] Description 05/05/2025 8:30 AM EST Office Visit [facility] Diabetes Clinic [address] [place] [address] Leadership Development Manager: Sandra Schaffer, Abraham Ellison MD [address] [place] [address] 06/29/2025 9:00 AM EST Follow-Up [facility] Liver Transplant Services [address] [place] [address] Herman Francis MD [address] [place] [address] documented as of this encounter Visit Diagnoses Not on filedocumented in this encounter Additional Health Concerns Infection Onset Date Last Indicated Resolved Time 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
--- OUTSIDE RECORDS SUMMARY | 2025-03-17 16:58 | XMS_ITS | Encounter Summary ---
Author Organization [facility] Address [address] [place] [address] Care Team Providers Care Mangle Press Catcher Name Role Phone Nikhil Parisi Primary Care Provider [phone] Encounter Details Date Type Department Care Team (Late st Contact Info) Description 02/14/2016 Orders Only [facility] Specialty [facility] Building [address] [place] [address] 20268 Blaine Nava MD [address] [place] [address] Social History Tobacco Use Types Packs/Day Years [...] Description 05/05/2025 8:30 AM EST Office Visit [facility] [address] [place] [address] 47799 Loader Unloader: Sandra Schaffer, Abraham Ellison MD [address] [place] [address] 318[address] 06/29/2025 9:00 AM EST Follow-Up [facility] Transplant Services [address] [place] [address] 19832 Herman Francis MD [address] [place] [address] 8[address]39 documented as of this encounter Visit Diagnoses Not on filedocumented in this encounter Additional Health Concerns Infection Onset Date Last Indicated Resolved Time 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
--- OUTSIDE RECORDS SUMMARY | 2025-03-17 16:58 | XMS_ITS | Encounter Summary ---
Author Organization [facility] Address [address] [place] [address] Care Team Providers Care Director Of Enrollment Name Role Phone Nikhil Parisi Primary Care Provider [phone] Encounter Details Date Type Department Care Team (Late st Contact Info) Description 08/21/2016 Orders Only [facility] Building [address] [place] [address] Adelfo Garzon MD [address] [place] [address] Social History Tobacco Use Types Packs/Day Years [...] 05/05/2025 8:30 AM EST Office Visit [facility] Diabetes Clinic [address] [place] [address] 22[address] Civil Cad Tech: Sandra Schaffer, Abraham Ellison MD [address] [place] [address] 895[address] 06/29/2025 9:00 AM EST Follow-Up [facility] Liver Transplant Services [address] [place] [address] 46070 Herman Francis MD [address] [place] [address] 27178 documented as of this encounter Visit Diagnoses Not on filedocumented in this encounter Additional Health Concerns Infection Onset Date Last Indicated Resolved Time 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
--- OUTSIDE RECORDS SUMMARY | 2025-03-17 16:58 | XMS_ITS | Encounter Summary ---
Author Organization [facility] Address [address] [place] [address] Care Team Providers Care Coding Team Lead Name Role Phone Nikhil Parisi Primary Care Provider [phone] Encounter Details Date Type Department Care Team (Late st Contact Info) Description 01/08/2017 Orders Only [facility] Specialty Pharm[facility] Building [address] [place] [address] David Bowie MD [address] [place] [address] Endocr[place] [address] Social History Tobacco Use Types Packs/Day Years [...] Description 05/05/2025 8:30 AM EST Office Visit [facility] Building Diabetes Clinic [address] [place] [address] 72061 Cake Decorator: Sandra Schaffer, Abraham Ellison MD [address] [place] [address] 06/29/2025 9:00 AM EST Follow-Up [facility] Transplant Services [address] [place] [address] Herman Francis MD [address] [place] [address] 21[address] documented as of this encounter Visit Diagnoses Not on filedocumented in this encounter Additional Health Concerns Infection Onset Date Last Indicated Resolved Time 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
--- OUTSIDE RECORDS SUMMARY | 2025-03-17 16:58 | XMS_ITS | Encounter Summary ---
Author Organization [facility] Address [address] [place] [address] Care Team Providers Care Manager Hospitality Name Role Phone Nikhil Parisi Primary Care Provider [phone] Encounter Details Date Type Department Care Team (Late st Contact Info) Description 10/30/2016 Orders Only [facility] Specialty Pharm[facility] Building [address] [place] [address] Adelfo Garzon MD [address] [place] [address] Social History Tobacco Use Types Packs/Day Years [...] Description 05/05/2025 8:30 AM EST Office Visit [facility] Building Diabetes Clinic [address] [place] [address] 24[address] Handbag Designer: Sandra Schaffer, Abraham Ellison MD [address] [place] [address] 06/29/2025 9:00 AM EST Follow-Up [facility] Transplant Services [address] [place] [address] 378[address] Herman Francis MD [address] [place] [address]69 documented as of this encounter Visit Diagnoses Not on filedocumented in this encounter Additional Health Concerns Infection Onset Date 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
--- OUTSIDE RECORDS SUMMARY | 2025-03-17 16:58 | XMS_ITS | Patient Health Record ---
Author Organization [facility] Address [address] [place] [id number] Care Team Providers Care Complaints Coordinator Name Role Phone Isak (RETIRED) Nikhil ROCKWELL Primary Care Provide r Unavailable Mansoor Snider Jr Unavailable Reason For Referral No Information Plan Of Treatment No Information Insurance Providers Payer Name Payer Address Payer Phone Subscriber Number Group Number Insured Name Patient Relationship to Insured Coverage Start Date Coverage End Date MEDICARE OF [facility] [address] [facility] [place] [id number] STEPAN ALCARAZ Self - patient is the insured
--- OUTSIDE RECORDS SUMMARY | 2025-03-17 16:58 | XMS_ITS | Encounter Summary ---
Author Organization [facility] Address [address] [place] [address] Care Team Providers Care Tnt Powder Worker Name Role Phone Nikhil Parisi Primary Care Provider [phone] Encounter Details Date Type Department Care Team (Late st Contact Info) Description 06/28/2016 Orders Only [facility] Building [address] [place] [address] Blaine Nava MD [address] [place] [address] Social History Tobacco Use Types Packs/Day Years [...] Description 05/05/2025 8:30 AM EST Office Visit [facility] [address] [place] [address] Wrap Turner: Sandra Schaffer, Abraham Ellison MD [address] [place] [address] 06/29/2025 9:00 AM EST Follow-Up [facility] Liver Transplant Services [address] [place] [address] Herman Francis MD [address] [place] [address] documented as of this encounter Visit Diagnoses Not on filedocumented in this encounter Additional Health Concerns Infection Onset Date Last Indicated Resolved Time 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
--- OUTSIDE RECORDS SUMMARY | 2025-03-17 16:58 | XMS_ITS | Encounter Summary ---
Author Organization [facility] Address [address] [place] [address] Care Team Providers Care Fry Cook Name Role Phone Nikhil Parisi Primary Care Provider [phone] Encounter Details Date Type Department Care Team (Late st Contact Info) Description 08/24/2016 Orders Only [facility] Pharm[facility] Building [address] [place] [address] Vangie Epstein Social History Tobacco Use Types [...] Description 05/05/2025 8:30 AM EST Office Visit [facility] [address] [place] [address] 53784 Ice Cream Freezer Helper: Sandra Schaffer, Abraham Ellison MD [address] [place] [address] 06/29/2025 9:00 AM EST Follow-Up [facility] Liver Transplant Services [address] [place] [address] Herman Francis MD [address] [place] [address] 423[address] documented as of this encounter Visit Diagnoses Not on filedocumented in this encounter Additional Health Concerns Infection Onset Date Last Indicated Resolved Time 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
--- OUTSIDE RECORDS SUMMARY | 2025-03-17 16:58 | XMS_ITS | Encounter Summary ---
Author Organization [facility] Address [address] [place] [address] Care Team Providers Care Pantograph Transferrer Name Role Phone Nikhil Parisi Primary Care Provider [phone] Encounter Details Date Type Department Care Team (Late st Contact Info) Description 11/14/2016 Orders Only [facility] Specialty Pharmacy [facility] Building [address] [place] [address] Blaine Nava MD [address] [place] [address] 37918 Social History Tobacco Use Types Packs/Day Years [...] Description 05/05/2025 8:30 AM EST Office Visit [facility] [address] [place] [address] Payroll Secretary: Sandra Schaffer, Abraham Ellison MD [address] [place] [address] 06/29/2025 9:00 AM EST Follow-Up [facility] Liver Transplant Services [address] [place] [address] Herman Francis MD [address] [place] [address] 6[address] documented as of this encounter Visit Diagnoses Not on filedocumented in this encounter Additional Health Concerns Infection Onset Date Last Indicated 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
--- OUTSIDE RECORDS SUMMARY | 2025-03-17 16:58 | XMS_ITS | Encounter Summary ---
Author Organization [facility] Address [address] [place] [address] Care Team Providers Care Operator Assistant I Cementing Name Role Phone Nikhil Parisi Primary Care Provider [phone] Encounter Details Date Type Department Care Team (Late st Contact Info) Description 2017 Transplant Conversio n Encounter [facility] Health Information Management [address] [place] [address] Provider, Historical Conversion [place] Social History Tobacco Use Types Packs/Day Years [...] Description 05/05/2025 8:30 AM EST Office Visit [facility] Building Diabetes Clinic [address] [place] [address] Vice President Sales: Sandra Schaffer, Abraham Ellison MD [address] [place] [address] 06/29/2025 9:00 AM EST Follow-Up 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
--- OUTSIDE RECORDS SUMMARY | 2025-03-17 16:58 | XMS_ITS | Encounter Summary ---
Author Organization [facility] Address [address] [place] [address] Care Team Providers Care Concrete Tester Name Role Phone Nikhil Parisi Primary Care Provider [phone] Encounter Details Date Type Department Care Team (Late st Contact Info) Description 08/27/2016 Orders Only [facility] Specialty Pharm[facility] Building [address] [place] [address] 8[address]22 Blaine Nava MD [address] [place] [address] 94[address] Social History Tobacco Use Types Packs/Day Years [...] Description 05/05/2025 8:30 AM EST Office Visit [facility] Diabetes Clinic [address] [place] [address] 81316 Forming Process Line Worker: Sandra Schaffer, Abraham Ellison MD [address] [place] [address] 06/29/2025 9:00 AM EST Follow-Up [facility] Liver Transplant Services [address] [place] [address] 36465 Herman Francis MD [address] [place] [address] 83300 documented as of this encounter Visit Diagnoses Not on filedocumented in this encounter Additional Health Concerns Infection Onset Date Last Indicated 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
--- OUTSIDE RECORDS SUMMARY | 2025-03-17 16:58 | XMS_ITS | Encounter Summary ---
Author Organization [facility] Address [address] [place] [address] Care Team Providers Care Terminal Carman Name Role Phone Nikhil Parisi Primary Care Provider [phone] Encounter Details Date Type Department Care Team (Late st Contact Info) Description 05/29/2016 Orders Only [facility] Specialty Pharmacy [facility] Building [address] [place] [address] Adelfo Garzon MD [address] [place] [address] Social History Tobacco Use Types Packs/Day Years [...] Description 05/05/2025 8:30 AM EST Office Visit [facility] Building Diabetes Clinic [address] [place] [address] 47382 Tool Die Maker: Sandra Schaffer, Abraham Ellison MD [address] [place] [address] 06/29/2025 9:00 AM EST Follow-Up [facility] Liver Transplant Services [address] [place] [address] 57133 Herman Francis MD [address] [place] [address] 53157 documented as of this encounter Visit Diagnoses Not on filedocumented in this encounter Additional Health Concerns Infection Onset Date Last Indicated Resolved Time 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
== END 2025-03-17 13:15 | disposition home or self-care (01) ==
LOC: HO.LAB 13:14
PROVIDERS: Internal Medicine; Absent Provider Internal Medicine Hypertension Specialist; PCP Physician Assistant Medical
DX: Z94.4 Liver transplant status (principal); Z79.60 Long term (current) use of unspecified immunomodulators and immunosuppressants
CPT/HCPCS: 36415; 80053; 80195; 83735; 85025

== ENCOUNTER 2025-04-24 09:22 | Outpatient (AMB) | payer MEDICARE, MEDICAID, SELFPAY ==
--- NOTE | 2025-04-24 09:39 | HO.NEPHOV_ITS ---
Vital Signs 04/24/25 09:40 Height 6 ft 1 in Weight 216 lb BMI 28.5 BP 122/70 Blood Pressure Location Lt brachial Position Sitting Pulse 94 Pulse Source Pulse Oximeter Pulse Oximetry (%) 95 Oxygen Delivery Method Room Air Intake Visit Reasons: 3 mo f/u w/ labs & US Outsole Scheduler Required: No Accompanied by: Self / Same As Patient Allergies No Known Allergies Allergy (Mild, Verified 04/24/25 09:42) NOT APPLICABLE Medication List - Last Reconciled 04/24/25 by Juan Seymour MD amlodipine 10 mg PO DAILY atorvastatin 10 mg PO DAILY buspirone 15 mg PO TID dulaglutide (Trulicity) mg subcut QWEEK metoprolol tartrate 25 mg PO BID mirtazapine 15 mg PO BEDTIME multivitamin 1 tab PO DAILY mycophenolate mofetil 500 mg PO BID sirolimus 0.5 mg PO DAILY terazosin 1 mg PO DAILY HPI Comments Details: - The patient is a 64-year-old male presenting for evaluation of chronic kidney disease. 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 - Diabetes Mellitus: Post-transplant diabetes, managed with Trulicity, stable glucose levels, significant weight loss. - Hypertension: Controlled with amlodipine and metoprolol. 04/24/25 History of Present Illness The patient is a 65 year old male presenting for a follow-up visit for management of chronic kidney disease and hypertension. His kidney function has been stable, with a creatinine of 1.6, compared to previous values of 1.7, 1.4, and 1.8. The patient reports he can view his lab trends on MyChart. His blood pressure is well-controlled, although he does not check it at home despite owning a machine. His medications include amlodipine and metoprolol 25 mg for blood pressure. The patient has a history of an organ transplant, for which he takes sirolimus and mycophenolate, and is followed by a liver specialist. For diabetes, he is on Trulicity and his blood sugars are typically below 150 mg/dL when he checks once daily. He has an upcoming appointment with his diabetes doctor. Recent labs from February showed a potassium of 4.2 and hemoglobin of 13.9. He reports adequate fluid intake with coffee and seltzer and avoids NSAIDs. [facility] Medical History (Updated 01/20/25 @ 11:59 by JERRY Cole) BPH (benign prostatic hyperplasia) Insomnia Anxiety Hyperlipidemia Hypertension Diabetes CKD (chronic kidney disease) Surgical History History of liver transplant Family History Mother No problems noted. Father No problems noted. Social History Housing: Apartment Patient Tobacco Use Status: Never used Tobacco e-Cigarette/Vaping Use: Never Used service: No Current occupational status: retired and disabled Cognitive needs: No Hearing needs: No Vision needs: Yes (rx glasses) Physical Exam Vital Signs: Last Vital Signs Pulse 94 04/24/25 09:40 BP 122/70 04/24/25 09:40 Pulse Ox 95 04/24/25 09:40 Oxygen Delivery Method Room Air 04/24/25 09:40 BMI result Body Mass Index 28.5 Comfortable Neck supple no JVD. Lungs entry equal no rales. Heart S1-S2 heard no gallop or rub. Abdomen soft nontender. Neuro alert awake oriented. No asterixis. Extremities no edema. Results Reviewed Nephrology Results: Hgb, (14.0-18.0) 13.9 g/dl L 03/17/25 WBC, (4.8-10.8) 6.6 X10*3/uL 03/17/25 Plt Count, (160-400) 144 X10*3/uL L 03/17/25 Sodium, (135-145) 141 mmol/L 03/17/25 Potassium, (3.3-5.1) 4.3 mmol/L 03/17/25 Chloride, (96-108) 109 mmol/L H 03/17/25 Carbon Dioxide, (22-29) 25 mmol/L 03/17/25 BUN, (9-16) 17 mg/dL H 03/17/25 Creatinine, (0.5-1.4) 1.63 mg/dL H 03/17/25 Calcium, (8.4-10.2) 9.0 mg/dL 03/17/25 Renal US 02/28/25 Assessment & Plan Assessment & Plan (1) CKD (chronic kidney disease): Code(s): N18.9 - Chronic kidney disease, unspecified Category: Medical Qualifiers: Chronic kidney disease stage: stage 3 (moderate) Chronic kidney disease stage 3 subtype: unspecified whether 3a or 3b Qualified Code(s): N18.30 - Chronic kidney disease, stage 3 unspecified Plan 1. Chronic Kidney Disease In the setting of liver transplant. Over the last 6 years serum creatinine has been around 1.6-2.0 mg/dL. This is probably his baseline. Urine sediments benign No evidence of obstruction - The patient's creatinine levels are stable, fluctuating around his baseline. - He was advised to continue good hydration and to avoid NSAIDs such as Aleve, Advil, and Motrin. - Follow-up is scheduled for 6 months. - An order for labs will be placed for 6 months, which can be combined with labs for other appointments. 2. History Of Liver Transplant - Continue sirolimus and mycophenolate. - [facility] follow[facility]up at [facility]. 3. Diabetes Mellitus - Continue Trulicity. - Regular glucose monitoring. Maintain A1c less than 7 4. Hypertension - Continue amlodipine and metoprolol. Maintain blood pressure less than 130/80 Avoid hypotension Encouraged to stand low-sodium diet - Regular blood pressure monitoring. Orders: Orders Basic Metabolic Panel 6 Months N18.30 - Chronic kidney disease, stage 3 unspecified, Z94.4 - Liver transplant status Total Protein Urine Random 6 Months N18.30 - Chronic kidney disease, stage 3 unspecified, Z94.4 - Liver transplant status UA and rflx microscopic 6 Months N18.30 - Chronic kidney disease, stage 3 unspecified, Z94.4 - Liver transplant status Creatinine Urine 6 Months N18.30 - Chronic kidney disease, stage 3 unspecified, Z94.4 - Liver transplant status Complete Blood Count no Diff 6 Months N18.30 - Chronic kidney disease, stage 3 unspecified, Z94.4 - Liver transplant status Coding Level of Care Code Est Pt Level 4 (78720) Diagnoses Stage 3 chronic kidney disease, unspecified whether stage 3a or 3b CKD N18.30 Chronic kidney disease stage: stage 3 (moderate) Chronic kidney disease stage 3 subtype: unspecified whether 3a or 3b
[2025-04-24 09:40] VITALS: BP 122/70; PULSE 94; O2SAT 95; BMI 28.5
== END 2025-04-24 09:54 | disposition home or self-care (01) ==
LOC: HO.HKA 09:22
PROVIDERS: PCP Physician Assistant Medical; Visit Provider Internal Medicine Hypertension Specialist
DX: N18.30 Chronic kidney disease, stage 3 unspecified (principal)
CPT/HCPCS: 99214

== ENCOUNTER → 2025-04-24 09:22 | Outpatient (BNVA) | payer MEDICARE, MEDICAID, SELFPAY | PROVIDERS: PCP Physician Assistant Medical; Visit Provider Internal Medicine Hypertension Specialist | DX: I10 Essential (primary) hypertension (principal); N18.30 Chronic kidney disease, stage 3 unspecified; E11.9 Type 2 diabetes mellitus without complications; Z94.4 Liver transplant status | CPT/HCPCS: 99212 ==